=== PATIENT | male | born 1945 | race Caucasian/White ===

== ENCOUNTER → 2017-09-01 13:26 | Outpatient (CLI) | payer MEDICARE, SELFPAY ==
[2017-09-01 15:04] LABS: Hematocrit 43.4 % (40-54); Hemoglobin 14.4 g/dl (13.0-16.5); Mean Corp Hgb Conc 33.2 g/gl (32-36); Mean Corpuscular Hgb 28.2 pg (27.0-32.0); Mean Corpuscular Volume 84.9 fL (80-94); Mean Platelet Vol. 11.1 fl (6.2-12.0); Platelet Count 225 K/mm3 (150-450); Red Blood Count 5.11 M/mm3 (4.6-6.2); White Blood Count 7.2 K/mm3 (4.4-11.0)
[2017-09-01 15:23] LABS: Hemoglobin A1c 6.5 % (4.2-6.3)
[2017-09-01 15:40] LABS: Scan Indicated on CBC? Y/N NO
[2017-09-01 16:55] LABS: Albumin, Serum 3.4 g/dL (3.2-5.0); BUN 24 mg/dL (7-18); BUN/Creat Ratio 15.9 RATIO (10-20); Calcium,Total 8.8 mg/dL (8.5-10.1); Chloride 97 mmol/L (98-107); Creatinine, Serum 1.51 mg/dL (0.70-1.30); EST Glomerular Filtration Rate 49 mL/min (>60); Est Glom Filt Rate - Afr Amer 59 mL/min (>60); Glucose 75 mg/dL (74-106); Magnesium 2.2 mg/dL (1.6-2.6); Phosphorus 2.7 mg/dL (2.5-4.9); Potassium 3.1 mmol/L (3.5-5.1); Sodium Level 137 mmol/L (136-145)
[2017-09-02 10:30] LABS: PTHIN 116.3 pg/mL (18.4-80.1)
[2017-09-02 10:34] LABS: Vitamin D,25 Hydroxy 11.1 ng/mL (19.95-100.01)
== END ==
PROVIDERS: Visit Provider Internal Medicine Nephrology
DX: E11.22 Type 2 diabetes mellitus with diabetic chronic kidney disease (principal); N18.3 Chronic kidney disease, stage 3 (moderate); E55.9 Vitamin D deficiency, unspecified
CPT/HCPCS: 36415; 80069; 82043; 82306; 82570; 83036; 83735; 83970; 85027

== ENCOUNTER → 2017-09-05 10:18 | Outpatient (CLI) | payer MEDICARE, SELFPAY ==
[2017-09-05 13:13] LABS: Microalbumin:Creatinine Ratio 166.4 mg/g CRE (<30 mg/g CRE)
== END ==
PROVIDERS: Visit Provider Internal Medicine Nephrology
DX: E55.9 Vitamin D deficiency, unspecified (principal); N18.3 Chronic kidney disease, stage 3 (moderate); E11.69 Type 2 diabetes mellitus with other specified complication
CPT/HCPCS: 36415; 82043; 82570

== ENCOUNTER → 2017-10-21 09:37 | Outpatient (CLI) | payer MEDICARE, SELFPAY ==
--- NOTE | 2017-10-21 09:45 | RAD_ITS ---
STUDY: X-RAY CHEST REASON FOR EXAM: Male, 72 years old. Patient has a history of lung cancer. TECHNIQUE: PA and lateral views of the chest. COMPARISON: Comparison is made with prior examination dated July 01, 2017. FINDINGS: There is a 4 cm x 3.5 cm nodular density in the medial aspect of the right upper lobe. Increased markings at the lung bases suggestive of scarring worse on the left side. There is blunting of the left costophrenic angle. Normal size heart. Normal mediastinum and sal. Prominence of the pulmonary arteries bilaterally. There is atherosclerotic calcification of the aortic arch with tortuosity. There are diffuse degenerative changes of the visualized thoracic spine. Normal visualized ribs, clavicles, and shoulders. There is no demonstrated abnormality of the visualized soft tissue structures of the upper abdomen. RAD/Chest PA and Lateral IMPRESSION: Persistent nodular density in the medial aspect of the right upper lobe. Pleural parenchymal changes at the left lung base. Electronically Signed: Uriah Tyson MD at 14:31 EDT Tel [phone], Service support ,
== END ==
PROVIDERS: PCP Family Medicine; Visit Provider Student in an Organized Health Care Education/Training Program
DX: C34.90 Malignant neoplasm of unspecified part of unspecified bronchus or lung (principal)
CPT/HCPCS: 71046

== ENCOUNTER → 2017-12-22 07:40 | Outpatient (CLI) | payer MEDICARE, SELFPAY ==
[2017-10-26 09:45] VITALS: BMI 34.0
--- NOTE | 2017-12-22 08:02 | CT_ITS ---
STUDY: CT CHEST WITHOUT CONTRAST REASON FOR EXAM: Male, 72 years old. History of lung cancer, nodule follow-up RADIATION DOSAGE (If Supplied By Facility): CTDIvol = ( 15.53 ) mGy, DLP = ( 574.52 ) mGycm TECHNIQUE: Transaxial imaging was performed without the administration of intravenous contrast material. Multiplanar coronal and sagittal images were reformatted. Individualized dose optimization techniques were used for this CT. COMPARISON: 06/01/2017 FINDINGS: Lung windows show underlying emphysema. There is a fibrotic scar in the right apex seen on axial image 13. A previously described mass in the posterior right upper lobe is again identified on axial image 27 measuring 2.94 x 1.96 cm essentially unchanged from the previous study. There are scattered interstitial changes in both lung bhat but no other suspicious mass or nodule noted. There is a small left pleural effusion with associated atelectasis in the left lung base. Soft tissue windows show normal-appearing left thyroid lobe. The right lobe has likely been removed. There are scattered subcentimeter axillary and mediastinal lymph nodes. Nodes measure up to 9 mm in short axis dimension largest is in the precarinal space on axial image 47. Dense peripheral calcifications noted in the thoracic aorta without aneurysm. There are calcified coronary vessels. There is a tiny pericardial effusion. Limited cuts through the upper abdomen show dense calcifications in the right lobe of liver unchanged from the previous study. Bony structures show degenerative change CT/Chest without Contrast IMPRESSION: Underlying emphysema. Previously described spiculated mass in the right upper lobe is essentially unchanged from the previous study. Stable fibrotic scar in the right apex No new suspicious noncalcified mass or nodule. Small left pleural effusion with associated atelectasis. Stable scattered axillary and mediastinal lymphadenopathy. Degenerative bony changes Stable hepatic calcifications Electronically Signed: Javier Machuca MD at 10:24 EDT , Service support ,
== END ==
PROVIDERS: PCP Family Medicine; Visit Provider Student in an Organized Health Care Education/Training Program
DX: C34.90 Malignant neoplasm of unspecified part of unspecified bronchus or lung (principal)
CPT/HCPCS: 71250

== ENCOUNTER 2018-01-08 09:00 | Outpatient (RCR) | payer MEDICARE, SELFPAY ==
[2017-10-26 09:45] VITALS: BMI 34.0
[2017-12-11 10:32] VITALS: BP 104/68; PULSE 71; RESP 18; TEMP 36.6; BMI 34.4
--- NOTE | 2017-12-11 13:09 | PCM.WC.HP ---
(1) Peripheral vascular occlusive disease Status: Acute Current Visit: Yes Code(s): I73.9 - Peripheral vascular disease, unspecified (2) Chronic a-fib Status: Chronic Current Visit: Yes Code(s): I48.2 - Chronic atrial fibrillation (3) Diabetes mellitus without complication Status: Chronic Current Visit: Yes Code(s): E11.9 - Type 2 diabetes mellitus without complications (4) Hypertension Status: Chronic Current Visit: Yes Qualifiers: Code(s): I10 - Essential (primary) hypertension (5) Hypothyroidism Status: Chronic Current Visit: Yes Code(s): E03.9 - Hypothyroidism, unspecified (6) Peripheral vascular disease Status: Chronic Current Visit: Yes Code(s): I73.9 - Peripheral vascular disease, unspecified (7) Lymphedema Status: Acute Current Visit: Yes Code(s): I89.0 - Lymphedema, not elsewhere classified History of Present Illness Date of Service: 12/11/17 Chief Complaint: Follow-up on bilateral lower leg edema and open areas History of Wound: 72-year-old white male patient that sees Dr. Rubalcava as primary care. Patient usually goes to the [facility] for his lower leg edema. They have only been changing dressings and they gave him a pump. The patient has never had any vascular studies done and therefore his legs have never really decreased in size and they have been fighting this for 20 years. He sleeps in a chair not in his bed because of a anand going up his back. Bilateral lower leg well-demarcated erythematous raised rash covering both ankles to knees on both bilateral legs. Bilateral feet are crusted and swollen. The was there in the room with us and she will help with dressing changes the ulcers on his legs are really skin tears and superficial breaks in skin from the seepage of the serous drainage that is soaking his bandages. Today we will start using Xeroform dressings to the superficial skin tear areas and put him in double layer Tubigrip's and get vascular studies and then probably have him follow-up with Dr. Dee. 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) Chronic respiratory failure (Chronic) COPD (chronic obstructive pulmonary disease) (Chronic) Chronic a-fib (Chronic) Past Medical History: Lymphedema peripheral vascular occlusive disease superficial ulcers of bilateral lower legs Surgical History: - - Thyroidectomy, left nephrectomy, appendectomy, skin biopsy Allergies/Adverse Reactions: Allergies Penicillins Adverse Reaction (Verified 12/11/17 11:25) Rash cephalixin Allergy (Uncoded 12/11/17 11:25) gi upset Home Medications: Ambulatory Orders Medication Instructions Recorded Levothyroxine [Synthroid] 100 mcg PO DAILY 03/31/14 Metoprolol Succinate 50 mg PO DAILY 03/31/14 Tamsulosin HCl [Flomax] 0.4 mg PO DAILY 03/31/14 Potassium 99 mg PO DAILY 10/12/15 traMADol [Ultram] 50 mg PO Q6H PRN PRN 10/12/15 Albuterol IH (ProAir) [Proair Hfa] 1 - 2 puff INHALATION Q6H PRN PRN 05/06/17 Fluticasone/Vilanterol [Breo 1 puff INHALATION DAILY 05/06/17 Ellipta 200-25 Mcg INH] Naproxen Sodium [Aleve] 220 mg PO Q12H PRN PRN 10/26/17 cyclobenzaprine 10 mg tablet 10 mg PO TID PRN 11/20/17 furosemide 40 mg tablet 40 mg PO QDAY 11/20/17 rivaroxaban 15 mg tablet 15 mg PO QPM 11/20/17 Digoxin [Lanoxin] 250 mcg PO DAILY 12/11/17 Finasteride [Proscar] 5 mg PO DAILY 12/11/17 - Family History Paternal Family History: Family History (Last Reviewed 11/20/17 @ 10:33 by Shayla Vigil) Father Cancer Cancer - Lung cancer Maternal Family History: Family History (Last Reviewed 11/20/17 @ 10:33 by Shayla Vigil) Father Cancer Heart Disease Lives: Spouse/ Significant Other Smoking Status: Former smoker Review of Systems Constitutional: Denies: Chills, Fever Eyes: Denies: Blurred vision, Drainage, Pain HEENT: Denies: Difficulty Hearing, Difficulty Swallowing, Sore Throat, Visual Changes Cardiovascular: Denies: Chest Pain, Palpitations, Syncope Respiratory: Denies: Cough, Shortness of Breath Gastrointestinal: Denies: Abdominal Pain, Nausea, Vomiting Genitourinary: Denies: Dysuria, Frequency Musculoskeletal: Denies: Joint Pain, Muscle pain Skin: Denies: Jaundice, Rash Neurological: Denies: Balance problems, Change in Speech, Difficulty swallowing, Focal weakness Psychiatric: Denies: Anxiety, Depression Endocrine: Denies: Change in Body Habitus Hematologic/ Lymphatic: Denies: Adenopathy - Physical Exam Vital Signs Temp Pulse Resp BP 97.8 F 71 18 104/68 12/11/17 10:32 12/11/17 10:32 12/11/17 10:32 12/11/17 10:32 General: Oriented x3, Cooperative, Well developed HEENT: Atraumatic, PERRLA Oral: Moist Mucosa Neck: Supple, No JVD Lungs: Clear to auscultation, Normal air movement Cardiovascular: Regular rate, Regular Rhythm Abdomen: Bowel Sounds Present, Soft, Non Tender, No Hepato-splenomegaly Extremities: No clubbing, Diminished Peripheral Pulses, Edema, - - Tamiko discolored lower extremities with superficial skin tears on both legs Wound Measurements and Assessment WC - Nurse 1 - General Ulcer Measurement Start: 12/11/17 09:49 Freq: Status: Active Protocol: Activity Type Activity Date Activity User E-Sign Co-Sign Detail Recorded Client Recorded Date Recorded By Document 12/11/17 10:32 [facility] [id number] 12/11/17 11:11 [facility] 12/11/17 10:32 Wound Center Nurse 1 [Ulcer Assessment] #7- LT LOWER CALF -Combined with other wound No -Current Size (cm) - Length 7.9 -Current Size (cm) - Width 3.5 -Current Size (cm) - Depth 0.1 -Total Square Cm 27.65 -Date of Last Picture (Recall this 12/11/17 field) -Photo Taken Yes -Epithelialization None Present -Tunneling No -Undermining/Tunneling No -Circular Undermining No -Exudate Amt Medium (34-66%) -Exudate Type Serous -Wound Margin Distinct, Outline Attached -Granulation Amt Large (67-100%) -Granulation Quality Red -Slough/Fibrin No -Necrosis Amt None Present (0 %) -Structure Exposed None/Limited to Skin Breakdown -Texture (Shani-wound Skin Appearance) Scarring -Moisture (Shani-wound Skin Appearance Maceration ) Weeping -Color (Shani-wound Skin Appearance) Erythema Hemosiderin Staining -Temperature (Shani-wound Skin No Abnormality Appearance) (Pt Warm) -Tenderness on Palpation (Shani-wound No Skin Appearance) -Ulcer Cleansing Wound Cleanser -Foul Odor after Cleansing No -Anesthetic Used 4% Lidocaine Solution #6- L LAT LEG SUPERIOR -Combined with other wound No -Current Size (cm) - Length 0.7 -Current Size (cm) - Width 0.5 -Current Size (cm) - Depth 0.1 -Total Square Cm 0.35 -Date of Last Picture (Recall this 12/11/17 field) -Photo Taken Yes -Epithelialization None Present -Tunneling No -Undermining/Tunneling No -Circular Undermining No -Exudate Amt Small (1-33%) -Exudate Type Serous -Wound Margin Distinct, Outline Attached -Granulation Amt Large (67-100%) -Granulation Quality Red -Slough/Fibrin No -Necrosis Amt None Present (0 %) -Structure Exposed N/A -Texture (Shani-wound Skin Appearance) Scarring -Moisture (Shani-wound Skin Appearance Maceration ) Weeping -Color (Shani-wound Skin Appearance) Erythema Hemosiderin Staining -Temperature (Shani-wound Skin No Abnormality Appearance) (Pt Warm) -Tenderness on Palpation (Shani-wound No Skin Appearance) -Ulcer Cleansing Wound Cleanser -Foul Odor after Cleansing No -Anesthetic Used 4% Lidocaine Solution #5- LT LAT LEG INFERIOR -Combined with other wound No -Current Size (cm) - Length 0.9 -Current Size (cm) - Width 0.3 -Current Size (cm) - Depth 0.1 -Total Square Cm 0.27 -Date of Last Picture (Recall this 12/11/17 field) -Photo Taken Yes -Epithelialization None Present -Tunneling No -Undermining/Tunneling No -Circular Undermining No -Exudate Amt Small (1-33%) -Exudate Type Serous -Wound Margin Distinct, Outline Attached -Granulation Amt None Present (0 %) -Slough/Fibrin Yes -Necrosis Amt Large (67-100%) -Necrotic Tissue Type Adherent Slough -Structure Exposed None/Limited to Skin Breakdown -Texture (Shani-wound Skin Appearance) Scarring -Moisture (Shani-wound Skin Appearance Maceration ) Weeping -Color (Shani-wound Skin Appearance) Erythema Hemosiderin Staining -Temperature (Shani-wound Skin No Abnormality Appearance) (Pt Warm) -Tenderness on Palpation (Shani-wound No Skin Appearance) -Ulcer Cleansing Wound Cleanser -Foul Odor after Cleansing No -Anesthetic Used 4% Lidocaine Solution #4- L LAT LEG CLUSTER -Combined with other wound No -Current Size (cm) - Length 8.4 -Current Size (cm) - Width 6.9 -Current Size (cm) - Depth 0.1 -Total Square Cm 57.96 -Date of Last Picture (Recall this 12/11/17 field) -Photo Taken Yes -Epithelialization None Present -Tunneling No -Undermining/Tunneling No -Circular Undermining No -Exudate Amt Medium (34-66%) -Exudate Type Serous -Wound Margin Distinct, Outline Attached -Granulation Amt Large (67-100%) -Granulation Quality Red -Slough/Fibrin No -Necrosis Amt None Present (0 %) -Structure Exposed None/Limited to Skin Breakdown -Texture (Shani-wound Skin Appearance) Scarring -Moisture (Shani-wound Skin Appearance Maceration ) Weeping -Color (Shani-wound Skin Appearance) Erythema Hemosiderin Staining -Temperature (Shani-wound Skin No Abnormality Appearance) (Pt Warm) -Tenderness on Palpation (Shani-wound No Skin Appearance) -Ulcer Cleansing Wound Cleanser -Foul Odor after Cleansing No -Anesthetic Used 4% Lidocaine Solution #3- LT BERNARD -Combined with other wound No -Current Size (cm) - Length 1.2 -Current Size (cm) - Width 0.2 -Current Size (cm) - Depth 0.1 -Total Square Cm 0.24 -Date of Last Picture (Recall this 12/11/17 field) -Photo Taken Yes -Epithelialization None Present -Tunneling No -Undermining/Tunneling No -Circular Undermining No -Exudate Amt Small (1-33%) -Exudate Type Serous -Wound Margin Distinct, Outline Attached -Granulation Amt Large (67-100%) -Granulation Quality Red -Slough/Fibrin No -Necrosis Amt None Present (0 %) -Structure Exposed None/Limited to Skin Breakdown -Texture (Shani-wound Skin Appearance) Scarring -Moisture (Shani-wound Skin Appearance Maceration ) Weeping -Color (Shani-wound Skin Appearance) Erythema Hemosiderin Staining -Temperature (Shani-wound Skin No Abnormality Appearance) (Pt Warm) -Tenderness on Palpation (Shani-wound No Skin Appearance) -Ulcer Cleansing Rinsed/ Irrigated with Saline -Foul Odor after Cleansing No -Anesthetic Used 4% Lidocaine Solution #2- LT UPPER MEDIAL LEG -Combined with other wound No -Current Size (cm) - Length 1.3 -Current Size (cm) - Width 0.9 -Current Size (cm) - Depth 0.1 -Total Square Cm 1.17 -Date of Last Picture (Recall this 12/11/17 field) -Photo Taken Yes -Epithelialization None Present -Tunneling No -Undermining/Tunneling No -Circular Undermining No -Exudate Amt Small (1-33%) -Exudate Type Serous -Wound Margin Distinct, Outline Attached -Granulation Amt Large (67-100%) -Granulation Quality Red -Slough/Fibrin No -Necrosis Amt None Present (0 %) -Structure Exposed None/Limited to Skin Breakdown -Texture (Shani-wound Skin Appearance) Scarring -Moisture (Shani-wound Skin Appearance Maceration ) Weeping -Color (Shani-wound Skin Appearance) Erythema Hemosiderin Staining -Temperature (Shani-wound Skin No Abnormality Appearance) (Pt Warm) -Tenderness on Palpation (Shani-wound No Skin Appearance) -Ulcer Cleansing Wound Cleanser -Foul Odor after Cleansing No -Anesthetic Used 4% Lidocaine Solution #1- RT LAT LEG -Combined with other wound No -Current Size (cm) - Length 1.8 -Current Size (cm) - Width 3.2 -Current Size (cm) - Depth 0.1 -Total Square Cm 5.76 -Date of Last Picture (Recall this 12/11/17 field) -Photo Taken Yes -Epithelialization None Present -Tunneling No -Undermining/Tunneling No -Circular Undermining No -Exudate Amt Medium (34-66%) -Exudate Type Serous -Wound Margin Distinct, Outline Attached -Granulation Amt Large (67-100%) -Granulation Quality Red -Slough/Fibrin No -Necrosis Amt None Present (0 %) -Structure Exposed None/Limited to Skin Breakdown -Texture (Shani-wound Skin Appearance) Scarring -Moisture (Shani-wound Skin Appearance Maceration ) Weeping -Color (Shani-wound Skin Appearance) Erythema Hemosiderin Staining -Temperature (Shani-wound Skin No Abnormality Appearance) (Pt Warm) -Tenderness on Palpation (Shani-wound No Skin Appearance) -Ulcer Cleansing Wound Cleanser -Foul Odor after Cleansing No -Anesthetic Used 4% Lidocaine Solution [Edema Assessment] -Lower Limb Edema Present Yes -Right Calf (cm) 47.1 -Right Ankle (cm) 30 -Left Calf (cm) 41 -Left Ankle (cm) 28.4 Musculoskeletal: No Tenderness to Palpation of Joints or Extremities Lymphatic: No Cervical, Supraclavicular, or Inguinal Adenopathy Neurological: Cranial nerves II-XII grossly intact, Neuro grossly intact Psych/Mental Status: Normal Affect, Appropriate, Alert and oriented to time, place, person, mood and affect Debridement Note No debridement was completed today Assessment/Plan Active Problems (Last Updated 11/06/17 @ 14:15 by Shayla Vigil) Peripheral vascular occlusive disease (Acute) Lymphedema (Acute) Diabetes mellitus without complication (Chronic) Hypertension (Chronic) Peripheral vascular disease (Chronic) Hypothyroidism (Chronic) Chronic a-fib (Chronic) Assessment: peripheral vascular occlusive disease. Lymphedema. Skin tears for superficial ulcers bilateral lower legs. A. fib Plan: Wash legs with Hibiclens. Apply Xeroform dressings to all open areas. Then gauze legs and wrap with Geovani Tubigrip's. Get the ultrasounds and the arterial brachial studies done of bilateral lower legs. follow Up in 1 week
--- NOTE | 2018-01-04 12:29 | VDLE_ITS ---
Reason For Study: edema, nonhealing wounds RIGHT LEFT CFV is compressible, spontaneous, phasic, CFV is compressible, spontaneous, phasic, competent and demonstrates normal competent, and demonstrates normal augmentation. augmentation. FV is compressible, spontaneous, phasic, FV is compressible, spontaneous, phasic, competent and demonstrates normal competent and demonstrates normal augmentation. augmentation. POP V is compressible, spontaneous, phasic, POP V is compressible, spontaneous, phasic, competent and demonstrates normal competent and demonstrates normal augmentation. augmentation. T/P Trunk is compressible. T/P Trunk is compressible. PTV is compressible. PTV is compressible. RT PerV is compressible. LT PerV is compressible. S-F Junction is competent. S-F Junction is competent. GSV is competent throughout. GSV is coompetent throughout. SSV is competent. SSV is incompetent for greater than .5 seconds. SSv measures .625 x .661 cm. Interpretation Summary Deep veins of the lower extremities are bilaterally patent and compressible segmentally. There is no evidence of deep vein thrombosis on either side. Valvular competence appears intact within the proximal deep venous systems bilaterally. The greater saphenous veins appear bilaterally patent and compressible segmentally. Sapheno-femoral junctions are bilaterally competent . Valvular competence appears to be intact segmentally within the greater saphenous veins bilaterally. The right small saphenous vein is patent and competent. The left small saphenous vein is patent and incompetent. Ordering Physician: ILEANA PERES Performed By: Calderon Sewell RVT
--- NOTE | 2018-01-05 14:41 | LEAS ---
Arterial Study - Arterial Study Arterial Study: This is a 72-year-old male who presents with a history of atrial fibrillation, chronic obstructive pulmonary disease, diabetes mellitus, hypertension, and smoking. The patient also has a history of peripheral arterial occlusive disease. He is brought to the noninvasive vascular laboratory at this time for the purpose of bilateral noninvasive lower extremity arterial assessment. Doppler signal assessment was used to evaluate the pulses at ankle level bilaterally. The posterior tibial and dorsalis pedis pulses were triphasic bilaterally. Segmental limb pressures were obtained bilaterally. The right ankle pressure, as determined by posterior tibial pulse, was measured at 127 mmHg. The right ankle pressure, as determined by dorsalis pedis pulse, was measured at 143 mmHg. The right digital pressure was measured at 109 mmHg. The left ankle pressure, as determined by posterior tibial pulse, was measured at 138 mmHg. The left ankle pressure, as determined by dorsalis pedis pulse, was measured at 145 mmHg. The left digital pressure was measured at 100 mmHg. Pulse-volume recordings were obtained bilaterally and segmentally. Waveform amplitudes appeared to be satisfactory at all levels bilaterally, including low thigh, calf, ankle, and digital levels. Resting ankle-brachial indices were calculated bilaterally. The resting right ankle-brachial index was calculated to be 1.22. The resting left ankle-brachial index was calculated to be 1.24. Digital-brachial indices were calculated bilaterally. The right digital-brachial index was calculated to be 0.93. The left digital-brachial index was calculated to be 0.85. Impression: Based upon the findings of this resting noninvasive lower extremity arterial study, there is no evidence of significant atherosclerotic peripheral arterial occlusive disease in the lower extremities bilaterally. Triphasic waveforms were noted at ankle level bilaterally. Resting ankle-brachial indices were bilaterally normal. Digital-brachial indices were also normal bilaterally. In summary, this represents a normal resting noninvasive lower extremity arterial study bilaterally.
--- NOTE | 2018-01-05 14:49 | LEAS_ITS ---
Arterial Study - Arterial Study Arterial Study: This is a 72-year-old male who presents with a history of atrial fibrillation, chronic obstructive pulmonary disease, diabetes mellitus, hypertension, and smoking. The patient also has a history of peripheral arterial occlusive disease. He is brought to the noninvasive vascular laboratory at this time for the purpose of bilateral noninvasive lower extremity arterial assessment. Doppler signal assessment was used to evaluate the pulses at ankle level bilaterally. The posterior tibial and dorsalis pedis pulses were triphasic bilaterally. Segmental limb pressures were obtained bilaterally. The right ankle pressure, as determined by posterior tibial pulse, was measured at 127 mmHg. The right ankle pressure, as determined by dorsalis pedis pulse, was measured at 143 mmHg. The right digital pressure was measured at 109 mmHg. The left ankle pressure, as determined by posterior tibial pulse, was measured at 138 mmHg. The left ankle pressure, as determined by dorsalis pedis pulse, was measured at 145 mmHg. The left digital pressure was measured at 100 mmHg. Pulse-volume recordings were obtained bilaterally and segmentally. Waveform amplitudes appeared to be satisfactory at all levels bilaterally, including low thigh, calf, ankle, and digital levels. Resting ankle-brachial indices were calculated bilaterally. The resting right ankle-brachial index was calculated to be 1.22. The resting left ankle- brachial index was calculated to be 1.24. Digital-brachial indices were calculated bilaterally. The right digital- brachial index was calculated to be 0.93. The left digital-brachial index was calculated to be 0.85. Impression: Based upon the findings of this resting noninvasive lower extremity arterial study, there is no evidence of significant atherosclerotic peripheral arterial occlusive disease in the lower extremities bilaterally. Triphasic waveforms were noted at ankle level bilaterally. Resting ankle-brachial indices were bilaterally normal. Digital-brachial indices were also normal bilaterally. In summary, this represents a normal resting noninvasive lower extremity arterial study bilaterally.
[2018-01-08 08:50] VITALS: BP 100/60; PULSE 65; RESP 18; TEMP 36.9; BMI 34.4
--- NOTE | 2018-01-08 11:41 | PCM.WC.PN ---
(1) Peripheral vascular occlusive disease Status: Acute Current Visit: Yes Code(s): I73.9 - Peripheral vascular disease, unspecified (2) Chronic a-fib Status: Chronic Current Visit: Yes Code(s): I48.2 - Chronic atrial fibrillation (3) Diabetes mellitus without complication Status: Chronic Current Visit: Yes Code(s): E11.9 - Type 2 diabetes mellitus without complications (4) Hypertension Status: Chronic Current Visit: Yes Qualifiers: Code(s): I10 - Essential (primary) hypertension (5) Hypothyroidism Status: Chronic Current Visit: Yes Code(s): E03.9 - Hypothyroidism, unspecified (6) Peripheral vascular disease Status: Chronic Current Visit: Yes Code(s): I73.9 - Peripheral vascular disease, unspecified (7) Lymphedema Status: Acute Current Visit: Yes Code(s): I89.0 - Lymphedema, not elsewhere classified (8) Peripheral arterial occlusive disease Status: Acute Current Visit: Yes Code(s): I77.9 - Disorder of arteries and arterioles, unspecified Type of Wound Date of Service: 01/08/18 Chief Complaint: Follow-up on bilateral lower leg edema and open areas History of Wound: 72-year-old white male patient that sees Dr. Rubalcava as primary care. Patient usually goes to the [facility] for his lower leg edema. They have only been changing dressings and they gave him a pump. The patient has never had any vascular studies done and therefore his legs have never really decreased in size and they have been fighting this for 20 years. He sleeps in a chair not in his bed because of a anand going up his back. Bilateral lower leg well-demarcated erythematous raised rash covering both ankles to knees on both bilateral legs. Bilateral feet are crusted and swollen. The was there in the room with us and she will help with dressing changes the ulcers on his legs are really skin tears and superficial breaks in skin from the seepage of the serous drainage that is soaking his bandages. Today we will start using Xeroform dressings to the superficial skin tear areas and put him in double layer Tubigrip's and get vascular studies and then probably have him follow-up with Dr. Dee. Progress of Wound: Today we went over his arterial brachial and venous studies. They show minimal venous occlusion in the left calf area. The arterial study shows some suggestion of severe arterial disease with some narrowing as he goes into his toes. Patient is going to be referred to Dr. Dee for further evaluation and treatment. Patient has had his leg squeezed down enough now that he can wear his stockings which is new and a good sign. Patient was in much better spirits than his last visit with us. His was quite thankful for getting the studies done and getting to the right Dr. - Physical Exam Vital Signs Temp Pulse Resp BP 98.4 F 65 18 100/60 01/08/18 08:50 01/08/18 08:50 01/08/18 08:50 01/08/18 08:50 General: Oriented x3, Cooperative, Well developed HEENT: Atraumatic, PERRLA Oral: Moist Mucosa Neck: Supple, No JVD Lungs: Clear to auscultation, Normal air movement Cardiovascular: Regular rate, Regular Rhythm Abdomen: Bowel Sounds Present, Soft, Non Tender, No Hepato-splenomegaly Extremities: No clubbing, Edema, - - Peripheral vascular and peripheral arterial disease bilateral lower legs Skin: Rash Present Wound Measurements and Assessment WC - Nurse 1 - General Ulcer Measurement Start: 12/11/17 09:49 Freq: Status: Active Protocol: Activity Type Activity Date Activity User E-Sign Co-Sign Detail Recorded Client Recorded Date Recorded By Document 01/08/18 08:50 [id number] 01/08/18 09:19 01/08/18 08:50 Wound Center Nurse 1 [Ulcer Assessment] #8- LT LOWER CALF -Combined with other wound No -Current Size (cm) - Length 1.5 -Current Size (cm) - Width 1.5 -Current Size (cm) - Depth 0.1 -Total Square Cm 2.25 -Photo Taken No -Epithelialization Small 1-33% -Tunneling No -Undermining/Tunneling No -Circular Undermining No -Classification - Thickness Full Thickness without Exposed Support Structure -Exudate Amt Small (1-33%) -Exudate Type Serous -Wound Margin Distinct, Outline Attached -Granulation Amt Large (67-100%) -Granulation Quality [place] -Slough/Fibrin Yes -Necrosis Amt Small (1-33%) -Necrotic Tissue Type Adherent Slough -Structure Exposed Fascia Fat Layer Exposed -Texture (Shani-wound Skin Appearance) Assessed Localized Edema Scarring -Moisture (Shani-wound Skin Appearance No Abnormality ) -Color (Shani-wound Skin Appearance) Erythema Hemosiderin Staining -Temperature (Shani-wound Skin No Abnormality Appearance) (Pt Warm) -Tenderness on Palpation (Shani-wound No Skin Appearance) -Ulcer Cleansing hibiclens -Foul Odor after Cleansing No -Anesthetic Used 4% Lidocaine Solution #7- L LAT LEG SUPERIOR -Combined with other wound No -Current Size (cm) - Length 0 -Current Size (cm) - Width 0 -Current Size (cm) - Depth 0 -Total Square Cm 0 -Date of Last Picture (Recall this 01/08/18 field) -Photo Taken Yes -Epithelialization Large 67-100% -Tunneling No -Undermining/Tunneling No -Circular Undermining No -Classification - Thickness Full Thickness without Exposed Support Structure -Exudate Amt None Present (0 %) -Wound Margin Distinct, Outline Attached -Granulation Amt Large (67-100%) -Granulation Quality [place] -Slough/Fibrin No -Necrosis Amt None Present (0 %) -Structure Exposed None/Limited to Skin Breakdown -Texture (Shani-wound Skin Appearance) Localized Edema Scarring -Moisture (Shani-wound Skin Appearance Dry/Scaly ) -Color (Shani-wound Skin Appearance) Hemosiderin Staining -Temperature (Shani-wound Skin No Abnormality Appearance) (Pt Warm) -Tenderness on Palpation (Shani-wound No Skin Appearance) -Ulcer Cleansing hibiclens -Foul Odor after Cleansing No #6- LT LAT LEG INFERIOR -Combined with other wound No -Current Size (cm) - Length 0 -Current Size (cm) - Width 0 -Current Size (cm) - Depth 0 -Total Square Cm 0 -Date of Last Picture (Recall this 01/08/18 field) -Photo Taken Yes -Epithelialization Large 67-100% -Tunneling No -Undermining/Tunneling No -Circular Undermining No -Classification - Thickness Full Thickness without Exposed Support Structure -Exudate Amt None Present (0 %) -Wound Margin Distinct, Outline Attached -Granulation Amt Large (67-100%) -Granulation Quality [place] -Slough/Fibrin No -Necrosis Amt None Present (0 %) -Structure Exposed None/Limited to Skin Breakdown -Texture (Shani-wound Skin Appearance) Localized Edema Scarring -Moisture (Shani-wound Skin Appearance Dry/Scaly ) -Color (Shani-wound Skin Appearance) Hemosiderin Staining -Temperature (Shani-wound Skin No Abnormality Appearance) (Pt Warm) -Tenderness on Palpation (Shani-wound No Skin Appearance) -Ulcer Cleansing hibclens -Foul Odor after Cleansing No #5- L LAT LEG CLUSTER -Combined with other wound No -Current Size (cm) - Length 6.0 -Current Size (cm) - Width 6.5 -Current Size (cm) - Depth 0.1 -Total Square Cm 39.00 -Epithelialization Small 1-33% -Tunneling No -Undermining/Tunneling No -Circular Undermining No -Classification - Thickness Full Thickness without Exposed Support Structure -Exudate Amt Medium (34-66%) -Exudate Type Serous -Wound Margin Fibrotic Scar, Thickened Scar -Granulation Amt Large (67-100%) -Granulation Quality [place] -Slough/Fibrin Yes -Necrosis Amt Small (1-33%) -Necrotic Tissue Type Adherent Slough -Structure Exposed Fascia Fat Layer Exposed -Texture (Shani-wound Skin Appearance) Friable Localized Edema Scarring -Moisture (Shani-wound Skin Appearance Weeping ) -Color (Shani-wound Skin Appearance) Erythema Hemosiderin Staining -Temperature (Shani-wound Skin No Abnormality Appearance) (Pt Warm) -Tenderness on Palpation (Shani-wound No Skin Appearance) -Ulcer Cleansing hibiclens -Foul Odor after Cleansing No -Anesthetic Used 4% Lidocaine Solution #4- LT BERNARD -Combined with other wound No -Current Size (cm) - Length 0 -Current Size (cm) - Width 0 -Current Size (cm) - Depth 0 -Total Square Cm 0 -Date of Last Picture (Recall this 01/08/18 field) -Photo Taken Yes -Epithelialization Large 67-100% -Tunneling No -Undermining/Tunneling No -Circular Undermining No -Classification - Thickness Full Thickness without Exposed Support Structure -Exudate Amt None Present (0 %) -Wound Margin Distinct, Outline Attached -Granulation Quality [place] -Slough/Fibrin No -Necrosis Amt None Present (0 %) -Structure Exposed None/Limited to Skin Breakdown -Texture (Shani-wound Skin Appearance) Localized Edema Scarring -Moisture (Shani-wound Skin Appearance Dry/Scaly ) -Color (Shani-wound Skin Appearance) Erythema Hemosiderin Staining -Temperature (Shani-wound Skin No Abnormality Appearance) (Pt Warm) -Ulcer Cleansing hibiclens -Foul Odor after Cleansing No #3- LT UPPER MEDIAL LEG -Combined with other wound No -Current Size (cm) - Length 0 -Current Size (cm) - Width 0 -Current Size (cm) - Depth 0 -Total Square Cm 0 -Date of Last Picture (Recall this 01/08/18 field) -Photo Taken Yes -Epithelialization Large 67-100% -Tunneling No -Undermining/Tunneling No -Circular Undermining No -Classification - Thickness Full Thickness without Exposed Support Structure -Exudate Amt None Present (0 %) -Wound Margin Distinct, Outline Attached -Granulation Amt Large (67-100%) -Granulation Quality [place] -Slough/Fibrin No -Necrosis Amt None Present (0 %) -Structure Exposed None/Limited to Skin Breakdown -Texture (Shani-wound Skin Appearance) Localized Edema Scarring -Moisture (Shani-wound Skin Appearance Dry/Scaly ) -Color (Shani-wound Skin Appearance) Hemosiderin Staining -Temperature (Shani-wound Skin No Abnormality Appearance) (Pt Warm) -Tenderness on Palpation (Shani-wound No Skin Appearance) -Ulcer Cleansing hibiclens -Foul Odor after Cleansing No #2- RT LAT LEG -Combined with other wound No -Current Size (cm) - Length 0 -Current Size (cm) - Width 0 -Current Size (cm) - Depth 0 -Total Square Cm 0 -Date of Last Picture (Recall this 01/08/18 field) -Photo Taken Yes -Epithelialization Large 67-100% -Tunneling No -Undermining/Tunneling No -Circular Undermining No -Classification - Thickness Full Thickness without Exposed Support Structure -Exudate Amt None Present (0 %) -Wound Margin Distinct, Outline Attached -Granulation Amt Large (67-100%) -Granulation Quality [place] -Slough/Fibrin No -Necrosis Amt None Present (0 %) -Structure Exposed None/Limited to Skin Breakdown -Texture (Shani-wound Skin Appearance) Localized Edema Scarring -Moisture (Shani-wound Skin Appearance Dry/Scaly ) -Color (Shani-wound Skin Appearance) Erythema Hemosiderin Staining -Temperature (Shani-wound Skin No Abnormality Appearance) (Pt Warm) -Tenderness on Palpation (Shani-wound No Skin Appearance) -Ulcer Cleansing hibiclens -Foul Odor after Cleansing No [Edema Assessment] -Lower Limb Edema Present Yes -Right Calf (cm) 42.0 -Right Ankle (cm) 29.0 -Left Calf (cm) 40.5 -Point of Measurement (cm from the 28.0 medial instep) Musculoskeletal: No Tenderness to Palpation of Joints or Extremities Lymphatic: No Cervical, Supraclavicular, or Inguinal Adenopathy Neurological: Cranial nerves II-XII grossly intact, Neuro grossly intact Psych/Mental Status: Normal Affect, Appropriate, Alert and oriented to time, place, person, mood and affect Debridement Note No debridement was completed today Assessment/Plan Active Problems (Last Updated 11/06/17 @ 14:15 by Shayla Vigil) Peripheral vascular occlusive disease (Acute) Lymphedema (Acute) Peripheral arterial occlusive disease (Acute) Diabetes mellitus without complication (Chronic) Hypertension (Chronic) Peripheral vascular disease (Chronic) Hypothyroidism (Chronic) Chronic a-fib (Chronic) Assessment: peripheral vascular occlusive disease. Lymphedema. Skin tears for superficial ulcers bilateral lower legs. A. fib. Peripheral arterial occlusive disease Plan: Patient was instructed to use amLactin cream to all dry areas on his lower legs and to continue wearing his compression stockings. A referral has been made to Dr. Dee for further evaluation of his venous and arterial occlusive problem.
== END 2018-01-09 23:59 ==
LOC: WC 09:00
PROVIDERS: PCP Family Medicine; Visit Provider Nurse Practitioner
DX: E11.51 Type 2 diabetes mellitus with diabetic peripheral angiopathy without gangrene (principal); I10 Essential (primary) hypertension; I89.0 Lymphedema, not elsewhere classified; J44.9 Chronic obstructive pulmonary disease, unspecified; I48.0 Paroxysmal atrial fibrillation; Z79.899 Other long term (current) drug therapy; Z87.891 Personal history of nicotine dependence; S81.812A Laceration without foreign body, left lower leg, initial encounter; S81.811A Laceration without foreign body, right lower leg, initial encounter; X58.XXXA Exposure to other specified factors, initial encounter; R60.0 Localized edema
CPT/HCPCS: 11042; 93923; 93970; 99212; 99214; G0463

== ENCOUNTER → 2018-02-12 14:48 | Outpatient (CLI) | payer MEDICARE, SELFPAY ==
[2017-10-26 09:45] VITALS: BMI 34.0
[2018-02-12 15:57] LABS: Hematocrit 39.1 % (40-54); Hemoglobin 12.1 g/dl (13.0-16.5); Mean Corp Hgb Conc 30.9 g/gl (32-36); Mean Corpuscular Hgb 26.2 pg (27.0-32.0); Mean Corpuscular Volume 84.6 fL (80-94); Mean Platelet Vol. 10.1 fl (6.2-12.0); Platelet Count 226 K/mm3 (150-450); RBC Distribution Width CV 18.5 % (11.6-14.6); RBC Distribution Width SD 57.1 fl (35.1-43.9); Red Blood Count 4.62 M/mm3 (4.6-6.2)
[2018-02-12 16:02] LABS: Scan Indicated on CBC? Y/N NO
[2018-02-12 16:07] LABS: Albumin, Serum 3.3 g/dL (3.2-5.0); BUN 25 mg/dL (7-18); BUN/Creat Ratio 19.7 RATIO (10-20); Calcium,Total 9.2 mg/dL (8.5-10.1); Chloride 98 mmol/L (98-107); Creatinine, Serum 1.27 mg/dL (0.70-1.30); EST Glomerular Filtration Rate 59 mL/min (>60); Est Glom Filt Rate - Afr Amer 72 mL/min (>60); Glucose 89 mg/dL (74-106); Magnesium 2.2 mg/dL (1.6-2.6); Phosphorus 3.3 mg/dL (2.5-4.9); Potassium 3.2 mmol/L (3.5-5.1); Sodium Level 141 mmol/L (136-145)
[2018-02-12 16:19] LABS: Vitamin D,25 Hydroxy 15.5 ng/mL (29.95-100.01)
[2018-02-12 16:34] LABS: Creatinine, Urine (random) < 13.00 mg/dL (NO RANGE EST.); Microalbumin,Random Urine 7.8 mg/L (NO RANGE EST.)
[2018-02-12 16:43] LABS: PTHIN 69.3 pg/mL (18.4-80.1)
== END ==
PROVIDERS: PCP Family Medicine; Visit Provider Internal Medicine Nephrology
DX: E11.22 Type 2 diabetes mellitus with diabetic chronic kidney disease (principal); N18.3 Chronic kidney disease, stage 3 (moderate); E55.9 Vitamin D deficiency, unspecified
CPT/HCPCS: 36415; 80069; 82043; 82306; 82570; 83036; 83735; 83970; 85027

== ENCOUNTER 2018-02-27 23:16 | Inpatient (IN) | payer MEDICARE, SELFPAY ==
[2017-10-26 09:45] VITALS: BMI 34.0
[2018-02-27 23:17] VITALS: BP 100/68; PULSE 73; RESP 16; TEMP 36.6; O2SAT 99; BMI 29.4
[2018-02-27 23:21] VITALS: O2SAT 99
[2018-02-27 23:34] VITALS: BP 88/54; PULSE 72; RESP 16; O2SAT 99
[2018-02-27 23:46] VITALS: PULSE 70; RESP 14
[2018-02-27] MEDS: Albuterol 2.5 MG/3 ML VIAL.NEB. INHALATION (23:46)
[2018-02-27] MEDS: Ipratropium/Albuterol Sulfate 3 ML AMPUL.NEB INHALATION (23:46)
--- NOTE | 2018-02-27 23:46 | ED.VISSUMM ---
- ER Visit Summary Date of Service: 02/27/18 Chief Complaint: Shortness of breath, generalized weakness and low blood pressure. History of Present Illness: The patient is a 72 M 3 of COPD on 5-6 L of oxygen at home. Also history of hmi-fkiymyv-asggdtnrh diabetes, treated for hypertension, history of A. fib on Xarelto. Patient had multiple cancers including lung, renal with a renal resection and thyroid cancer. He has had shortness of breath the last 2 days. And just been generally weak. He denies fever. He denies vomiting. He denies diarrhea or melena. He denies chest pain. Physical Examination: Older male vital signs initial blood pressure 100/38. Pulse ox is 99 but that is on 6 L of O2. He does not look septic or toxic currently. He does not look significantly dehydrated. H EENT exam unremarkable other than poor dentition. Neck nontender no JVD. No lymphadenopathy. Lungs coarse breath sounds bilaterally. No rales or rhonchi. Few scattered wheezes. Heart regular rhythm rate about 70. Abdomen soft nontender. Normal bowel sounds no peritoneal signs. Moving all 4 extremities. 1+ pitting edema both lower extremities. Equal symmetrical. Calves nontender. He does have compression stockings on his lower extremities. Neurologically is awake and alert moving all 4 extremities. Back is nontender. Test Results: EKG shows a sinus rhythm rate of 73 with a first-degree AV block. Right bundle branch block. Appears very similar to a prior EKG from April 2017. Chest x-ray shows chronic changes consistent with COPD and a right upper lung mass which is chronic. CBC shows a white count of 10. A hemoglobin of 7.7 within the last week his hemoglobin was 12. This is consistent with acute blood loss. I did a rectal exam on the patient is black stool consistent with an upper GI bleed. He is on Xarelto. Electrolytes show a BUN of 60 a creatinine of 1.38 which is his baseline renal insufficiency. Urinalysis is pending he is not given his urine yet his troponin is slightly elevated 0.049. His lactate is 3.0. Emergency Department Course and Treatment: Patient be treated with a liter normal saline bolus. Aerosol treatments with DuoNeb and albuterol. IV Solu-Medrol. I believe the patient's shortness of breath is from anemia. I believe the anemia is from an upper GI bleed. He is being typed and crossed. For 4 units. He will be transfused 2 units. He will also be started on Protonix. I spoke to Dr. Thomas the night hospitalist will admit him in the ICU. Also spoke to the on-call surgeon who can be consulted in the morning for upper endoscopy. Treatment Plan: ICU admission. Transfusion. Treated for an upper GI bleed. Disposition: Admission Impression: Acute dyspnea Acute hypotension Acute GI bleed suspect upper Anemia Critical care time 30 minutes. This note was generated with [employer] dictation software. It may contain incorrect words, spelling, and punctuation that were not noted in review of the chart prior to signing ED Disposition - Plan for ED Patient: Chief Complaint: Shortness of Breath Referrals: Thong Rubalcava MD [Primary Care Provider] -
--- NOTE | 2018-02-27 23:49 | ED.DCSUM_ITS ---
- ER Visit Summary Date of Service: 02/27/18 Chief Complaint: Shortness of breath, generalized weakness and low blood pressure. History of Present Illness: The patient is a 72 M 3 of COPD on 5-6 L of oxygen at home. Also history of vki-dhfykjm-eswvkybbn diabetes, treated for hypertension, history of A. fib on Xarelto. Patient had multiple cancers including lung, renal with a renal resection and thyroid cancer. He has had shortness of breath the last 2 days. And just been generally weak. He denies fever. He denies vomiting. He denies diarrhea or melena. He denies chest pain. Physical Examination: Older male vital signs initial blood pressure 100/38. Pulse ox is 99 but that is on 6 L of O2. He does not look septic or toxic currently. He does not look significantly dehydrated. H EENT exam unremarkable other than poor dentition. Neck nontender no JVD. No lymphadenopathy. Lungs coarse breath sounds bilaterally. No rales or rhonchi. Few scattered wheezes. Heart regular rhythm rate about 70. Abdomen soft nontender. Normal bowel sounds no peritoneal signs. Moving all 4 extremities. 1+ pitting edema both lower extremities. Equal symmetrical. Calves nontender. He does have compression stockings on his lower extremities. Neurologically is awake and alert moving all 4 extremities. Back is nontender. Test Results: EKG shows a sinus rhythm rate of 73 with a first-degree AV block. Right bundle branch block. Appears very similar to a prior EKG from April 2017. Chest x-ray shows chronic changes consistent with COPD and a right upper lung mass which is chronic. CBC shows a white count of 10. A hemoglobin of 7.7 within the last week his hemoglobin was 12. This is consistent with acute blood loss. I did a rectal exam on the patient is black stool consistent with an upper GI bleed. He is on Xarelto. Electrolytes show a BUN of 60 a creatinine of 1.38 which is his baseline renal insufficiency. Urinalysis is pending he is not given his urine yet his troponin is slightly elevated 0.049. His lactate is 3.0. Emergency Department Course and Treatment: Patient be treated with a liter normal saline bolus. Aerosol treatments with DuoNeb and albuterol. IV Solu- Medrol. I believe the patient's shortness of breath is from anemia. I believe the anemia is from an upper GI bleed. He is being typed and crossed. For 4 units. He will be transfused 2 units. He will also be started on Protonix. I spoke to Dr. Thomas the night hospitalist will admit him in the ICU. Also spoke to the on-call surgeon who can be consulted in the morning for upper endoscopy. Treatment Plan: ICU admission. Transfusion. Treated for an upper GI bleed. Disposition: Admission Impression: Acute dyspnea Acute hypotension Acute GI bleed suspect upper Anemia Critical care time 30 minutes. This note was generated with [employer] dictation software. It may contain incorrect words, spelling, and punctuation that were not noted in review of the chart prior to signing ED Disposition - Plan for ED Patient: Chief Complaint: Shortness of Breath Referrals: Thong Rubalcava MD [Primary Care Provider] -
[2018-02-27] MEDS: 0.9% Normal Saline 1,000 ML 999 ML IV (23:51)
[2018-02-27] MEDS: MethylPREDNISolone 125 MG/2 ML Vial IV (23:51)
[2018-02-28] VITALS (49 sets, daily range): BP systolic 92–117; BP diastolic 44–88; PULSE 68–86; RESP 11–20; TEMP 36.4–36.9; O2SAT 89–100; BMI 29.0; BMI 29.1
[2018-02-28 00:08] LABS: Anion Gap 7 (5-15); BUN 60 mg/dL (7-18); BUN/Creat Ratio 43.5 RATIO (10-20); Calcium,Total 8.6 mg/dL (8.5-10.1); Chloride 100 mmol/L (98-107); Creatinine, Serum 1.38 mg/dL (0.70-1.30); EST Glomerular Filtration Rate 54 mL/min (>60); Est Glom Filt Rate - Afr Amer 65 mL/min (>60); Glucose 106 mg/dL (74-106); Potassium 3.2 mmol/L (3.5-5.1); Sodium Level 140 mmol/L (136-145)
[2018-02-28 00:10] LABS: Absolute Lymphocyte Count 1.27 X10^3/ul (0.83-4.51); Absolute Neutrophil Count 8.4 X10^3/uL (2.0-7.7); Basophil# 0.06 X10^3/uL; Basophil% 0.5 % (0-1); Eosinophil# 0.07 X10^3/uL; Eosinophils% 0.6 % (0-5); Hemoglobin 7.7 g/dl (13.0-16.5); Lymphocyte # 1.27 X10^3/ul (4.0); Lymphocyte % 11.6 % (19-41); Mean Corp Hgb Conc 30.8 g/gl (32-36); Mean Corpuscular Hgb 25.8 pg (27.0-32.0); Mean Corpuscular Volume 83.9 fL (80-94); Mean Platelet Vol. 9.6 fl (6.2-12.0); Monocyte# 1.07 X10^3/uL; Monocyte% 9.8 % (0-10); Neutrophil # 8.42 X10^3/uL (2.7-7.7); Neutrophil % 77.2 % (47-70); Platelet Count 283 K/mm3 (150-450); RBC Distribution Width SD 54.6 fl (35.1-43.9); Red Blood Count 2.98 M/mm3 (4.6-6.2); White Blood Count 10.9 K/mm3 (4.4-11.0)
[2018-02-28 00:11] LABS: POSITIVE COUNT NO; POSITIVE DIFFERENTIAL NO; POSITIVE MORPHOLOGY NO
--- NOTE | 2018-02-28 00:43 | ED.RN ---
DR CORNEJO MADE AWARE OF LACTIC ACID 3.0.
[2018-02-28 00:50] LABS: Bacteria 0 SEEN /hpf (None Seen); Color, Urine Yellow (Yellow); Glucose, Dipstick Normal (Normal); Ketone-Dipstick Negative (Negative); Leukocyte Esterase-Dipstick Negative /ul (Negative); Mucous, Urine 0 SEEN /hpf (<or=2+); Nitrite-Dipstick Negative (Negative); Occult Blood-Urine Negative /ul (Negative); Protein-Dipstick Negative (Negative); Red Blood Cells-Urine 0 SEEN /hpf (0-5); Urine Bilirubin Dipstick Negative (Negative); Urine Clarity Sl. Cloudy (Clear); Urine Urobilinogen 1 mg/dl (Normal); Urine pH 6.5 (5.0 - 8.0); White Blood Cells 0 SEEN /hpf (0-5)
[2018-02-28 00:58] LABS: Amorphous Sediment 1+ URATE; Squamous Epithelial Cells - UA 0-5 SEEN /hpf (0-5)
--- NOTE | 2018-02-28 01:36 | PCM.HP.STD ---
Problem List (1) GIB (gastrointestinal bleeding) Status: Acute (2) Pulmonary hypertension Status: Chronic (3) Paroxysmal atrial fibrillation Status: Chronic (4) Diabetes mellitus without complication Status: Chronic (5) Hypertension Status: Chronic Qualifiers: (6) Chronic respiratory failure Status: Chronic Qualifiers: (7) Renal cell carcinoma Status: Resolved Qualifiers: (8) COPD (chronic obstructive pulmonary disease) Status: Chronic History of Present Illness Date of Admission: 02/28/18 Chief Complaint: GIB The patient is a 72 year old male w/ h/o renal cell carcinoma status post nephrectomy, history of thyroid cancer status post thyroidectomy, chronic COPD requiring home oxygen of 5 L, and parosymal A. fib. on xarelto admitted for GIB. He has been SOB and usually on 5L of oxygen. However after radiation therapy, he has been weak and has been falling. Today, he whenever he stands up, he develops dizziness and had to sit back down. He fell today because his legs suddenly became weak. He also developed progressively worsening SOB. Nothing made it better or worse. His SOB is not associated with any other symptoms. No bright red blood per rectum. He did not notice any black tarry stool. Code status discussed and he wants to be full code. 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) Chronic respiratory failure (Chronic) COPD (chronic obstructive pulmonary disease) (Chronic) Chronic a-fib (Chronic) Medical History: Medical History (Last Reviewed 02/28/18 @ 01:55 by Johann Thomas MD) Ascites, malignant (Chronic) R18.0 Diabetes mellitus without complication (Chronic) E11.9 Hypertension (Chronic) I10 Peripheral vascular disease (Chronic) I73.9 Hypothyroidism (Chronic) E03.9 Supraventricular tachycardia (Chronic) I47.1 Typical atrial flutter (Chronic) I48.3 Other secondary pulmonary hypertension (Chronic) I27.29 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) I45.2 Chronic respiratory failure (Chronic) J96.10 Renal cell carcinoma (Resolved) C64.9 COPD (chronic obstructive pulmonary disease) (Chronic) J44.9 Pneumonia (Acute) J18.9 Chronic a-fib (Chronic) I48.2 Afib I48.91 Anxiety F41.9 Candidal stomatitis B37.0 Diabetes E11.9 Erectile dysfunction N52.9 Hearing deficit H91.90 History of kidney cancer Z85.528 Hypothyroidism E03.9 Hypoxemia R09.02 Lung cancer C34.90 RIGHT UPPER LOBE Nicotine dependence F17.200 PND (paroxysmal nocturnal dyspnea) R06.00 Pulmonary nodule R91.1 Renal disease N28.9 Thyroid cancer C73 Vascular disease I99.9 HTN (hypertension) I10 Allergies Penicillins Adverse Reaction (Verified 02/27/18 23:20) Rash cephalixin Allergy (Uncoded 02/27/18 23:20) gi upset Home Medications: Ambulatory Orders Medication Instructions Recorded Levothyroxine [Synthroid] 100 mcg PO DAILY 03/31/14 Metoprolol Succinate 50 mg PO DAILY 03/31/14 Tamsulosin HCl [Flomax] 0.4 mg PO DAILY 03/31/14 Potassium 99 mg PO DAILY 10/12/15 traMADol [Ultram] 50 mg PO Q6H PRN PRN 10/12/15 Albuterol IH (ProAir) [Proair Hfa] 1 - 2 puff INHALATION Q6H PRN PRN 05/06/17 Fluticasone/Vilanterol [Breo 1 puff INHALATION DAILY 05/06/17 Ellipta 200-25 Mcg INH] Naproxen Sodium [Aleve] 220 mg PO Q12H PRN PRN 10/26/17 cyclobenzaprine 10 mg tablet 10 mg PO TID PRN 11/20/17 rivaroxaban 15 mg tablet 15 mg PO QPM 11/20/17 Digoxin [Lanoxin] 250 mcg PO DAILY 12/11/17 Finasteride [Proscar] 5 mg PO DAILY 12/11/17 furosemide 40 mg tablet 40 mg PO QDAY #90 tab 01/28/18 Surgical History: Surgical History (Last Reviewed 02/28/18 @ 01:55 by Johann Thomas MD) History of appendectomy Z90.49 History of nephrectomy Z90.5 LEFT History of tonsillectomy Z90.89 Previous back surgery Z98.890 1982 Surgical History: - - Thyroidectomy, left nephrectomy, appendectomy, skin biopsy Psychiatric History: No pertinent psych hx Lives: Spouse/ Significant Other Smoking Status: Former smoker Alcohol: None Drugs: None - *Family History Paternal Family History: Family History (Last Reviewed 11/20/17 @ 10:33 by Shayla Vigil) Father Cancer History Items: Cancer - Lung cancer Maternal Family History: Family History (Last Reviewed 11/20/17 @ 10:33 by Shayla Vigil) Father Cancer History Items: Heart Disease Review of Systems Constitutional: Denies: Chills, Fever, Weight Change HEENT: Denies: Head Aches, Sinus Congestion, Sinus Drainage Cardiovascular: Denies: Chest Pain, Palpitations Respiratory: Reports: Shortness of Breath, Shortness of breath at rest. Denies: Cough, Sputum production Gastrointestinal: Denies: Abdominal Pain, Nausea, Vomiting Genitourinary: Denies: Dysuria Musculoskeletal: Reports: - - Generalized weakness. Denies: Joint Pain, Joint Tenderness Skin: Denies: Rash, Wounds Neurological: Denies: Numbness, Tingling, Focal weakness Psychiatric: Denies: Anxiety, Depression, Homicidal Ideations, Suicidal Ideations Hematologic/ Lymphatic: Reports: Anemia. Denies: Easy Bruising, Easy Bleeding VTE Information - Inpt Only VTE Present on Admission: No VTE Mechan Device Prophylaxis: SCD's VTE Pharm Prophylaxis ordered?: No Patient Problems: Active and Suspected Problems (Last Reviewed 02/28/18 @ 01:55 by Johann Thomas MD) GIB (gastrointestinal bleeding) (Acute) - Physical Exam General: Alert, Oriented x3, Cooperative HEENT: Atraumatic, PERRLA, EOMI, Normocephalic Neck: Supple, No JVD, Negative Carotid Bruits Lungs: Clear to auscultation, Normal air movement Cardiovascular: Irregular Rate, Murmur - II/ systolic murmur Abdomen: Bowel Sounds Present, Soft, Non Tender Extremities: Capillary Refill Less than 3 Seconds, Edema - 2+ edema Skin: No rashes, No breakdown Musculoskeletal: No Tenderness to Palpation of Joints or Extremities Neurological: Cranial nerves II-XII grossly intact Psych/Mental Status: Normal Affect, Appropriate Vital Signs Temp Pulse Resp BP Pulse Ox 97.8 F 76 18 115/88 H 98 02/27/18 23:17 02/28/18 00:12 02/28/18 00:12 02/28/18 00:12 02/28/18 00:12 Assessment/Plan All Active Problems (Last Reviewed 02/28/18 @ 01:55 by Johann Thomas MD) Peripheral vascular occlusive disease (Acute) Lymphedema (Acute) Peripheral arterial occlusive disease (Acute) GIB (gastrointestinal bleeding) (Acute) Renal cell carcinoma (Resolved) Pneumonia (Acute) Thyroid cancer (Resolved) 72 year old male w/ h/o renal cell carcinoma status post nephrectomy, history of thyroid cancer status post thyroidectomy, chronic COPD requiring home oxygen of 5 L, and parosymal A. fib. on xarelto admitted for GIB. 1) GIB: Probably secondary to xarelto. Will hold anticoagulation. Serial H and H. Consulted surgery for EGD / colonoscopy. S/p 2 unit PRBC. H and H 12.1 -> 7.7 Will start protonix 40mg IV Q12H. 2) SJ: Likely secondary to relative hypotension. Cr 1.27 -> 1.38 S/p 2 units PRBC. Hold lasix. Monitor. 3) Parosymal afib: EKG disclosed first degree AV block. Unchanged from old EKG. C/w betablocker and digoxin. Digoxin level pending. 4) Chronic hypoxic respiratory failure: H/o underlying COPD and lung mass. Resume home meds. C/w oxygen. 5) Code status: Lengthy discussion. Pt wants full code. C/w full code.
[2018-02-28 02:55] LABS: Hematocrit 21.5 % (40-54); Hemoglobin 6.7 g/dl (13.0-16.5)
[2018-02-28 03:50] LABS: Anion Gap 12 (5-15); BUN 52 mg/dL (7-18); BUN/Creat Ratio 50.5 RATIO (10-20); Calcium,Total 7.2 mg/dL (8.5-10.1); Chloride 109 mmol/L (98-107); Creatinine, Serum 1.03 mg/dL (0.70-1.30); Digoxin Level 0.95 ng/mL (0.80-2.00); EST Glomerular Filtration Rate 76 mL/min (>60); Est Glom Filt Rate - Afr Amer 91 mL/min (>60); Glucose 106 mg/dL (74-106); Potassium 3.1 mmol/L (3.5-5.1); Sodium Level 146 mmol/L (136-145)
[2018-02-28 04:11] LABS: M R Staph aureus DNA By PCR Negative (Negative); Probe Check PASS; Specimen Processing Control PASS
[2018-02-28 04:13] LABS: Reflex Lactate? Y
--- NOTE | 2018-02-28 06:20 | PCM.CON.CC ---
Reason for Consult Date of Consultation: 02/28/18 Reason for Consultation: Blood loss anemia History of Present Illness: The patient is a 72-year-old male, with a history as outlined below, who presented to the emergency department on February 27 with complaints of shortness of breath, generalized weakness and hypotension. The patient has a history of paroxysmal atrial fibrillation for which she is currently treated with Xarelto. His history is also significant for suspected thyroid cancer status post thyroidectomy in 2013, kidney cancer status post nephrectomy, basal cell carcinoma of the nose status post resection, non-small cell lung cancer involving the right lung apex status post SBRT which concluded in September 2017, COPD of unknown severity and chronic hypoxemic respiratory failure. He has a 5 L/min baseline supplemental oxygen requirement. The patient follows with Dr. Moy on an outpatient basis. He denies a history of recent NSAID utilization. He denies the presence of abdominal pain, nausea or vomiting. On presentation to the emergency department, the patient was noted to be afebrile and hemodynamically stable. He was maintaining appropriate oxygen saturations on his baseline 5 L/min. Laboratory evaluation revealed no evidence of a leukocytosis. The patient had a hemoglobin and hematocrit of 7.7 and 25, respectively. The patient's last hemoglobin in our system from August 2017 was noted to be 14 g/dL. Chemistry profile was notable for hypokalemia and acute kidney injury with a creatinine 1.38. Serum lactate was elevated at 3.0. Troponin was increased to 0.049. The patient was given supplemental IV fluid hydration and started on PPI therapy. General surgery was contacted. Patient underwent type and cross for 2 units of packed red blood cells. He was subsequently transferred to the medical intensive care unit for ongoing management. 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) Chronic respiratory failure (Chronic) COPD (chronic obstructive pulmonary disease) (Chronic) Chronic a-fib (Chronic) Medical History: Medical History (Last Reviewed 02/28/18 @ 01:55 by Johann Thomas MD) Ascites, malignant (Chronic) R18.0 Diabetes mellitus without complication (Chronic) E11.9 Hypertension (Chronic) I10 Peripheral vascular disease (Chronic) I73.9 Hypothyroidism (Chronic) E03.9 Supraventricular tachycardia (Chronic) I47.1 Typical atrial flutter (Chronic) I48.3 Other secondary pulmonary hypertension (Chronic) I27.29 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) I45.2 Chronic respiratory failure (Chronic) J96.10 Renal cell carcinoma (Resolved) C64.9 COPD (chronic obstructive pulmonary disease) (Chronic) J44.9 Pneumonia (Acute) J18.9 Chronic a-fib (Chronic) I48.2 Afib I48.91 Anxiety F41.9 Candidal stomatitis B37.0 Diabetes E11.9 Erectile dysfunction N52.9 Hearing deficit H91.90 History of kidney cancer Z85.528 Hypothyroidism E03.9 Hypoxemia R09.02 Lung cancer C34.90 RIGHT UPPER LOBE Nicotine dependence F17.200 PND (paroxysmal nocturnal dyspnea) R06.00 Pulmonary nodule R91.1 Renal disease N28.9 Thyroid cancer C73 Vascular disease I99.9 HTN (hypertension) I10 Allergies Penicillins Adverse Reaction (Verified 02/27/18 23:20) Rash cephalixin Allergy (Uncoded 02/27/18 23:20) gi upset Home Medications: Ambulatory Orders Medication Instructions Recorded Levothyroxine [Synthroid] 100 mcg PO DAILY 03/31/14 Metoprolol Succinate 50 mg PO DAILY 03/31/14 Tamsulosin HCl [Flomax] 0.4 mg PO DAILY 03/31/14 Potassium 99 mg PO DAILY 10/12/15 traMADol [Ultram] 50 mg PO Q6H PRN PRN 10/12/15 Albuterol IH (ProAir) [Proair Hfa] 1 - 2 puff INHALATION Q6H PRN PRN 05/06/17 Fluticasone/Vilanterol [Breo 1 puff INHALATION DAILY 05/06/17 Ellipta 200-25 Mcg INH] Naproxen Sodium [Aleve] 220 mg PO Q12H PRN PRN 10/26/17 cyclobenzaprine 10 mg tablet 10 mg PO TID PRN 11/20/17 rivaroxaban 15 mg tablet 15 mg PO QPM 11/20/17 Digoxin [Lanoxin] 250 mcg PO DAILY 12/11/17 Finasteride [Proscar] 5 mg PO DAILY 12/11/17 furosemide 40 mg tablet 40 mg PO QDAY #90 tab 01/28/18 Surgical History: Surgical History (Last Reviewed 02/28/18 @ 01:55 by Johann Thomas MD) History of appendectomy Z90.49 History of nephrectomy Z90.5 LEFT History of tonsillectomy Z90.89 Previous back surgery Z98.890 1982 Surgical History: - - Thyroidectomy, left nephrectomy, appendectomy, skin biopsy Psychiatric History: No pertinent psych hx Lives: Spouse/ Significant Other Smoking Status: Former smoker Alcohol: None Drugs: None - *Family History Paternal Family History: Family History (Last Reviewed 11/20/17 @ 10:33 by Shayla Vigil) Father Cancer History Items: Cancer - Lung cancer Maternal Family History: Family History (Last Reviewed 11/20/17 @ 10:33 by Shayla Vigil) Father Cancer History Items: Heart Disease Review of Systems Constitutional: Reports: Malaise, Weakness. Denies: Chills, Fever, Night Sweats Eyes: Denies: Blurred vision, Double vision HEENT: Denies: Dysphasia, Head Aches, Sinus Congestion, Sinus Drainage Cardiovascular: Denies: Chest Pain, Palpitations Respiratory: Reports: Shortness of Breath Gastrointestinal: Denies: Abdominal Pain, Nausea, Vomiting Genitourinary: Denies: Dysuria Musculoskeletal: Denies: Joint Pain, Joint Tenderness Skin: Denies: Rash, Wounds Neurological: Denies: Numbness, Tingling, Focal weakness Psychiatric: Denies: Anxiety, Depression, Homicidal Ideations, Suicidal Ideations Hematologic/ Lymphatic: Reports: Anemia Patient Problems: Active and Suspected Problems (Last Reviewed 02/28/18 @ 01:55 by Johann Thomas MD) GIB (gastrointestinal bleeding) (Acute) Objective: The patient's most recent lab work, culture data and imaging studies have all been personally reviewed. - Physical Exam General: Alert, Oriented x3, Cooperative, No apparent distress HEENT: Atraumatic, PERRLA, Normocephalic Oral: No Gingival or Mucosal Lesions/ Ulcerations Neck: Supple, No Nodes, Trachea Midline Lungs: No rhonchi, No wheeze, No rales, Diminished Cardiovascular: Normal S1, Normal S2, Irregular Rate, Murmur, No rub noted, No Gallop Abdomen: Bowel Sounds Present, Soft, Non Tender Extremities: No clubbing, No cyanosis, Edema Skin: - - Chronic lower extremity venous stasis dermatitis with lichenified skin Musculoskeletal: No Tenderness to Palpation of Joints or Extremities Lymphatic: No Cervical, Supraclavicular, or Inguinal Adenopathy Neurological: Neuro grossly intact Psych/Mental Status: Alert and oriented to time, place, person, mood and affect Vital Signs Temp Pulse Resp BP Pulse Ox 97.7 F L 76 12 100/48 L 93 02/28/18 05:46 02/28/18 05:46 02/28/18 05:46 02/28/18 05:46 02/28/18 05:46 Oxygen Flow Rate (L/min) 3.5 Oxygen Delivery Method Room Air Weight: 185 lb 10.067 oz Body Mass Index (BMI) 29.0 Intake and Output for Last 24 Hours 02/26/18 02/27/18 02/28/18 23:59 23:59 23:59 Intake Total 1458 / 1458 Output Total 50 / 50 Balance 1408 / 1408 Laboratory Tests Past 24 Hrs 02/28/18 02/28/18 02/28/18 02:30 02:30 02:30 Hgb 6.7 L Hct 21.5 L Sodium 146 H Potassium 3.1 L Chloride 109 H Carbon Dioxide 25.0 Anion Gap 12 BUN 52 H Creatinine 1.03 Estim Creat Clear Calc 61.50 Est GFR (MDRD) Af Amer 91 Est GFR (MDRD) Non-Af 76 BUN/Creatinine Ratio 50.5 H Glucose 106 Lactic Acid Calcium 7.2 L Troponin I Digoxin 0.95 MRSA (PCR) 02/28/18 02/28/18 02/28/18 02:40 05:25 05:25 Hgb Hct Sodium Potassium Chloride Carbon Dioxide Anion Gap BUN Creatinine Estim Creat Clear Calc Est GFR (MDRD) Af Amer Est GFR (MDRD) Non-Af BUN/Creatinine Ratio Glucose Lactic Acid Pending Calcium Troponin I Pending Digoxin MRSA (PCR) Negative 02/28/18 05:25 Hgb Hct Sodium Potassium Chloride Carbon Dioxide Anion Gap BUN Creatinine Estim Creat Clear Calc Est GFR (MDRD) Af Amer Est GFR (MDRD) Non-Af BUN/Creatinine Ratio Glucose Lactic Acid Calcium Troponin I Pending Digoxin MRSA (PCR) Clinical Impression(s) from Imaging Studies Chest X-Ray 02/27/18 23:29 IMPRESSION: No acute cardiopulmonary disease. Density right lung apex in part accounted for by a known right apical spiculated mass worrisome for malignancy and best seen on the recent CT scan. Stable small left pleural effusion. Electronically Signed: Ed Rinaldi MD at 0:20 EDT , Service support , Assessment/Plan Active and Suspected Problems (Last Reviewed 02/28/18 @ 01:55 by Johann Thomas MD) GIB (gastrointestinal bleeding) (Acute) RECOMMENDATIONS: 1. Continue to hold Xarelto. 2. Maintain appropriate large-bore peripheral IV access. 3. Continue twice daily PPI therapy 4. Check H&H posttransfusion. Goal to maintain his hemoglobin at or above 7 g/dL. 5. Continue scheduled bronchodilators. 6. Potassium repletion as ordered. IMPRESSIONS: 1. Acute blood loss anemia with concern for gastrointestinal blood loss in the setting of Xarelto utilization Although the patient denied the use of NSAIDs in his home environment, Naprosyn was listed on his home medication list. However, bedside upper endoscopy this morning revealed no evidence of acute upper gastrointestinal bleeding. The patient remains hemodynamically stable. We will continue twice daily PPI therapy. Continue to hold Xarelto accordingly. Surgery is following with tentative plans for possible lower endoscopy early next week. Check H&H posttransfusion. Goal to maintain a hemoglobin at or above 7 g/dL. 2. Personal history of COPD of unknown severity along with chronic hypoxemic respiratory failure Continue supplemental oxygen and wean as tolerated. Continue scheduled bronchodilators. Worsening in the patient's shortness of breath is likely the consequence of his underlying anemia and less likely the result of a COPD exacerbation. 3. History of thyroid cancer/kidney cancer/non-small cell carcinoma status post radiation treatment Continue outpatient follow-up with oncology as scheduled. 4. Paroxysmal atrial fibrillation, on Xarelto Continue beta-sawyer for rate control. Continue to hold Xarelto as noted above. 5. Acute kidney injury/hypokalemia Likely prerenal in etiology. The patient's creatinine has improved following volume expansion. We will continue to monitor. No indication for renal replacement therapy at this time. Electrolyte repletion is underway. 6. Troponin elevation Likely a type II demand ischemia in the setting of anemia. 7. BPH/hypothyroidism/peripheral vascular disease Complicates care, management, recovery and prognosis. Holding Synthroid pending outcome of upper endoscopy. This note was generated with [employer] dictation software. It may contain incorrect words, spelling, and punctuation that were not noted in checking the note before signing. Code Visit Inpatient E&M: 57924 Init Hosp L3
[2018-02-28] MEDS: Budesonide Respules 0.5 MG/2 ML AMPUL.NEB. INHALATION ×2 (07:18→18:43)
[2018-02-28] MEDS: Albuterol 2.5 MG/3 ML VIAL.NEB. INHALATION ×3 (07:18→18:43)
[2018-02-28] MEDS: Propofol 200 MG/20 ML Vial 60 MG IV BOLUS (09:01)
--- NOTE | 2018-02-28 09:12 | PCM.PN.HOSP ---
Patient Problems: Active and Suspected Problems (Last Reviewed 02/28/18 @ 01:55 by Johann Thomas MD) GIB (gastrointestinal bleeding) (Acute) Subjective: Patient notes less dizziness and dyspnea since initial presentation with endoscopy upper this morning with no acute findings. Discussed with surgery and patient and plan for allowance of clears today with transition to bowel prep the following day and endoscopy lower on Thursday secondary to recent anticoagulation for his paroxysmal atrial fibrillation. Patient denies any further tarry black stools since admission. Patient denies fevers, chills, nausea, emesis, abdominal pain, chest pain. Objective: Physical Examination: General: awake, alert, oriented x 3 and cooperative, seated upright in bed in no apparent distress. Skin: normal color, turgor, no icterus, cyanosis with chronic venous stasis changes bilateral lower extremity, very staged ecchymoses. HEENT: AT/NC, EOMI, PERRLA, moderately dry MM. Lungs: Diminished breath sounds bilaterally, greater bases, moderate effort, no wheezing, rales or rhonchi noted. Heart: Irregular; no gallop, rub audible, SM. Abdomen: soft, NTTP, ND, hyperactive BS. Extremities: no cyanosis, clubbing, BL LE chronic venous skin changes, dermatitis. Neurological: patient awake, alert, oriented x 3; cognitive function intact; pupils equally reactive to light and accomodation; cranial nerves II-XII grossly normal, moving all 4 extremities, no focal deficits, strength severely globally decreased secondary to acute presentation. Psychiatric: affect appears fatigued, no acute evidence of depressive or anxiety feelings. Vitals/I&O's: Vital Signs Temp Pulse Resp BP Pulse Ox 97.7 F L 85 18 100/50 L 95 02/28/18 06:00 02/28/18 07:57 02/28/18 07:20 02/28/18 06:00 02/28/18 07:20 Oxygen Flow Rate (L/min) 4 Oxygen Delivery Method Nasal Cannula Weight: 185 lb 10.067 oz Body Mass Index (BMI) 29.0 Intake and Output for Last 24 Hours 02/26/18 02/27/18 02/28/18 23:59 23:59 23:59 Intake Total 1458 / 1458 Output Total 50 / 50 Balance 1408 / 1408 Laboratory Results 02/28/18 02:30: Digoxin 0.95 02/28/18 02:30: Hgb 6.7 L, Hct 21.5 L 02/28/18 02:30: Sodium 146 H, Potassium 3.1 L, Chloride 109 H, Carbon Dioxide 25.0, Anion Gap 12, BUN 52 H, Creatinine 1.03, Estim Creat Clear Calc 61.50, Est GFR (MDRD) Af Amer 91, Est GFR (MDRD) Non-Af 76, BUN/Creatinine Ratio 50.5 H, Glucose 106, Calcium 7.2 L 02/28/18 02:30: Troponin I 0.047 H 02/28/18 02:40: MRSA (PCR) Negative 02/28/18 05:25: Lactic Acid 2.0 02/28/18 05:25: Troponin I 0.048 H Current Medications Albuterol Sulfate (Ventolin Aerosols) 2.5 mg INHALATION Q6HWA.RT [facility] Last Admin: 02/28/18 07:18 Dose: 2.5 mg Budesonide (Pulmicort Aerosol) 0.5 mg INHALATION Q12H.RT [facility] Last Admin: 02/28/18 07:18 Dose: 0.5 mg Cyclobenzaprine HCl (Flexeril) 10 mg PO TID PRN PRN PRN Reason: MUSCLE SPASM Digoxin (Lanoxin) 250 mcg PO DAILY [facility] Finasteride (Proscar) 5 mg PO DAILY [facility] Pantoprazole Sodium 40 mg/ (Sodium Chloride) 110 mls @ 330 mls/hr IV Q12 [facility] Last Admin: 02/28/18 09:03 Dose: 330 mls/hr Sodium Chloride () 250 mls @ 15 mls/hr IV .[id number] PRN PRN Reason: SALINE FLUSH Sodium Chloride () 250 mls @ 15 mls/hr IV .[id number] PRN PRN Reason: SALINE FLUSH Potassium Chloride (Kcl 10meq/100ml) 10 meq in 100 mls @ 100 mls/hr IV BOLUS Q1H [facility] Stop: 02/28/18 11:59 Last Admin: 02/28/18 08:11 Dose: 100 mls/hr Levothyroxine Sodium (Synthroid) 100 mcg PO DAILY@0600 [facility] Last Admin: 02/28/18 06:29 Dose: Not Given Magnesium Hydroxide (Milk Of Magnesia) 30 ml PO DAILY PRN PRN PRN Reason: Constipation Metoprolol Succinate (Toprol Xl (Beta Deborah)) 50 mg PO DAILY [facility] Sodium Chloride () 5 - 30 ml IV UD PRN PRN Reason: SALINE FLUSH Sodium Chloride/Electrolytes (Nulytely) 2,000 ml PO 0600,1800 [facility] Stop: 03/01/18 18:01 Tamsulosin HCl (Flomax) 0.4 mg PO DAILY [facility] Tramadol HCl (Ultram) 50 mg PO Q6H PRN PRN PRN Reason: PAIN Medical Necessity - Tobacco Use Smoking Status: Former smoker Assessment/Plan All Active Problems (Last Reviewed 02/28/18 @ 01:55 by Johann Thomas MD) Peripheral vascular occlusive disease (Acute) Lymphedema (Acute) Peripheral arterial occlusive disease (Acute) GIB (gastrointestinal bleeding) (Acute) Renal cell carcinoma (Resolved) Pneumonia (Acute) Thyroid cancer (Resolved) The patient is a 72 y/o M w/ PMHx: PVD following w/ [facility] for BL LE chronic lymphedema, venous stasis dermatitis and stasis ulcers, Chronic Atrial Fibrillation on anticoagulation, HTN, HLD, Hx Thyroid CA s/p resection w/ Hypothyroidism, Peripheral Arterial Occlusive Disease, Chronic COPD w/ Chronic Hypoxic Respiratory Failure (5L NC), Diabetes mellitus type II, Hx Renal Cell Carcinoma s/p nephrectomy following w/ Nephrology who presents to the [facility] ED on 02/28/18 with history of progressively worsening weakness, fatigue, dizziness, increased falls and worsened dyspnea following his most recent radiation therapy in addition to onset black tarry appearing stools. (1) Acute GI Bleed w/ resultant Acute Blood Loss Anemia and Hypotension on Chronic Normocytic Anemia on Chronic Anticoagulation Therapy: Patient w/ reported black tarry stools on anticoagulation, admission Hgb 7.7-->6.7, 2/4 u PRBC being currently administered, VS improved, maintained in the ICU, upper endoscopy per Dr. iHguera, Surgery performed with no marked findings. Will maintain on IV PPI, IVFs, trend serial HH, clears allowance with plan for mag citrate administration today, initiation bowel prep tomorrow and planned colonoscopy 03/02/18 secondary to recent anticoagulation therapy. CT A/P ordered per Surgery and pending w/ PO and IV contrast. 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 Will maintain on a monitored bed to assure no acute myocardial infarction with serial cardiac enzymes and EKGs. ECHO requested as no recent. Mag pending. No ASA/anticoagulation secondary to acute presentation with GI bleed, NG, morphine. (3) Hypokalemia: Admission K+ 3.1, supplementation given, repeat level in AM. (4) CKD stage III, LAB VALUES not consistent w/ SJ: s/p Nephrectomy secondary to Renal Cell Carcinoma, admission BUN/Cr 60/1.38, repeat following PRBC and hydration BUN/Cr 52/1.03, baseline 1.1-1.2, trend. Elevated BUN secondary to GI bleed most likely. (5) Chronic Atrial Fibrillation: Holding coagulation secondary to acute presentation, #1, maintain on digoxin with level appropriate, metoprolol w/ hold parameters. (6) Chronic COPD: Will maintain on home oxygen supplementation, continue ATC duonebs, PRN albuterol, HOB, IS parameters. (7) History of Thyroid Cancer, History Renal Cell Carcinoma, Non-Small Cell Carcinoma: s/p thyroidectomy, continued on synthroid supplementation, renal function baseline from comparison as noted, on radiation treatments. Continue to follow with oncology outpatient. Mag and Phos repletion as needed. (8) Chronic PVD, Venous Stasis Dermatitis: SCDs, FELIZ as needed, elevation, following w/ [facility]. (9) BPH: Maintain on home flomax regimen. (10) DVT Prophylaxis: FELIZ, SCDs, holding chemoprophylaxis as noted. (11) CODE status: Patient does not having a living will or HCPOA. Encouraged patient to consider setting these items up with his family. Discussed CODE status at length including difference between FULL code, DNR-CCA and DNR-CC status. Following discussions about the differences in these status, requested Full Code status despite severity of his co-morbidities. Advanced Care Planning Face to Face Time: 18 minutes. Patient Prolonged Care Time: Patient evaluation and discussions before and after EGD in addition to noted ACP required 50 minutes beyond initial 70 minute daily assessment beyond also the day of admission history and physical examination. Code Visit Procedures: Other Procedure - See Report - Hospitalist Billin (18 minutes) and [id number] (50 minutes)
--- NOTE | 2018-02-28 09:15 | CON.PCM_ITS ---
Problem List (1) GIB (gastrointestinal bleeding) Status: Acute Qualifiers: GI bleed type/associated pathology: unspecified gastrointestinal hemorrhage type Qualified Code(s): K92.2 - Gastrointestinal hemorrhage, unspecified Reason for Consult Date of Consultation: 02/28/18 Reason for Consultation: GI bleed History of Present Illness: The patient is a 72 year old M who is having weakness. He presented to the emergency room was found to have anemia. The patient reports he has been having black stools for a few weeks. He is having no abdominal pain at this time. He has no nausea or vomiting. He reports he has never had an EGD or colonoscopy. 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) Chronic respiratory failure (Chronic) COPD (chronic obstructive pulmonary disease) (Chronic) Chronic a-fib (Chronic) Medical History: Medical History (Last Reviewed 02/28/18 @ 01:55 by Johann Thomas MD) Ascites, malignant (Chronic) R18.0 Diabetes mellitus without complication (Chronic) E11.9 Hypertension (Chronic) I10 Peripheral vascular disease (Chronic) I73.9 Hypothyroidism (Chronic) E03.9 Supraventricular tachycardia (Chronic) I47.1 Typical atrial flutter (Chronic) I48.3 Other secondary pulmonary hypertension (Chronic) I27.29 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) I45.2 Chronic respiratory failure (Chronic) J96.10 Renal cell carcinoma (Resolved) C64.9 COPD (chronic obstructive pulmonary disease) (Chronic) J44.9 Pneumonia (Acute) J18.9 Chronic a-fib (Chronic) I48.2 Afib I48.91 Anxiety F41.9 Candidal stomatitis B37.0 Diabetes E11.9 Erectile dysfunction N52.9 Hearing deficit H91.90 History of kidney cancer Z85.528 Hypothyroidism E03.9 Hypoxemia R09.02 Lung cancer C34.90 RIGHT UPPER LOBE Nicotine dependence F17.200 PND (paroxysmal nocturnal dyspnea) R06.00 Pulmonary nodule R91.1 Renal disease N28.9 Thyroid cancer C73 Vascular disease I99.9 HTN (hypertension) I10 Allergies Penicillins Adverse Reaction (Verified 02/27/18 23:20) Rash cephalixin Allergy (Uncoded 02/27/18 23:20) gi upset Home Medications: Ambulatory Orders Medication Instructions Recorded Levothyroxine [Synthroid] 100 mcg PO DAILY 03/31/14 Metoprolol Succinate 50 mg PO DAILY 03/31/14 Tamsulosin HCl [Flomax] 0.4 mg PO DAILY 03/31/14 Potassium 99 mg PO DAILY 10/12/15 traMADol [Ultram] 50 mg PO Q6H PRN PRN 10/12/15 Albuterol IH (ProAir) [Proair Hfa] 1 - 2 puff INHALATION Q6H PRN PRN 05/06/17 Fluticasone/Vilanterol [Breo 1 puff INHALATION DAILY 05/06/17 Ellipta 200-25 Mcg INH] Naproxen Sodium [Aleve] 220 mg PO Q12H PRN PRN 10/26/17 cyclobenzaprine 10 mg tablet 10 mg PO TID PRN 11/20/17 rivaroxaban 15 mg tablet 15 mg PO QPM 11/20/17 Digoxin [Lanoxin] 250 mcg PO DAILY 12/11/17 Finasteride [Proscar] 5 mg PO DAILY 12/11/17 furosemide 40 mg tablet 40 mg PO QDAY #90 tab 01/28/18 Surgical History: Surgical History (Last Reviewed 02/28/18 @ 01:55 by Johann Thomas MD) History of appendectomy Z90.49 History of nephrectomy Z90.5 LEFT History of tonsillectomy Z90.89 Previous back surgery Z98.890 1981 Surgical History: - - Thyroidectomy, left nephrectomy, appendectomy, skin biopsy Psychiatric History: No pertinent psych hx Lives: Spouse/ Significant Other Smoking Status: Former smoker Alcohol: None Drugs: None - *Family History Paternal Family History: Family History (Last Reviewed 11/20/17 @ 10:33 by Shayla Vigil) Father Cancer History Items: Cancer - Lung cancer Maternal Family History: Family History (Last Reviewed 11/20/17 @ 10:33 by Shayla Vigil) Father Cancer History Items: Heart Disease Review of Systems Constitutional: Denies: Anorexia, Fever HEENT: Denies: Difficulty Swallowing Cardiovascular: Denies: Chest Pain Respiratory: Denies: Cough Gastrointestinal: Reports: Constipation, Melena. Denies: Abdominal Pain, Hematemesis, Hematochezia, Nausea, Vomiting Genitourinary: Denies: Dysuria Skin: Denies: Jaundice Neurological: Reports: Balance problems Psychiatric: Denies: Anxiety, Depression Hematologic/ Lymphatic: Reports: Anemia Patient Problems: Active and Suspected Problems (Last Reviewed 02/28/18 @ 01:55 by Johann Thomas MD) GIB (gastrointestinal bleeding) (Acute) - Physical Exam General: Alert, Oriented x3, Cooperative HEENT: PERRLA, EOMI Neck: Supple Lungs: Normal air movement Cardiovascular: Regular rate, Regular Rhythm Abdomen: Soft, Non Tender, Non-Distended Extremities: No clubbing Skin: No rashes Musculoskeletal: No Muscle Wasting Lymphatic: No Cervical, Supraclavicular, or Inguinal Adenopathy Neurological: Cranial nerves II-XII grossly intact Psych/Mental Status: Normal Affect Vital Signs Temp Pulse Resp BP Pulse Ox 97.7 F L 85 18 100/50 L 95 02/28/18 06:00 02/28/18 07:57 02/28/18 07:20 02/28/18 06:00 02/28/18 07:20 Oxygen Flow Rate (L/min) 4 Oxygen Delivery Method Nasal Cannula Weight: 185 lb 10.067 oz Body Mass Index (BMI) 29.0 Intake and Output for Last 24 Hours 02/26/18 02/27/18 02/28/18 23:59 23:59 23:59 Intake Total 1458 / 1458 Output Total 50 / 50 Balance 1408 / 1408 Laboratory Tests Past 24 Hrs 02/28/18 02/28/18 02/28/18 02:30 02:30 02:30 Hgb 6.7 L Hct 21.5 L Sodium 146 H Potassium 3.1 L Chloride 109 H Carbon Dioxide 25.0 Anion Gap 12 BUN 52 H Creatinine 1.03 Estim Creat Clear Calc 61.50 Est GFR (MDRD) Af Amer 91 Est GFR (MDRD) Non-Af 76 BUN/Creatinine Ratio 50.5 H Glucose 106 Lactic Acid Calcium 7.2 L Troponin I Digoxin 0.95 MRSA (PCR) 02/28/18 02/28/18 02/28/18 02:30 02:40 05:25 Hgb Hct Sodium Potassium Chloride Carbon Dioxide Anion Gap BUN Creatinine Estim Creat Clear Calc Est GFR (MDRD) Af Amer Est GFR (MDRD) Non-Af BUN/Creatinine Ratio Glucose Lactic Acid 2.0 Calcium Troponin I 0.047 H Digoxin MRSA (PCR) Negative 02/28/18 05:25 Hgb Hct Sodium Potassium Chloride Carbon Dioxide Anion Gap BUN Creatinine Estim Creat Clear Calc Est GFR (MDRD) Af Amer Est GFR (MDRD) Non-Af BUN/Creatinine Ratio Glucose Lactic Acid Calcium Troponin I 0.048 H Digoxin MRSA (PCR) Clinical Impression(s) from Imaging Studies Chest X-Ray 02/27/18 23:29 IMPRESSION: No acute cardiopulmonary disease. Density right lung apex in part accounted for by a known right apical spiculated mass worrisome for malignancy and best seen on the recent CT scan. Stable small left pleural effusion. Electronically Signed: Ed Rinaldi MD at 0:20 EDT , Service support , Assessment/Plan All Active Problems (Last Reviewed 02/28/18 @ 01:55 by Johann Thomas MD) Peripheral vascular occlusive disease (Acute) Lymphedema (Acute) Peripheral arterial occlusive disease (Acute) GIB (gastrointestinal bleeding) (Acute) Renal cell carcinoma (Resolved) Pneumonia (Acute) Thyroid cancer (Resolved) 72-year-old male with GI bleed 1. Patient is here with anemia and hypotension. He has been having black stools. He is also on Xarelto. He has never had an upper or lower scope. He does not complain of any abdominal pain or nausea or vomiting. There is concern for upper GI bleeding. I would recommend EGD and if that is negative proceeding with colonoscopy. 2. Transfuse as needed. Hold blood thinners. I will also order an abdominal CT scan to check for any other source of bleeding. Tom Higuera MD Pager: [facility] [address] [place] [address], [address] [place] [address] Office:
--- NOTE | 2018-02-28 09:15 | PCM.OPRPT ---
Problem List (1) GIB (gastrointestinal bleeding) Status: Acute Qualifiers: GI bleed type/associated pathology: unspecified gastrointestinal hemorrhage type Qualified Code(s): K92.2 - Gastrointestinal hemorrhage, unspecified Report of Operation Date of Procedure: 02/28/18 Pre-Operative Diagnosis: GI bleeding Post-Operative Diagnosis: Normal EGD Surgery/Procedure Performed:: EGD Description of Surgical Findings:: Patient had no signs of active or past bleeding. I would recommend that the patient have his anticoagulants held and I will perform a colonoscopy Thursday or Thursday of this week once the Xarelto is out of his system. Description of Procedure: After obtaining consent the patient was placed in a left lateral decubitus position in the ICU and moderate sedation was achieved by planograph operator. Once the patient was asleep the scope was advanced into the mouth and down into the esophagus and stomach and duodenum. There was no sign of blood in the esophagus stomach or duodenum. there were no blood clots or stigmata of recent bleeding. There were no ulcerations in the duodenum or pylorus. The stomach appeared normal with no ulceration or irritation. Retroflex views of the stomach were normal with no hiatal hernia or irritation. The GE junction was normal with no masses or bleeding. The scope was withdrawn into the esophagus the esophagus appeared normal as well. The scope was removed from the patient and the patient tolerated the procedure well.
[2018-02-28 09:26] LABS: Bedside Glucose 151 mg/dL (70-110)
[2018-02-28 09:36] LABS: Hematocrit 28.2 % (40-54); Hemoglobin 9.3 g/dl (13.0-16.5)
[2018-02-28 10:07] LABS: Magnesium 2.1 mg/dL (1.6-2.6)
[2018-02-28] MEDS: Magnesium Citrate 300 ML PO (10:09)
[2018-02-28] MEDS: Metoprolol(XL)Succ 50 MG Tablet PO (10:10)
[2018-02-28] MEDS: Tamsulosin HCl 0.4 MG Capsule PO (10:10)
[2018-02-28] MEDS: Digoxin 250 MCG Tablet PO (10:10)
[2018-02-28] MEDS: Finasteride 5 MG Tablet PO (10:10)
[2018-02-28] MEDS: Levothyroxine 100 MCG Tablet PO (10:11)
[2018-02-28 10:12] LABS: Phosphorus 3.3 mg/dL (2.5-4.9)
[2018-02-28 11:30] LABS: Bedside Glucose 149 mg/dL (70-110)
--- NOTE | 2018-02-28 13:30 | CM.UR ---
Met face to face with patient, his and multiple other family members. State he [facility]. Explained the process and that he will need to make a trip to [place]. They were agreeable to that. States he is going to need a w/c or scooter in the future. Instructed him on the [facility] processes for that. Left a vm for his pediatric care coordinator at the [facility] clinic. Explained that case management will continue to follow him should any additional needs arise. Verb understanding. Julien Minor RN, CCM.
[2018-02-28 14:29] LABS: Hematocrit 27.6 % (40-54); Hemoglobin 8.9 g/dl (13.0-16.5)
[2018-02-28 17:40] LABS: Bedside Glucose 138 mg/dL (70-110)
[2018-02-28] MEDS: 0.9% NaCl Peripheral Flush Adult/Peds IV ×2 (21:04→21:05)
[2018-02-28 21:45] LABS: Bedside Glucose 120 mg/dL (70-110)
[2018-02-28 21:48] LABS: Hematocrit 28.1 % (40-54); Hemoglobin 9.1 g/dl (13.0-16.5)
[2018-03-01] VITALS (27 sets, daily range): BP systolic 89–118; BP diastolic 48–85; PULSE 55–88; RESP 12–20; TEMP 36.3–36.7; O2SAT 95–100
[2018-03-01] MEDS: 0.9% NaCl Peripheral Flush Adult/Peds IV ×3 (00:15→21:04)
[2018-03-01 04:25] LABS: Absolute Lymphocyte Count 0.97 X10^3/ul (0.83-4.51); Absolute Neutrophil Count 8.1 X10^3/uL (2.0-7.7); Basophil# 0.01 X10^3/uL; Basophil% 0.1 % (0-1); Eosinophil# 0.01 X10^3/uL; Eosinophils% 0.1 % (0-5); Hemoglobin 8.6 g/dl (13.0-16.5); Lymphocyte # 0.97 X10^3/ul (4.0); Lymphocyte % 9.8 % (19-41); Mean Corp Hgb Conc 31.9 g/gl (32-36); Mean Corpuscular Volume 84.6 fL (80-94); Mean Platelet Vol. 9.4 fl (6.2-12.0); Monocyte# 0.82 X10^3/uL; Monocyte% 8.3 % (0-10); Neutrophil # 8.08 X10^3/uL (2.7-7.7); Neutrophil % 81.6 % (47-70); Platelet Count 211 K/mm3 (150-450); RBC Distribution Width CV 17.4 % (11.6-14.6); RBC Distribution Width SD 53.4 fl (35.1-43.9); Red Blood Count 3.19 M/mm3 (4.6-6.2); White Blood Count 9.9 K/mm3 (4.4-11.0)
[2018-03-01 04:32] LABS: Anion Gap 6 (5-15); BUN 34 mg/dL (7-18); BUN/Creat Ratio 33.3 RATIO (10-20); Calcium,Total 8.2 mg/dL (8.5-10.1); Chloride 106 mmol/L (98-107); Creatinine, Serum 1.02 mg/dL (0.70-1.30); EST Glomerular Filtration Rate 76 mL/min (>60); Est Glom Filt Rate - Afr Amer 92 mL/min (>60); Glucose 111 mg/dL (74-106); Potassium 3.5 mmol/L (3.5-5.1); Sodium Level 143 mmol/L (136-145)
[2018-03-01 04:54] LABS: POSITIVE COUNT NO; POSITIVE DIFFERENTIAL NO; POSITIVE MORPHOLOGY NO
[2018-03-01] MEDS: Electrolyte Solution/Peg's 4000 ML 2000 ML PO ×2 (06:18→14:55)
[2018-03-01] MEDS: Levothyroxine 100 MCG Tablet PO (06:18)
--- NOTE | 2018-03-01 06:30 | PCM.PN.INT ---
Subjective: Patient did well overnight. Patient has received a total of 2 units of packed red blood cells since admission. Patient reports good response to bowel prep thus far. Patient remains on 4 L nasal cannula and denies any orthostatic type symptoms. Patient states I am starting to feel stronger. General: Alert, Oriented x3, Cooperative, No apparent distress, - - Speaks in full sentences. HEENT: Atraumatic, PERRLA, EOMI, Normocephalic, - - No scleral icterus or injection noted. Oral: Moist Mucosa, No Gingival or Mucosal Lesions/ Ulcerations, - - Fair dentition. Neck: Supple, No JVD, No Nodes Lungs: No rhonchi, No wheeze, No rales, Diminished Cardiovascular: Normal S1, Normal S2, No murmurs, Irregular Rate, No rub noted, No Gallop Abdomen: Bowel Sounds Present, Soft, Non Tender, Non-Distended Extremities: No cyanosis, Clubbing, Edema Skin: - - Chronic venous stasis changes of the lower extremities. Musculoskeletal: No Tenderness to Palpation of Joints or Extremities Lymphatic: No Cervical, Supraclavicular, or Inguinal Adenopathy Neurological: Cranial nerves II-XII grossly intact, Neuro grossly intact, Motor Exam 5/5 strength throughout Psych/Mental Status: Alert and oriented to time, place, person, mood and affect Vital Signs Temp Pulse Resp BP Pulse Ox 36.3 C L 61 12 106/63 98 03/01/18 04:00 03/01/18 05:00 03/01/18 05:00 03/01/18 05:00 03/01/18 05:00 Oxygen Flow Rate (L/min) 4 Oxygen Delivery Method Nasal Cannula Weight: 83.8 kg Body Mass Index (BMI) 29.0 Intake and Output for Last 24 Hours 02/27/18 02/28/18 03/01/18 23:59 23:59 23:59 Intake Total 4000 / 4000 240 / 240 Output Total 600 / 600 Balance 3400 / 3400 240 / 240 Labs (Last 48 Hours) 02/28/18 02/28/18 02/28/18 02:30 02:30 02:30 WBC RBC Hgb 6.7 L Hct 21.5 L MCV MCH MCHC RDW RDW Differential Plt Count MPV Immature Gran % (Auto) Neut % (Auto) Lymph % (Auto) [place] % (Auto) Eos % (Auto) Baso % (Auto) Absolute Neuts (auto) Absolute Lymphs (auto) Total Counted Sodium 146 H Potassium 3.1 L Chloride 109 H Carbon Dioxide 25.0 Anion Gap 12 BUN 52 H Creatinine 1.03 Estim Creat Clear Calc 61.50 Est GFR (MDRD) Af Amer 91 Est GFR (MDRD) Non-Af 76 BUN/Creatinine Ratio 50.5 H Glucose 106 Lactic Acid Calcium 7.2 L Phosphorus Magnesium Troponin I Digoxin 0.95 MRSA (PCR) POC Glucose 02/28/18 02/28/18 02/28/18 02:30 02:40 05:25 WBC RBC Hgb Hct MCV MCH MCHC RDW RDW Differential Plt Count MPV Immature Gran % (Auto) Neut % (Auto) Lymph % (Auto) [place] % (Auto) Eos % (Auto) Baso % (Auto) Absolute Neuts (auto) Absolute Lymphs (auto) Total Counted Sodium Potassium Chloride Carbon Dioxide Anion Gap BUN Creatinine Estim Creat Clear Calc Est GFR (MDRD) Af Amer Est GFR (MDRD) Non-Af BUN/Creatinine Ratio Glucose Lactic Acid 2.0 Calcium Phosphorus Magnesium Troponin I 0.047 H Digoxin MRSA (PCR) Negative POC Glucose 02/28/18 02/28/18 02/28/18 05:25 05:25 05:25 WBC RBC Hgb Hct MCV MCH MCHC RDW RDW Differential Plt Count MPV Immature Gran % (Auto) Neut % (Auto) Lymph % (Auto) [place] % (Auto) Eos % (Auto) Baso % (Auto) Absolute Neuts (auto) Absolute Lymphs (auto) Total Counted Sodium Potassium Chloride Carbon Dioxide Anion Gap BUN Creatinine Estim Creat Clear Calc Est GFR (MDRD) Af Amer Est GFR (MDRD) Non-Af BUN/Creatinine Ratio Glucose Lactic Acid Calcium Phosphorus 3.3 Magnesium 2.1 Troponin I 0.048 H Digoxin MRSA (PCR) POC Glucose 02/28/18 02/28/18 02/28/18 09:21 09:25 11:26 WBC RBC Hgb 9.3 L Hct 28.2 L MCV MCH MCHC RDW RDW Differential Plt Count MPV Immature Gran % (Auto) Neut % (Auto) Lymph % (Auto) [place] % (Auto) Eos % (Auto) Baso % (Auto) Absolute Neuts (auto) Absolute Lymphs (auto) Total Counted Sodium Potassium Chloride Carbon Dioxide Anion Gap BUN Creatinine Estim Creat Clear Calc Est GFR (MDRD) Af Amer Est GFR (MDRD) Non-Af BUN/Creatinine Ratio Glucose Lactic Acid Calcium Phosphorus Magnesium Troponin I Digoxin MRSA (PCR) POC Glucose 151 H 149 H 02/28/18 02/28/18 02/28/18 14:25 17:37 21:07 WBC RBC Hgb 8.9 L 9.1 L Hct 27.6 L 28.1 L MCV MCH MCHC RDW RDW Differential Plt Count MPV Immature Gran % (Auto) Neut % (Auto) Lymph % (Auto) [place] % (Auto) Eos % (Auto) Baso % (Auto) Absolute Neuts (auto) Absolute Lymphs (auto) Total Counted Sodium Potassium Chloride Carbon Dioxide Anion Gap BUN Creatinine Estim Creat Clear Calc Est GFR (MDRD) Af Amer Est GFR (MDRD) Non-Af BUN/Creatinine Ratio Glucose Lactic Acid Calcium Phosphorus Magnesium Troponin I Digoxin MRSA (PCR) POC Glucose 138 H 02/28/18 03/01/18 03/01/18 21:39 04:10 04:10 WBC 9.9 RBC 3.19 L Hgb 8.6 L Hct 27.0 L MCV 84.6 MCH 27.0 MCHC 31.9 L RDW 17.4 H RDW Differential 53.4 H Plt Count 211 MPV 9.4 Immature Gran % (Auto) 0.100 Neut % (Auto) 81.6 H Lymph % (Auto) 9.8 L [place] % (Auto) 8.3 Eos % (Auto) 0.1 Baso % (Auto) 0.1 Absolute Neuts (auto) 8.1 H Absolute Lymphs (auto) 0.97 Total Counted Not Reportable Sodium 143 Potassium 3.5 Chloride 106 Carbon Dioxide 31.0 Anion Gap 6 BUN 34 H Creatinine 1.02 Estim Creat Clear Calc 62.10 Est GFR (MDRD) Af Amer 92 Est GFR (MDRD) Non-Af 76 BUN/Creatinine Ratio 33.3 H Glucose 111 H Lactic Acid Calcium 8.2 L Phosphorus Magnesium Troponin I Digoxin MRSA (PCR) POC Glucose 120 H Clinical Impression(s) from Imaging Studies Abdomen/Pelvis CT 02/28/18 09:12 IMPRESSION: There are fewer gallstones with a few tiny stones. There is very distended bladder. Other stable findings. Electronically Signed: Kayleen Marquez MD at 12:26 EDT , Service support , Medical Necessity - Tobacco Use Smoking Status: Former smoker Assessment/Plan All Active Problems (Last Reviewed 02/28/18 @ 01:55 by Johann Thomas MD) Peripheral vascular occlusive disease (Acute) Lymphedema (Acute) Peripheral arterial occlusive disease (Acute) GIB (gastrointestinal bleeding) (Acute) Renal cell carcinoma (Resolved) Pneumonia (Acute) Thyroid cancer (Resolved) RECOMMENDATIONS: 1. Continue to hold Xarelto. 2. Maintain appropriate large-bore peripheral IV access. 3. Consider transition to p.o. PPI therapy following colonoscopy 4. Likely okay to space out H&H. Goal to maintain his hemoglobin at or above 7 g/dL. 5. Continue scheduled bronchodilators. 6. Okay to leave the intensive care unit from my perspective IMPRESSIONS: 1. Acute blood loss anemia with concern for gastrointestinal blood loss in the setting of Xarelto utilization Upper endoscopy showed no acute evidence of GI bleed. Patient is currently being prepped for colonoscopy and appears to be tolerating this well. No obvious bleeding clinically and H&H has remained stable. Okay to leave the intensive care unit from my perspective. 2. Personal history of COPD of unknown severity along with chronic hypoxemic respiratory failure Continue supplemental oxygen and wean as tolerated. Continue scheduled bronchodilators. Patient's respiratory status appears to be stabilizing with H&H. Continue supplemental oxygen to keep saturations 88-92%. 3. History of thyroid cancer/kidney cancer/non-small cell carcinoma status post radiation treatment Continue outpatient follow-up with oncology as scheduled. 4. Paroxysmal atrial fibrillation, on Xarelto Continue beta-sawyer for rate control. Continue to hold Xarelto as noted above. If no lesion found in the colon, reinitiation of anticoagulation may be considered. Would recommend Eliquis therapy over Xarelto given decreased half-life. 5. Acute kidney injury/hypokalemia RESOLVED > likely prerenal in etiology. The patient's creatinine has improved following volume expansion. We will continue to monitor. No indication for renal replacement therapy at this time. Electrolyte repletion is underway. 6. Troponin elevation Likely a type II demand ischemia in the setting of anemia. 7. BPH/hypothyroidism/peripheral vascular disease Complicates care, management, recovery and prognosis. Likely okay to reinitiate Synthroid therapy This note was generated with [employer] dictation software. It may contain incorrect words, spelling, and punctuation that were not noted in checking the note before signing. Code Visit Inpatient E&M: 71274 Subs Hosp L2
[2018-03-01] MEDS: Budesonide Respules 0.5 MG/2 ML AMPUL.NEB. INHALATION ×2 (06:44→20:20)
[2018-03-01] MEDS: Albuterol 2.5 MG/3 ML VIAL.NEB. INHALATION ×3 (06:45→20:20)
--- NOTE | 2018-03-01 06:52 | PCM.PN.HOSP ---
Patient Problems: Active and Suspected Problems (Last Reviewed 02/28/18 @ 01:55 by Johann Thomas MD) GIB (gastrointestinal bleeding) (Acute) Subjective: Patient continues on bowel prep noting abdominal discomfort and cramping with stooling clear liquids with continued black flecks. He does have exertional dyspnea especially with any attempted movements in bed or for restroom. He states he is feeling better than initial presentation but still ongoing debility as noted. He is still amenable for endoscopy. Patient denies fevers, chills, chest pain. Objective: Physical Examination: General: awake, alert, oriented x 3 and cooperative, seated upright in bed, fatigued appearance. Skin: normal color, turgor, no icterus, cyanosis with chronic venous stasis changes bilateral lower extremity, very staged ecchymoses. HEENT: AT/NC, EOMI, PERRLA, less dry MM. Lungs: Continued, BL diminished breath sounds bilaterally, greater bases, moderate effort, no wheezing currently. Heart: Irregular; no gallop, rub audible, SM. Abdomen: soft, mild TTP diffusely, notes cramping, mildly distended, hyperactive BS. Extremities: no cyanosis, clubbing, BL LE chronic venous skin changes, dermatitis. Neurological: patient awake, alert, oriented x 3; cognitive function intact; pupils equally reactive to light and accomodation; cranial nerves II-XII grossly normal, moving all 4 extremities, no focal deficits, strength remains moderately to severely globally decreased secondary to acute presentation. Psychiatric: affect appears fatigued, no acute evidence of depressive or anxiety feelings. Vitals/I&O's: Vital Signs Temp Pulse Resp BP Pulse Ox 97.4 F L 61 16 92/48 L 99 03/01/18 04:00 03/01/18 06:44 03/01/18 06:44 03/01/18 06:00 03/01/18 06:44 Oxygen Flow Rate (L/min) 3.5 Oxygen Delivery Method Nasal Cannula Weight: 184 lb 11.958 oz Body Mass Index (BMI) 29.0 Intake and Output for Last 24 Hours 02/27/18 02/28/18 03/01/18 23:59 23:59 23:59 Intake Total 4000 / 4000 240 / 240 Output Total 600 / 600 Balance 3400 / 3400 240 / 240 Laboratory Results 02/28/18 02:30: Troponin I 0.047 H 02/28/18 05:25: Magnesium 2.1 02/28/18 05:25: Phosphorus 3.3 02/28/18 09:21: POC Glucose 151 H 02/28/18 09:25: Hgb 9.3 L, Hct 28.2 L 02/28/18 11:26: POC Glucose 149 H 02/28/18 14:25: Hgb 8.9 L, Hct 27.6 L 02/28/18 17:37: POC Glucose 138 H 02/28/18 21:07: Hgb 9.1 L, Hct 28.1 L 02/28/18 21:39: POC Glucose 120 H 03/01/18 04:10: Sodium 143, Potassium 3.5, Chloride 106, Carbon Dioxide 31.0, Anion Gap 6, BUN 34 H, Creatinine 1.02, Estim Creat Clear Calc 62.10, Est GFR (MDRD) Af Amer 92, Est GFR (MDRD) Non-Af 76, BUN/Creatinine Ratio 33.3 H, Glucose 111 H, Calcium 8.2 L 03/01/18 04:10: WBC 9.9, RBC 3.19 L, Hgb 8.6 L, Hct 27.0 L, MCV 84.6, MCH 27.0, MCHC 31.9 L, RDW 17.4 H, RDW Differential 53.4 H, Plt Count 211, MPV 9.4, Immature Gran % (Auto) 0.100, Neut % (Auto) 81.6 H, Lymph % (Auto) 9.8 L, [place] % (Auto) 8.3, Eos % (Auto) 0.1, Baso % (Auto) 0.1, Absolute Neuts (auto) 8.1 H, Absolute Lymphs (auto) 0.97, Total Counted Not Reportable Current Medications Acetaminophen (Tylenol) 650 mg PO Q6H PRN PRN PRN Reason: Non-cardiac pain (mod-severe) Hydrocodone Bitart/Acetaminophen ([place] 5mg-325mg) 1 - 2 tablet PO Q6H PRN PRN PRN Reason: Moderate-severe pain Albuterol Sulfate (Ventolin Aerosols) 2.5 mg INHALATION Q6HWA.RT JHONNY Last Admin: 03/01/18 06:45 Dose: 2.5 mg Budesonide (Pulmicort Aerosol) 0.5 mg INHALATION Q12H.RT [facility] Last Admin: 03/01/18 06:44 Dose: 0.5 mg Cyclobenzaprine HCl (Flexeril) 10 mg PO TID PRN PRN PRN Reason: MUSCLE SPASM Last Admin: 02/28/18 10:09 Dose: 10 mg Digoxin (Lanoxin) 250 mcg PO DAILY [facility] Last Admin: 02/28/18 10:10 Dose: 250 mcg Finasteride (Proscar) 5 mg PO DAILY [facility] Last Admin: 02/28/18 10:10 Dose: 5 mg Pantoprazole Sodium 40 mg/ (Sodium Chloride) 110 mls @ 330 mls/hr IV Q12 [facility] Last Admin: 02/28/18 21:03 Dose: 330 mls/hr Sodium Chloride () 250 mls @ 15 mls/hr IV .[id number] PRN PRN Reason: SALINE FLUSH Sodium Chloride () 250 mls @ 15 mls/hr IV .[id number] PRN PRN Reason: SALINE FLUSH Levothyroxine Sodium (Synthroid) 100 mcg PO DAILY@0600 [facility] Last Admin: 03/01/18 06:18 Dose: 100 mcg Magnesium Hydroxide (Milk Of Magnesia) 30 ml PO DAILY PRN PRN PRN Reason: Constipation Metoprolol Succinate (Toprol Xl (Beta Deborah)) 50 mg PO DAILY [facility] Last Admin: 02/28/18 10:10 Dose: 50 mg Morphine Sulfate () 1 - 2 mg IV Q4H PRN PRN PRN Reason: PAIN Sodium Chloride () 5 - 30 ml IV UD PRN PRN Reason: SALINE FLUSH Last Admin: 03/01/18 00:15 Dose: 10 ml Sodium Chloride/Electrolytes (Nulytely) 2,000 ml PO 0600,1800 [facility] Stop: 03/01/18 18:01 Last Admin: 03/01/18 06:18 Dose: 2,000 ml Tamsulosin HCl (Flomax) 0.4 mg PO DAILY [facility] Last Admin: 02/28/18 10:10 Dose: 0.4 mg Medical Necessity - Tobacco Use Smoking Status: Former smoker Assessment/Plan All Active Problems (Last Reviewed 02/28/18 @ 01:55 by Johann Thomas MD) Peripheral vascular occlusive disease (Acute) Lymphedema (Acute) Peripheral arterial occlusive disease (Acute) GIB (gastrointestinal bleeding) (Acute) Renal cell carcinoma (Resolved) Pneumonia (Acute) Thyroid cancer (Resolved) The patient is a 72 y/o M w/ PMHx: PVD following w/ [facility] for BL LE chronic lymphedema, venous stasis dermatitis and stasis ulcers, Chronic Atrial Fibrillation on anticoagulation, HTN, HLD, Hx Thyroid CA s/p resection w/ Hypothyroidism, Peripheral Arterial Occlusive Disease, Chronic COPD w/ Chronic Hypoxic Respiratory Failure (5L NC), Diabetes mellitus type II, Hx Renal Cell Carcinoma s/p nephrectomy following w/ Nephrology who presents to the [facility] ED on 02/28/18 with history of progressively worsening weakness, fatigue, dizziness, increased falls and worsened dyspnea following his most recent radiation therapy in addition to onset black tarry appearing stools. (1) Acute GI Bleed w/ resultant Acute Blood Loss Anemia and Hypotension on Chronic Normocytic Anemia on Chronic Anticoagulation Therapy: Patient w/ reported black tarry stools on anticoagulation, admission Hgb 7.7-->6.7, 2/4 u PRBC being currently administered, VS improved, maintained in the ICU, upper endoscopy per Dr. Higuera, Surgery performed with no marked findings. Maintained on IV PPI, IVFs, trend serial HH, diet allowance per Surgery w/ planned bowel prep start today and planned colonoscopy 03/02/18 secondary to recent anticoagulation therapy. CT A/P ordered per Surgery and pending w/ PO and IV contrast w/ noted gallstones, tiny, distended bladder. 03/01/18 Hgb 8.6. 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 Will maintain on a monitored bed to assure no acute myocardial infarction with serial cardiac enzymes and EKGs. ECHO requested as no recent. Mag 2.1. No ASA/anticoagulation secondary to acute presentation with GI bleed, NG, morphine. (3) Hypokalemia: Admission K+ 3.1, supplementation given, repeat level 03/01/18 3.5, continue to monitor. (4) CKD stage III, LAB VALUES not consistent w/ SJ: s/p Nephrectomy secondary to Renal Cell Carcinoma, admission BUN/Cr 60/1.38, repeat following PRBC and hydration BUN/Cr 52/1.03, baseline 1.1-1.2, trend. Elevated BUN secondary to GI bleed most likely. 03/01/18 BUN/Cr 34/1.02. (5) Chronic Atrial Fibrillation: Holding coagulation secondary to acute presentation, #1, maintain on digoxin with level appropriate, metoprolol w/ hold parameters. (6) Chronic COPD: Will maintain on home oxygen supplementation, continue ATC duonebs, PRN albuterol, HOB, IS parameters. (7) History of Thyroid Cancer, History Renal Cell Carcinoma, Non-Small Cell Carcinoma: s/p thyroidectomy, continued on synthroid supplementation, renal function baseline from comparison as noted, on radiation treatments. Continue to follow with oncology outpatient. Mag and Phos normal. (8) Chronic PVD, Venous Stasis Dermatitis: SCDs, FELIZ as needed, elevation, following w/ [facility]. (9) BPH: Maintain on home flomax regimen. (10) DVT Prophylaxis: FELIZ, SCDs, holding chemoprophylaxis as noted. (11) CODE status: Full Code status. Code Visit Inpatient E&M: 72110 Subs Hosp L3
[2018-03-01 07:42] LABS: Hematocrit 28.3 % (40-54); Hemoglobin 8.8 g/dl (13.0-16.5)
--- NOTE | 2018-03-01 08:42 | PCM.PN.SRG ---
Patient Problems: Active and Suspected Problems (Last Reviewed 02/28/18 @ 01:55 by Johann Thomas MD) GIB (gastrointestinal bleeding) (Acute) Subjective: Patient is not complaining of any abdominal pain this morning. He did have 2 bowel movements overnight after a bottle mag citrate yesterday. He has no nausea or vomiting. - Physical Exam General: Alert, Oriented x3, Cooperative, No apparent distress Oral: Moist Mucosa Neck: No JVD Lungs: Normal air movement Cardiovascular: Regular rate, Regular Rhythm Abdomen: Soft, Non Tender, Non-Distended Musculoskeletal: No Muscle Wasting Neurological: Cranial nerves II-XII grossly intact Vital Signs Temp Pulse Resp BP Pulse Ox 97.4 F L 88 20 H 102/56 L 99 03/01/18 04:00 03/01/18 08:00 03/01/18 08:00 03/01/18 08:00 03/01/18 08:00 Oxygen Flow Rate (L/min) 4 Oxygen Delivery Method Nasal Cannula Weight: 184 lb 11.958 oz Body Mass Index (BMI) 29.0 Intake and Output for Last 24 Hours 02/27/18 02/28/18 03/01/18 23:59 23:59 23:59 Intake Total 4000 / 4000 240 / 240 Output Total 600 / 600 Balance 3400 / 3400 240 / 240 Laboratory Tests Past 24 Hrs 02/28/18 02/28/18 02/28/18 05:25 05:25 09:25 WBC RBC Hgb 9.3 L Hct 28.2 L MCV MCH MCHC RDW RDW Differential Plt Count MPV Immature Gran % (Auto) Neut % (Auto) Lymph % (Auto) [place] % (Auto) Eos % (Auto) Baso % (Auto) Absolute Neuts (auto) Absolute Lymphs (auto) Total Counted Sodium Potassium Chloride Carbon Dioxide Anion Gap BUN Creatinine Estim Creat Clear Calc Est GFR (MDRD) Af Amer Est GFR (MDRD) Non-Af BUN/Creatinine Ratio Glucose Calcium Phosphorus 3.3 Magnesium 2.1 02/28/18 02/28/18 03/01/18 14:25 21:07 04:10 WBC RBC Hgb 8.9 L 9.1 L Hct 27.6 L 28.1 L MCV MCH MCHC RDW RDW Differential Plt Count MPV Immature Gran % (Auto) Neut % (Auto) Lymph % (Auto) [place] % (Auto) Eos % (Auto) Baso % (Auto) Absolute Neuts (auto) Absolute Lymphs (auto) Total Counted Sodium 143 Potassium 3.5 Chloride 106 Carbon Dioxide 31.0 Anion Gap 6 BUN 34 H Creatinine 1.02 Estim Creat Clear Calc 62.10 Est GFR (MDRD) Af Amer 92 Est GFR (MDRD) Non-Af 76 BUN/Creatinine Ratio 33.3 H Glucose 111 H Calcium 8.2 L Phosphorus Magnesium 03/01/18 03/01/18 04:10 07:00 WBC 9.9 RBC 3.19 L Hgb 8.6 L 8.8 L Hct 27.0 L 28.3 L MCV 84.6 MCH 27.0 MCHC 31.9 L RDW 17.4 H RDW Differential 53.4 H Plt Count 211 MPV 9.4 Immature Gran % (Auto) 0.100 Neut % (Auto) 81.6 H Lymph % (Auto) 9.8 L [place] % (Auto) 8.3 Eos % (Auto) 0.1 Baso % (Auto) 0.1 Absolute Neuts (auto) 8.1 H Absolute Lymphs (auto) 0.97 Total Counted Not Reportable Sodium Potassium Chloride Carbon Dioxide Anion Gap BUN Creatinine Estim Creat Clear Calc Est GFR (MDRD) Af Amer Est GFR (MDRD) Non-Af BUN/Creatinine Ratio Glucose Calcium Phosphorus Magnesium POC Glucose 02/28/18 02/28/18 02/28/18 21:39 17:37 11:26 POC Glucose 120 H 138 H 149 H 02/28/18 09:21 POC Glucose 151 H Clinical Impression(s) from Imaging Studies Abdomen/Pelvis CT 02/28/18 09:12 IMPRESSION: There are fewer gallstones with a few tiny stones. There is very distended bladder. Other stable findings. Electronically Signed: Kayleen Marquez MD at 12:26 EDT , Service support , Medical Necessity - Tobacco Use Smoking Status: Former smoker Assessment/Plan All Active Problems (Last Reviewed 02/28/18 @ 01:55 by Johann Thomas MD) Peripheral vascular occlusive disease (Acute) Lymphedema (Acute) Peripheral arterial occlusive disease (Acute) GIB (gastrointestinal bleeding) (Acute) Renal cell carcinoma (Resolved) Pneumonia (Acute) Thyroid cancer (Resolved) 72-year-old male with GI bleed 1. Patient had EGD yesterday which was completely normal with no signs of bleeding. His hemoglobin did response to transfusion. His vitals are stable this morning and he is not having any bloody bowel movements. 2. Plan for colonoscopy tomorrow morning. Bowel prep this evening. Continue to hold blood thinners. 3. I explained endoscopy in detail to the patient. I explained the risks including but not limited to stroke or heart attack with anesthesia, perforation of the GI tract, bleeding, infection. I explained that any of these could necessitate further emergency surgery. The patient understands and all questions were answered sufficiently. The patient wishes to proceed with procedure. Tom Higuera MD Pager: [facility] [address] [place] [address], [address] [place] [address] Office:
--- NOTE | 2018-03-01 09:30 | NURSING ---
Echo in progress
[2018-03-01] MEDS: Metoprolol(XL)Succ 50 MG Tablet PO (10:01)
[2018-03-01] MEDS: Finasteride 5 MG Tablet PO (10:01)
[2018-03-01] MEDS: Tamsulosin HCl 0.4 MG Capsule PO (10:02)
[2018-03-01] MEDS: Digoxin 250 MCG Tablet PO (10:02)
[2018-03-01 15:23] LABS: Hematocrit 27.9 % (40-54); Hemoglobin 8.7 g/dl (13.0-16.5)
[2018-03-01 16:51] LABS: Bedside Glucose 117 mg/dL (70-110)
[2018-03-01 21:16] LABS: Bedside Glucose 90 mg/dL (70-110)
[2018-03-01 23:54] LABS: Hematocrit 27.3 % (40-54); Hemoglobin 8.6 g/dl (13.0-16.5)
[2018-03-02] VITALS (25 sets, daily range): BP systolic 83–124; BP diastolic 43–70; PULSE 62–86; RESP 16–22; TEMP 36.4–37.4; O2SAT 91–97; BMI 28.5
--- NOTE | 2018-03-02 | COLBX_PTH ---
PATIENT: MACARIO PARMAR LOC: [facility] U#:[id number] AGE/SX: 72/M ROOM: ICU03 RE02/28/[address]: Dr. Quoc Gipson MD : 1945 BED: 1 DIS: 03/04/2018 SPEC #: [id number] RECD: 03/02/18 14:36 STATUS: FEROZ REQ #: [id number] TING: 03/02/18 00:[address]: Tom Higuera DEPT: SURGICAL PATHOLOGY RECD BY: Bishop Brunner ENTERED: 03/02/18 14:36 SP TYPE: COLON BX OTHR DR: MD Dr. Margi Aguirre MD Dr. Derek Brown, DO Dr. Nhan Luu, MD Dr. Raymond Mason, MD Raymond Mason Tissues: Sigmoid colon biopsy Procedures: Surgery Specimen Level IV Comments: @ Ordering doctor for SUIV edited from to @ tom NOGUEIRA at 03/02/18 1556 @ Submitting doctor edited from to @ by RGOOD at 03/02/18 1556 HEADER OPERATION: Colonoscopy PRE-OP DIAGNOSIS: GI bleed TISSUE SUBMITTED: 30 cm sigmoid colon polyp MICROSCOPIC DIAGNOSIS Sigmoid colon polyp at 30 cm, biopsy: Fragments of tubulovillous adenoma. AM:kell 03/03/18 COMMENT Case has been reviewed in consultation with Dr. Rand who concurs with the above diagnosis. IDC:[email or web address] MICROSCOPIC DESCRIPTION Slides are reviewed. GROSS DESCRIPTION Received in fixative is one container labeled with the patient's name and designated 30 cm sigmoid colon polyp. The specimen consists of a piece of rios-pink polyp measuring 1 x 0.8 x 0.8 cm. Apparent base is inked black. The polyp is serially sectioned. Also present in the container are multiple fragments of rios soft tissue measuring in aggregate 2 x 0.5 x 0.2 cm. The entire specimen is submitted in two cassettes as follows: 1 ? serially sectioned polyp, 2 ? rest of the specimen. / Linsey 03/02/18 TC:5 CPT: 10753
[2018-03-02 04:25] LABS: Absolute Lymphocyte Count 0.94 X10^3/ul (0.83-4.51); Absolute Neutrophil Count 5.6 X10^3/uL (2.0-7.7); Basophil# 0.02 X10^3/uL; Basophil% 0.3 % (0-1); Eosinophil# 0.06 X10^3/uL; Eosinophils% 0.8 % (0-5); Hematocrit 28.2 % (40-54); Hemoglobin 8.7 g/dl (13.0-16.5); Lymphocyte # 0.94 X10^3/ul (4.0); Lymphocyte % 12.8 % (19-41); Mean Corp Hgb Conc 30.9 g/gl (32-36); Mean Corpuscular Hgb 26.9 pg (27.0-32.0); Mean Corpuscular Volume 87.3 fL (80-94); Mean Platelet Vol. 10.6 fl (6.2-12.0); Monocyte# 0.71 X10^3/uL; Monocyte% 9.7 % (0-10); Neutrophil # 5.61 X10^3/uL (2.7-7.7); Neutrophil % 76.3 % (47-70); Platelet Count 187 K/mm3 (150-450); RBC Distribution Width SD 57.4 fl (35.1-43.9); Red Blood Count 3.23 M/mm3 (4.6-6.2); White Blood Count 7.4 K/mm3 (4.4-11.0)
[2018-03-02 04:49] LABS: POSITIVE COUNT NO; POSITIVE DIFFERENTIAL NO; POSITIVE MORPHOLOGY NO
[2018-03-02] MEDS: Levothyroxine 100 MCG Tablet PO (06:01)
[2018-03-02 06:09] LABS: Anion Gap 13 (5-15); BUN 25 mg/dL (7-18); Chloride 105 mmol/L (98-107); EST Glomerular Filtration Rate 78 mL/min (>60); Est Glom Filt Rate - Afr Amer 95 mL/min (>60); Estimated Creatinine Clearance 63.35 ml/min; Glucose 79 mg/dL (74-106); Potassium 3.8 mmol/L (3.5-5.1); Sodium Level 141 mmol/L (136-145)
[2018-03-02 06:55] LABS: Bedside Glucose 86 mg/dL (70-110)
[2018-03-02] MEDS: Budesonide Respules 0.5 MG/2 ML AMPUL.NEB. INHALATION ×2 (07:30→19:37)
--- NOTE | 2018-03-02 08:20 | PCM.OPRPT ---
Problem List (1) GIB (gastrointestinal bleeding) Status: Acute Qualifiers: GI bleed type/associated pathology: unspecified gastrointestinal hemorrhage type Qualified Code(s): K92.2 - Gastrointestinal hemorrhage, unspecified Report of Operation Date of Procedure: 03/02/18 Pre-Operative Diagnosis: GI bleeding Post-Operative Diagnosis: Descending colon polyp Surgery/Procedure Performed:: Colonoscopy with snare polypectomy Description of Surgical Findings:: The patient had no blood clots or stigmata of bleeding in his colon. He had no diverticulosis. He did have a polyp which was rather large at the junction of his descending and sigmoid colon. This was removed with snare cautery. There were no AVMs noted. Specimen's removed: Distal descending colon polyp Description of Procedure: The major risks and benefits associated with the procedure were explained to the patient in detail. The patient verbalized understanding and agreement with the same. The patient was brought to the endoscopy suite. After adequate sedation was achieved, the patient was placed in the left lateral decubitus position and a digital rectal exam was performed. This examination was within normal limits. A well-lubricated colonoscope was then inserted into the rectum and advanced under direct visualization to the level of the cecum. The bowel prep was good. The cecum was identified by both visual and anatomic landmarks. A photograph was taken of the end of the cecum. There was no blood in the colon. There is no stigmata of bleeding such as blood clots. There were no AVMs. There were no diverticulosis. The scope was then fully withdrawn while examining the color, texture, anatomy and integrity of the mucosa from the cecum to the anal canal. The findings were consistent with normal colonic mucosa. The patient did have a pedunculated polyp at the junction of his descending and sigmoid colon. This was removed with snare cautery. The first snare did not remove the entire polyp but when I went back and I was able to get the snare around the stalk and have a clean base. Over 6 minutes were taken to examine the colonic mucosa. Upon reaching the rectum the scope was retroflexed to examine the distal rectal vault. The scope was then straightened and was completely retrieved upon exiting the anal canal and the procedure was terminated. The patient was then transferred to the recovery room in stable condition. Recommendations for follow up: Depending on pathology. The patient did not have any active bleeding in the colon or signs of past bleeding. From my standpoint he can resume his blood thinners in 2 days. The patient had no hematoma or sign of bleeding on CT or EGD either.
[2018-03-02] MEDS: Morphine 2 MG/ML Syringe IV (09:43)
[2018-03-02] MEDS: 0.9% NaCl Peripheral Flush Adult/Peds IV (09:44)
[2018-03-02] MEDS: Metoprolol(XL)Succ 50 MG Tablet PO (09:48)
[2018-03-02] MEDS: Digoxin 250 MCG Tablet PO (09:50)
[2018-03-02] MEDS: Tamsulosin HCl 0.4 MG Capsule PO (09:50)
[2018-03-02] MEDS: Finasteride 5 MG Tablet PO (09:51)
--- NOTE | 2018-03-02 10:41 | PCM.DC ---
- Discharge Diagnoses Current Active Problems: (1) Acute Suspected GI Bleed w/ resultant Acute Blood Loss Anemia and Hypotension on Chronic Normocytic Anemia on Chronic Anticoagulation Therapy (2) Indeterminate cardiac enzymes, likely demand ischemic secondary to acute presentation, #1 (3) Hypokalemia (4) CKD stage III, LAB VALUES not consistent w/ SJ (5) Chronic Atrial Fibrillation (6) Chronic COPD w/ Chronic Hypoxic Respiratory Failure (7) History of Thyroid Cancer, History Renal Cell Carcinoma, Non-Small Cell Carcinoma (8) Chronic PVD, Venous Stasis Dermatitis (9) Pulmonary Hypertension (10) BPH You will use the following diet at home:: Cardiac Your food should be the consistency of: Regular Your liquids should be the consistency of: Regular/Thin Discharge Activity: - - Advise continued fall precautions, continue with home health therapies to assure improvement. Weight Bearing Status: Weight bearing as tolerated Call your doctor if you observe: Fever of 101 or Higher, Inability to urinate, Inability to have a bowel movement, Shortness of breath, Dizziness, Fainting spells, Chest pain, Uncontrolled pain, - - Recurrent black or tarry stools. Instructions: When You Have Gastrointestinal (GI) Bleeding, Anemia Additional Instructions: Please continue with planned evaluation for outpatient cardiology follow-up to review admission and discuss consideration of further usage of anticoagulation. You may need to have this discontinued or you may have another trial and if recurrent bleeding it would be discontinuation. We did send rx for aspirin low dose to your pharmacy and this may also be a future consideration in 2 weeks instead of oral anticoagulation but may be discussed with your primary care physician. The endoscopies performed did not demonstrate any specific regions causing the anemia; however, sometimes we do not find the source. Please continue the high dose protonix twice daily. Please continue home therapies to assist in improving function and strength as well as lessen back discomfort. Allergies/Adverse Reactions: Allergies Penicillins Adverse Reaction (Verified 02/27/18 23:20) Rash cephalixin Allergy (Uncoded 02/27/18 23:20) gi upset Medications to take at Discharge Levothyroxine [Synthroid] 100 mcg PO DAILY 03/31/14 Metoprolol Succinate 50 mg PO DAILY 03/31/14 Tamsulosin HCl [Flomax] 0.4 mg PO DAILY 03/31/14 Potassium 99 mg PO DAILY 10/12/15 traMADol [Ultram] 50 mg PO Q6H PRN PRN 10/12/15 Albuterol IH (ProAir) [Proair Hfa] 1 - 2 puff INHALATION Q6H PRN PRN 05/06/17 Fluticasone/Vilanterol [Breo Ellipta 200-25 Mcg INH] 1 puff INHALATION DAILY 05/06/17 Naproxen Sodium [Aleve] 220 mg PO Q12H PRN PRN 10/26/17 cyclobenzaprine 10 mg tablet 10 mg PO TID PRN 11/20/17 Digoxin [Lanoxin] 250 mcg PO DAILY 12/11/17 Finasteride [Proscar] 5 mg PO DAILY 12/11/17 furosemide 40 mg tablet 40 mg PO QDAY #90 tab 01/28/18 Pantoprazole Sodium [Protonix] 40 mg PO BID #60 tab 03/02/18 The following prescriptions were given: Pantoprazole Sodium [Protonix] 40 mg PO BID #60 tab Primary Care Physician: Thong Rubalcava MD [Primary Care Provider] - Test Results: Test results from this visit will be discussed in further detail at your follow-up appointment, if applicable. Please Follow Up With: Thong Rubalcava MD When: 3-5 Days Please Follow Up With: Arnel Khalil DO When: As scheduled, 04/29/2018 Please Follow Up With: Jeff Plasencia MD When: Follow-up within 2 weeks to review admission and discuss anticoagulation Please Follow Up With: Gilberto Moy MD When: Please follow-up within 1-2 weeks to review pulmonary disease, hypertension Proposed Discharge Date: 03/02/18
--- NOTE | 2018-03-02 10:41 | PCM.DC ---
- Discharge Diagnoses Current Active Problems: Current Active and Chronic Problems (Last Reviewed 02/28/18 @ 01:55 by Johann Thomas MD) GIB (gastrointestinal bleeding) (Acute) You will use the following diet at home:: Calorie/Carbohydrate Controlled (specify 1200, 1400, etc) Discharge Activity: Return to Normal Activity Call your doctor if you observe: Fever of 101 or Higher, Shortness of breath, Dizziness, Fainting spells, Chest pain Additional Instructions: You will hold Xarelto for one week or until further advised by primary care physician. In the meantime, you will take baby aspirin, 81mg daily. Dr. Higuera's office will call you with biopsy results from testing. Allergies/Adverse Reactions: Allergies Penicillins Adverse Reaction (Verified 02/27/18 23:20) Rash cephalixin Allergy (Uncoded 02/27/18 23:20) gi upset Medications to take at Discharge Levothyroxine [Synthroid] 100 mcg PO DAILY 03/31/14 Metoprolol Succinate 50 mg PO DAILY 03/31/14 Tamsulosin HCl [Flomax] 0.4 mg PO DAILY 03/31/14 Potassium 99 mg PO DAILY 10/12/15 traMADol [Ultram] 50 mg PO Q6H PRN PRN 10/12/15 Albuterol IH (ProAir) [Proair Hfa] 1 - 2 puff INHALATION Q6H PRN PRN 05/06/17 Fluticasone/Vilanterol [Breo Ellipta 200-25 Mcg INH] 1 puff INHALATION DAILY 05/06/17 Naproxen Sodium [Aleve] 220 mg PO Q12H PRN PRN 10/26/17 cyclobenzaprine 10 mg tablet 10 mg PO TID PRN 11/20/17 Digoxin [Lanoxin] 250 mcg PO DAILY 12/11/17 Finasteride [Proscar] 5 mg PO DAILY 12/11/17 furosemide 40 mg tablet 40 mg PO QDAY #90 tab 01/28/18 Aspirin E.C. [Ecotrin] 81 mg PO DAILY@0800 #30 tab 03/02/18 Pantoprazole Sodium [Protonix] 40 mg PO DAILY #30 tab 03/02/18 The following prescriptions were given: Aspirin E.C. [Ecotrin] 81 mg PO DAILY@0800 #30 tab Pantoprazole Sodium [Protonix] 40 mg PO DAILY #30 tab Primary Care Physician: Thong Rubalcava MD [Primary Care Provider] - Test Results: Test results from this visit will be discussed in further detail at your follow-up appointment, if applicable. Please Follow Up With: Thong Rubalcava MD When: 3-5 Days Please Follow Up With: Arnel Khalil DO When: As scheduled, 04/29/2018 Please Follow Up With: Jeff Plasencia MD When: As scheduled for routine follow up Proposed Discharge Date: 03/02/18
--- NOTE | 2018-03-02 10:54 | PCM.DC.SUM ---
Discharge Date and Diagnosis Date of Admission: 02/28/18 Date of Discharge: 03/02/18 - Primary Discharge Diagnosis Active and Suspected Problems (Last Reviewed 02/28/18 @ 01:55 by Johann Thomas MD) 1. Acute blood loss anemia, suspect GI although source unclear on chronic normocytic anemia 2. Hypotension secondary to #1 3. Indeterminate cardiac enzymes, demand ischemia secondary to #1 4. Hyperkalemia-resolved. 5. Chronic kidney disease stage III, SJ ruled out 6. Chronic atrial fibrillation 7. Chronic COPD with chronic hypoxic respiratory failure 8. History of thyroid cancer, history of renal cell carcinoma, non-small cell carcinoma 9. Chronic PVD, venous stasis dermatitis 10. 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 Density right lung apex in part accounted for by a known right apical spiculated mass worrisome for malignancy and best seen on the recent CT scan. Stable small left pleural effusion. Electronically Signed: Ed Rinaldi MD at 0:20 EDT , Service support , Abdomen/Pelvis CT 02/28/18 09:12 IMPRESSION: There are fewer gallstones with a few tiny stones. There is very distended bladder. Other stable findings. Electronically Signed: Kayleen Marquez MD at 12:26 EDT cf, Service support , Dr. Martin- Energy Efficiency Engineer Dr. Higuera- Surgery Operations: None Procedures: 2-D Echocardiogram, Colonoscopy, EGD Summary of Care Provided: The patient is a 72 year old M admitted 02/28/2018 due to suspected GI bleed. He has a past medical history of PVD with venous stasis dermatitis, chronic atrial fibrillation on anticoagulation with Xarelto, hypertension, hyperlipidemia, history of thyroid cancer status post resection with hypothyroidism, peripheral arterial occlusive disease, chronic COPD with chronic hypoxic respiratory failure, type 2 diabetes mellitus, history of renal cell carcinoma status post nephrectomy with chronic kidney disease stage III, BPH. Patient was noted to have acute blood loss anemia, suspected secondary to GI loss although source unclear, on chronic normocytic anemia which required 2 units packed red blood cells transfusion. Home Xarelto regimen on hold. Patient underwent upper endoscopy with no acute findings. Colonoscopy 03/02/2018 with noted polyp however no evidence of bleeding. He will continue to hold Xarelto for 1 week. She will be started on baby aspirin 81 mg daily until patient resume Xarelto regimen. Patient started on Protonix 40 mg daily. Hemoglobin remained stable. Recommend repeat CBC in 3-5 days by primary care physician. Hypotension secondary to acute blood loss anemia resolved. Patient was noted to have indeterminate cardiac enzymes which is expected to be demand ischemia as a result of acute anemia. Other chronic medical conditions as noted above are stable at this time. Patient requires 5 L nasal cannula continuously at baseline due to chronic COPD. Echocardiogram completed which demonstrated an EF of 55%, stage I diastolic dysfunction, severe pulmonary hypertension with 100 mmHg RVSP. Patient previously followed with Dr. Moy. Recommend outpatient follow-up regarding increased RVSP. Discharge exam: Alert, awake, no acute distress. Chronic venous stasis dermatitis bilateral lower extremities. Lungs clear, diminished. Heart rate regular rate, no murmur. Abdomen soft, nontender, nondistended. No clubbing, no cyanosis, no edema. Neuro grossly intact. Normal affect. Patient seen exam prior to discharge. Physical assessment as noted above. Patient stable for discharge home with the follow-up her conditions as noted above. This patient was seen by LARA Calle under the supervision of Dr. Bustillo. Discharge Diet: Carb Control Diet Discharge Activity: Return to Normal Activity Call your doctor if you observe: Fever of 101 or Higher, Shortness of breath, Dizziness, Fainting spells, Chest pain Home Medications: Medications to take at Discharge Levothyroxine [Synthroid] 100 mcg PO DAILY 03/31/14 Metoprolol Succinate 50 mg PO DAILY 03/31/14 Tamsulosin HCl [Flomax] 0.4 mg PO DAILY 03/31/14 Potassium 99 mg PO DAILY 10/12/15 traMADol [Ultram] 50 mg PO Q6H PRN PRN 10/12/15 Albuterol IH (ProAir) [Proair Hfa] 1 - 2 puff INHALATION Q6H PRN PRN 05/06/17 Fluticasone/Vilanterol [Breo Ellipta 200-25 Mcg INH] 1 puff INHALATION DAILY 05/06/17 Naproxen Sodium [Aleve] 220 mg PO Q12H PRN PRN 10/26/17 cyclobenzaprine 10 mg tablet 10 mg PO TID PRN 11/20/17 Digoxin [Lanoxin] 250 mcg PO DAILY 12/11/17 Finasteride [Proscar] 5 mg PO DAILY 12/11/17 furosemide 40 mg tablet 40 mg PO QDAY #90 tab 01/28/18 Aspirin E.C. [Ecotrin] 81 mg PO DAILY@0800 #30 tab 03/02/18 Pantoprazole Sodium [Protonix] 40 mg PO BID #60 tab 03/02/18 Following Prescrptions Were Given to Patient: Aspirin E.C. [Ecotrin] 81 mg PO DAILY@0800 #30 tab Pantoprazole Sodium [Protonix] 40 mg PO BID #60 tab Primary Care Physician: Thong Rubalcava MD [Primary Care Provider] - Please Follow Up With: Thong Rubalcava MD When: 3-5 Days Please Follow Up With: Arnel Khalil DO When: As scheduled, 04/29/2018 Please Follow Up With: Jeff Plasencia MD When: As scheduled for routine follow up Disposition: Home Minutes spent on discharge:: 35 Patient Condition:: Stable Medical Necessity - Tobacco Use Smoking Status: Former smoker Meaningful Use Info Meaningful Use Diagnoses (Choose all that apply): None applicable
--- NOTE | 2018-03-02 10:59 | DS.PCM_ITS ---
Discharge Date and Diagnosis Date of Admission: 02/28/18 Date of Discharge: 03/02/18 - Primary Discharge Diagnosis Active and Suspected Problems (Last Reviewed 02/28/18 @ 01:55 by Johann Thomas MD) 1. Acute blood loss anemia, suspect GI although source unclear on chronic normocytic anemia 2. Hypotension secondary to #1 3. Indeterminate cardiac enzymes, demand ischemia secondary to #1 4. Hyperkalemia-resolved. 5. Chronic kidney disease stage III, SJ ruled out 6. Chronic atrial fibrillation 7. Chronic COPD with chronic hypoxic respiratory failure 8. History of thyroid cancer, history of renal cell carcinoma, non-small cell carcinoma 9. Chronic PVD, venous stasis dermatitis 10. 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 Density right lung apex in part accounted for by a known right apical spiculated mass worrisome for malignancy and best seen on the recent CT scan. Stable small left pleural effusion. Electronically Signed: Ed Rinaldi MD at 0:20 EDT , Service support , Abdomen/Pelvis CT 02/28/18 09:12 IMPRESSION: There are fewer gallstones with a few tiny stones. There is very distended bladder. Other stable findings. Electronically Signed: Kayleen Marquez MD at 12:26 EDT cf, Service support , Dr. Martin- Leather Heel Breaster Dr. Higuera- Surgery Operations: None Procedures: 2-D Echocardiogram, Colonoscopy, EGD Summary of Care Provided: The patient is a 72 year old M admitted 02/28/2018 due to suspected GI bleed. He has a past medical history of PVD with venous stasis dermatitis, chronic atrial fibrillation on anticoagulation with Xarelto, hypertension, hyperlipidemia, history of thyroid cancer status post resection with hypothyroidism, peripheral arterial occlusive disease, chronic COPD with chronic hypoxic respiratory failure, type 2 diabetes mellitus, history of renal cell carcinoma status post nephrectomy with chronic kidney disease stage III, BPH. Patient was noted to have acute blood loss anemia, suspected secondary to GI loss although source unclear, on chronic normocytic anemia which required 2 units packed red blood cells transfusion. Home Xarelto regimen on hold. Patient underwent upper endoscopy with no acute findings. Colonoscopy 2017 with noted polyp however no evidence of bleeding. He will continue to hold Xarelto for 1 week. She will be started on baby aspirin 81 mg daily until patient resume Xarelto regimen. Patient started on Protonix 40 mg daily. Hemoglobin remained stable. Recommend repeat CBC in 3-5 days by primary care physician. Hypotension secondary to acute blood loss anemia resolved. Patient was noted to have indeterminate cardiac enzymes which is expected to be demand ischemia as a result of acute anemia. Other chronic medical conditions as noted above are stable at this time. Patient requires 5 L nasal cannula continuously at baseline due to chronic COPD. Echocardiogram completed which demonstrated an EF of 55%, stage I diastolic dysfunction, severe pulmonary hypertension with 100 mmHg RVSP. Patient previously followed with Dr. Moy. Recommend outpatient follow-up regarding increased RVSP. Discharge exam: Alert, awake, no acute distress. Chronic venous stasis dermatitis bilateral lower extremities. Lungs clear, diminished. Heart rate regular rate, no murmur. Abdomen soft, nontender, nondistended. No clubbing, no cyanosis, no edema. Neuro grossly intact. Normal affect. Patient seen exam prior to discharge. Physical assessment as noted above. Patient stable for discharge home with the follow-up her conditions as noted above. This patient was seen by LARA Calle under the supervision of Dr. Bustillo. Discharge Diet: Carb Control Diet Discharge Activity: Return to Normal Activity Call your doctor if you observe: Fever of 101 or Higher, Shortness of breath, Dizziness, Fainting spells, Chest pain Home Medications: Medications to take at Discharge Levothyroxine [Synthroid] 100 mcg PO DAILY 03/31/14 Metoprolol Succinate 50 mg PO DAILY 03/31/14 Tamsulosin HCl [Flomax] 0.4 mg PO DAILY 03/31/14 Potassium 99 mg PO DAILY 10/12/15 traMADol [Ultram] 50 mg PO Q6H PRN PRN 10/12/15 Albuterol IH (ProAir) [Proair Hfa] 1 - 2 puff INHALATION Q6H PRN PRN 05/06/17 Fluticasone/Vilanterol [Breo Ellipta 200-25 Mcg INH] 1 puff INHALATION DAILY Naproxen Sodium [Aleve] 220 mg PO Q12H PRN PRN 10/26/17 cyclobenzaprine 10 mg tablet 10 mg PO TID PRN 11/20/17 Digoxin [Lanoxin] 250 mcg PO DAILY 12/11/17 Finasteride [Proscar] 5 mg PO DAILY 12/11/17 furosemide 40 mg tablet 40 mg PO QDAY #90 tab 01/28/18 Aspirin E.C. [Ecotrin] 81 mg PO DAILY@0800 #30 tab 03/02/18 Pantoprazole Sodium [Protonix] 40 mg PO BID #60 tab 03/02/18 Following Prescrptions Were Given to Patient: Aspirin E.C. [Ecotrin] 81 mg PO DAILY@0800 #30 tab Pantoprazole Sodium [Protonix] 40 mg PO BID #60 tab Primary Care Physician: Thong Rubalcava MD [Primary Care Provider] - Please Follow Up With: Thong Rubalcava MD When: 3-5 Days Please Follow Up With: Arnel Khalil DO When: As scheduled, 04/29/2018 Please Follow Up With: Jeff Plasencia MD When: As scheduled for routine follow up Disposition: Home Minutes spent on discharge:: 35 Patient Condition:: Stable Medical Necessity - Tobacco Use Smoking Status: Former smoker Meaningful Use Info Meaningful Use Diagnoses (Choose all that apply): None applicable
--- NOTE | 2018-03-02 11:19 | CASEMGMT ---
DELFINO THOMPSON NOTE: Intro role to RN DONNA. Pt resting in bed. Aware of discharge orders. Pt states has no concerns about returning home, stating he has a lot of family support of his , kids, and grandkids. Discussed option of HHC with patient. Pt declines HHC at this time. CM to follow for any discharge planning needs that may arise. Gerard HORNN DELFINO THOMPSON
--- NOTE | 2018-03-02 13:17 | CASEMGMT ---
Addendum entered by Mahad Wong 03/02/18 13:37: Received call from Quynh @ [facility] who stated they are unable to accept pt at this time d/t [facility] not credentialed with [place] at this time. Original Note: DELFINO THOPMSON NOTE: Pt's and family requesting HHC at this time and pt is agreeable. Agreeable to [facility]. Referral made to OLIVER Beauchamp, @ [facility]. Gerard CASTRO RN CM
--- NOTE | 2018-03-02 14:24 | CASEMGMT ---
Addendum entered by Barbi Tompkins 03/02/18 14:31: SW spoke with patient and he does reluctantly agree to going to TCU. NESTOR told him we will have to wait on insurance to approve before he can go. Barbi LOZADA Original Note: Physician and RN DONNA spoke with patient's family and they would prefer patient go to TCU. They will talk with patient to see if he is in agreement. Per RN CM patient agreed to [facility]CU. NESTOR spoke with Dayna in TCU and they will have a bed for patient. She will start the pre-cert. Plan: [facility] TCU pending insurance approval Barbi LOZADA
--- NOTE | 2018-03-02 14:27 | PCM.EXTCARCO ---
- Diet 03/02/18 08:31 Diabetic [Diet: Calorie Controlled] Is pt able to select menu?: Yes How many daily calories?: 1800 calorie - Routine Orders/Code Status Enema Type: Fleetz Enema Frequency: Daily PRN Suppository Type: Dulcolax 10mg Suppository Frequency: Daily PRN O2 Liters per Minute: 4-6 O2 Frequency: Continuous Keep PO Greater than or Equal to (%): 90 Routine Lab Work: - - CBC daily for 3 days and then Q Week. BMP weekly. Code Status: Full Code - Suggestions for Active Care Change Position every (hours): 2 Times a day to sit in chair: 3 - Therapies Physical Therapy: Eval and Treat Occupational Therapy: Eval and Treat - Problem/Diagnosis (1) Peripheral vascular occlusive disease Status: Chronic Current Visit: No (2) Lymphedema Status: Chronic Current Visit: No (3) Peripheral arterial occlusive disease Status: Chronic Current Visit: No (4) GIB (gastrointestinal bleeding) Status: Suspected Current Visit: Yes (5) Pulmonary hypertension Status: Chronic Current Visit: No (6) Paroxysmal atrial fibrillation Status: Chronic Current Visit: No (7) Ascites, malignant Status: Chronic Current Visit: No (8) Diabetes mellitus without complication Status: Chronic Current Visit: No (9) Hypertension Status: Chronic Current Visit: No (10) Hypothyroidism Status: Chronic Current Visit: No (11) Supraventricular tachycardia Status: Chronic Current Visit: No (12) Other secondary pulmonary hypertension Status: Chronic Current Visit: No (13) 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 Current Visit: No (14) Chronic respiratory failure Status: Chronic Comment: With hypoxia Current Visit: No (15) Renal cell carcinoma Status: Resolved Current Visit: No (16) COPD (chronic obstructive pulmonary disease) Status: Chronic Current Visit: No (17) Chronic a-fib Status: Chronic Current Visit: No - Allergies/Procedures Done in Hospital Allergies/Adverse Reactions: Allergies Penicillins Adverse Reaction (Verified 02/27/18 23:20) Rash cephalixin Allergy (Uncoded 02/27/18 23:20) gi upset Procedures: 2-D Echocardiogram, Colonoscopy, EGD - Type of Care/Length of Stay Estimated LOS: Convalescent Care Less Than 30 days Type of Care Needed: Skilled Rehab Potential: Fair Prognosis: Fair - Additional Orders/Day of Discharge H&P will serve as current which was dated: 02/28/18 Day of Discharge: 03/02/18 - Dietary and Speech Recommendations Dietitian Recommendations/Changes: Rec KERWIN to regular, low residue when medically able. Will provide ensure clear while on liquid diet for increased nutrition if consumed - Follow Up Care Primary Care Physician: Thnog Rubalcava MD [Primary Care Provider] - Please Follow Up With: Thong Rubalcava MD When: 3-5 Days Please Follow Up With: Arnel Khalil DO When: As scheduled, 04/29/2018 Please Follow Up With: Jeff Plasencia MD When: Follow-up within 2 weeks to review admission and discuss anticoagulation Please Follow Up With: Gilberto Moy MD When: Please follow-up within 1-2 weeks to review pulmonary disease, hypertension Please Follow Up With: Srinivasa Hampton MD
--- NOTE | 2018-03-02 14:37 | PCM.PROGNOTE ---
Patient Problems: Active and Suspected Problems (Last Reviewed 02/28/18 @ 01:55 by Johann Thomas MD) GIB (gastrointestinal bleeding) (Suspected) Subjective: Patient seen and examined. Complains of significant back pain. Denies other current complaints. - Physical Exam General: Alert, Oriented x3, Cooperative, No apparent distress HEENT: Atraumatic, PERRLA, EOMI, Normocephalic Neck: Supple, No JVD, Negative Carotid Bruits Lungs: Clear to auscultation, Diminished Cardiovascular: - - Atrial fibrillation, rate controlled. Abdomen: Bowel Sounds Present, Soft, Non Tender, Non-Distended Extremities: No clubbing, No cyanosis, Capillary Refill Less than 3 Seconds, Edema - Bilateral extremities. Skin: - - Chronic skin changes bilateral lower extremities. Musculoskeletal: No Tenderness to Palpation of Joints or Extremities Neurological: Cranial nerves II-XII grossly intact, Neuro grossly intact Psych/Mental Status: Normal Affect, Appropriate Vital Signs Temp Pulse Resp BP Pulse Ox 98.5 F 80 20 H 108/51 L 93 03/02/18 09:48 03/02/18 09:48 03/02/18 09:48 03/02/18 09:48 03/02/18 09:48 Oxygen Flow Rate (L/min) 6 Oxygen Delivery Method Nasal Cannula Weight: 181 lb 14.102 oz Body Mass Index (BMI) 28.5 Intake and Output for Last 24 Hours 02/28/18 03/01/18 03/02/18 23:59 23:59 23:59 Intake Total 4000 / 4000 589.5 / 589.5 500 / 500 Output Total 600 / 600 Balance 3400 / 3400 589.5 / 589.5 500 / 500 Laboratory Tests Past 24 Hrs 03/01/18 03/01/18 03/02/18 15:10 23:14 04:00 WBC 7.4 RBC 3.23 L Hgb 8.7 L 8.6 L 8.7 L Hct 27.9 L 27.3 L 28.2 L MCV 87.3 MCH 26.9 L MCHC 30.9 L RDW 18.0 H RDW Differential 57.4 H Plt Count 187 MPV 10.6 Immature Gran % (Auto) 0.100 Neut % (Auto) 76.3 H Lymph % (Auto) 12.8 L [place] % (Auto) 9.7 Eos % (Auto) 0.8 Baso % (Auto) 0.3 Absolute Neuts (auto) 5.6 Absolute Lymphs (auto) 0.94 Total Counted Not Reportable Sodium Potassium Chloride Carbon Dioxide Anion Gap BUN Creatinine Estim Creat Clear Calc Est GFR (MDRD) Af Amer Est GFR (MDRD) Non-Af BUN/Creatinine Ratio Glucose Calcium 03/02/18 05:14 WBC RBC Hgb Hct MCV MCH MCHC RDW RDW Differential Plt Count MPV Immature Gran % (Auto) Neut % (Auto) Lymph % (Auto) [place] % (Auto) Eos % (Auto) Baso % (Auto) Absolute Neuts (auto) Absolute Lymphs (auto) Total Counted Sodium 141 Potassium 3.8 Chloride 105 Carbon Dioxide 23.0 Anion Gap 13 BUN 25 H Creatinine 1.00 Estim Creat Clear Calc 63.35 Est GFR (MDRD) Af Amer 95 Est GFR (MDRD) Non-Af 78 BUN/Creatinine Ratio 25.0 H Glucose 79 Calcium 8.0 L POC Glucose 03/02/18 03/01/18 03/01/18 06:04 21:09 16:40 POC Glucose 86 90 117 H Medical Necessity - Tobacco Use Smoking Status: Former smoker Assessment/Plan All Active Problems (Last Reviewed 02/28/18 @ 01:55 by Johann Thomas MD) Renal cell carcinoma (Resolved) Thyroid cancer (Resolved) 1. Acute blood loss anemia, suspect GI although source unclear on chronic normocytic anemia-EGD/colonoscopy without evidence of acute bleeding. Continue to hold the Xarelto. Continue PPI twice daily. Trend CBC. 2. Hypotension secondary to #1-resolved. 3. Indeterminate cardiac enzymes, demand ischemia secondary to #1 4. Hyperkalemia-resolved. 5. Chronic kidney disease stage III, SJ ruled out-trend BMP. 6. Chronic atrial fibrillation-rate controlled. The Xarelto on hold secondary to #1. 7. Chronic COPD with chronic hypoxic respiratory failure-chronically on 5 L nasal cannula continuously. Continue supplement oxygen to maintain O2 at or above 90%. 8. History of thyroid cancer, history of renal cell carcinoma, non-small cell carcinoma-continue outpatient follow-up. 9. Chronic PVD, venous stasis dermatitis-follows at [facility]. 10. BPH-continue home Flomax regimen. DVT prophylaxis-SCDs. This patient was seen by LARA Calle under the supervision of Dr. Bustillo.
--- NOTE | 2018-03-02 18:56 | NURSING ---
Pt has refused all BG checks this shift. made aware.
[2018-03-02] MEDS: Albuterol 2.5 MG/3 ML VIAL.NEB. INHALATION (19:37)
[2018-03-02] MEDS: 0.9% Normal Saline 1,000 ML 999 ML IV (22:28)
--- NOTE | 2018-03-02 22:47 | NURSING ---
spoke with Holden, son, about patient's Hgb. he called in to ask what the last result was and I informed him it was 8.7
[2018-03-03] VITALS (48 sets, daily range): BP systolic 65–143; BP diastolic 33–63; PULSE 60–117; RESP 12–27; TEMP 36.3–37.2; O2SAT 89–100
[2018-03-03 00:30] LABS: Bedside Glucose 107 mg/dL (70-110)
[2018-03-03] MEDS: 0.9% Normal Saline 1,000 ML 999 ML IV (00:30)
[2018-03-03 00:55] LABS: Hematocrit 28.6 % (40-54); Hemoglobin 8.8 g/dl (13.0-16.5)
[2018-03-03 02:58] LABS: Anion Gap 8 (5-15); BUN 27 mg/dL (7-18); BUN/Creat Ratio 19.9 RATIO (10-20); Calcium,Total 7.5 mg/dL (8.5-10.1); Chloride 103 mmol/L (98-107); Creatinine, Serum 1.36 mg/dL (0.70-1.30); EST Glomerular Filtration Rate 55 mL/min (>60); Est Glom Filt Rate - Afr Amer 67 mL/min (>60); Estimated Creatinine Clearance 46.58 ml/min; Glucose 109 mg/dL (74-106); Magnesium 2.3 mg/dL (1.6-2.6); Potassium 4.4 mmol/L (3.5-5.1); Sodium Level 136 mmol/L (136-145)
--- NOTE | 2018-03-03 04:28 | PCM.HOSP.N ---
Hospitalist Note Please see my paper progress note during [employer] downtime patient had hypotension about 8:30 PM, 85/47 persistent for 3 hours even patient received 2 L of IV fluid normal saline bolus. Heart rate in 70s per minute. Patient has severe pulmonary hypertension, RVSP more than 100 mmHg, 4+ severe TR, right ventricular dilated with gross systolic dysfunction. Right atrium severely enlarged. LA normal. EF 55% with a stage I diastolic dysfunction. Patient has transferred to ICU. Started on IV levo fed. Patient has chronic shortness of breath secondary to severe pulmonary hypertension. Denies any chest pain. H&H was done and showed stable; 8.8/28.6. BMP does not show much change except creatinine 1.36 from 1.0. Troponin 0.14 from baseline 0.04. EKG was ordered. Well Drill Operator is already been consulted. Blood pressures has improved 119/50, 73 on Levophed 5 mics per kg per minute. Repeat 2 more troponins to see the trend. Assessment Severe pulmonary hypertension with 4+ to ER secondary to chronic cor pulmonale Right-sided heart failure Hypotension
--- NOTE | 2018-03-03 04:35 | CCHN_ITS ---
Hospitalist Note Please see my paper progress note during [employer] downtime patient had hypotension about 8:30 PM, 85/47 persistent for 3 hours even patient received 2 L of IV fluid normal saline bolus. Heart rate in 70s per minute. Patient has severe pulmonary hypertension, RVSP more than 100 mmHg, 4+ severe TR , right ventricular dilated with gross systolic dysfunction. Right atrium severely enlarged. LA normal. EF 55% with a stage I diastolic dysfunction. Patient has transferred to ICU. Started on IV levo fed. Patient has chronic shortness of breath secondary to severe pulmonary hypertension. Denies any chest pain. H&H was done and showed stable; 8.8/28.6. BMP does not show much change except creatinine 1.36 from 1.0. Troponin 0.14 from baseline 0.04. EKG was ordered. In Class Special Education Teacher is already been consulted. Blood pressures has improved 119/50, 73 on Levophed 5 mics per kg per minute. Repeat 2 more troponins to see the trend. Assessment Severe pulmonary hypertension with 4+ to ER secondary to chronic cor pulmonale Right-sided heart failure Hypotension
[2018-03-03 05:02] LABS: Absolute Lymphocyte Count 1.02 X10^3/ul (0.83-4.51); Absolute Neutrophil Count 6.5 X10^3/uL (2.0-7.7); Basophil# 0.03 X10^3/uL; Basophil% 0.4 % (0-1); Eosinophil# 0.02 X10^3/uL; Eosinophils% 0.2 % (0-5); Hematocrit 27.4 % (40-54); Hemoglobin 8.6 g/dl (13.0-16.5); Lymphocyte # 1.02 X10^3/ul (4.0); Lymphocyte % 11.9 % (19-41); Mean Corp Hgb Conc 31.4 g/gl (32-36); Mean Corpuscular Hgb 27.2 pg (27.0-32.0); Mean Corpuscular Volume 86.7 fL (80-94); Mean Platelet Vol. 10.1 fl (6.2-12.0); Monocyte# 0.96 X10^3/uL; Monocyte% 11.2 % (0-10); Neutrophil # 6.49 X10^3/uL (2.7-7.7); Neutrophil % 76.1 % (47-70); Platelet Count 187 K/mm3 (150-450); RBC Distribution Width CV 17.5 % (11.6-14.6); RBC Distribution Width SD 53.7 fl (35.1-43.9); Red Blood Count 3.16 M/mm3 (4.6-6.2); White Blood Count 8.5 K/mm3 (4.4-11.0)
[2018-03-03 05:04] LABS: POSITIVE COUNT NO; POSITIVE DIFFERENTIAL NO; POSITIVE MORPHOLOGY NO
[2018-03-03 05:16] LABS: BUN 27 mg/dL (7-18); Creatinine, Serum 1.26 mg/dL (0.70-1.30); EST Glomerular Filtration Rate 60 mL/min (>60); Estimated Creatinine Clearance 50.27 ml/min; Glucose 140 mg/dL (74-106)
[2018-03-03 05:17] LABS: Anion Gap 12 (5-15); BUN/Creat Ratio 21.4 RATIO (10-20); Calcium,Total 7.8 mg/dL (8.5-10.1); Chloride 103 mmol/L (98-107); Est Glom Filt Rate - Afr Amer 72 mL/min (>60); Potassium 4.1 mmol/L (3.5-5.1); Sodium Level 139 mmol/L (136-145)
[2018-03-03] MEDS: Levothyroxine 100 MCG Tablet PO (05:45)
--- NOTE | 2018-03-03 06:48 | PN_ITS ---
Subjective: Patient known to me from previous ICU stay. Overnight events were reviewed. Patient reports resolution of all symptoms. Patient is denying any pain at this time. Patient does remain on Levophed at 5. Patient denies any acute blood loss such as melena, hematochezia, hemoptysis or hematemesis. Patient reportedly a tolerated colonoscopy well without complication. Patient's oxygenation did improve with initiation of pressor therapy. General: Alert, Oriented x3, Cooperative, No apparent distress, - - Appears stated age. Speaking in full sentences. HEENT: Atraumatic, PERRLA, EOMI, Normocephalic, - - No scleral icterus or injection noted. Oral: Moist Mucosa, No Gingival or Mucosal Lesions/ Ulcerations Neck: Supple, No JVD, No Nodes, Trachea Midline Lungs: No rhonchi, No wheeze, No rales, Diminished Cardiovascular: Normal S1, Normal S2, No murmurs, Irregular Rate, No rub noted, No Gallop Abdomen: Bowel Sounds Present, Soft, Non Tender, Non-Distended Extremities: No cyanosis, No edema, Capillary Refill Less than 3 Seconds, Clubbing Skin: No rashes, No breakdown Musculoskeletal: No Tenderness to Palpation of Joints or Extremities Lymphatic: No Cervical, Supraclavicular, or Inguinal Adenopathy Neurological: Cranial nerves II-XII grossly intact, Neuro grossly intact, Motor Exam 5/5 strength throughout Psych/Mental Status: Alert and oriented to time, place, person, mood and affect Vital Signs Temp Pulse Resp BP Pulse Ox 36.6 C 65 15 143/52 H 93 03/03/18 03:45 03/03/18 05:00 03/03/18 05:00 03/03/18 05:14 03/03/18 05:49 Oxygen Flow Rate (L/min) 6 Oxygen Delivery Method Nasal Cannula Weight: 82.5 kg Body Mass Index (BMI) 28.5 Intake and Output for Last 24 Hours 03/01/18 03/02/18 03/03/18 23:59 23:59 23:59 Intake Total 589.5 / 589.5 2970 / 2970 868.7 / 868.7 Output Total 200 / 200 200 / 200 Balance 589.5 / 589.5 2770 / 2770 668.7 / 668.7 Labs (Last 48 Hours) 03/01/18 03/01/18 03/01/18 07:00 15:10 16:40 WBC RBC Hgb 8.8 L 8.7 L Hct 28.3 L 27.9 L MCV MCH MCHC RDW RDW Differential Plt Count MPV Immature Gran % (Auto) Neut % (Auto) Lymph % (Auto) [place] % (Auto) Eos % (Auto) Baso % (Auto) Absolute Neuts (auto) Absolute Lymphs (auto) Total Counted Sodium Potassium Chloride Carbon Dioxide Anion Gap BUN Creatinine Estim Creat Clear Calc Est GFR (MDRD) Af Amer Est GFR (MDRD) Non-Af BUN/Creatinine Ratio Glucose Calcium Magnesium Troponin I POC Glucose 117 H 03/01/18 03/01/18 03/02/18 21:09 23:14 04:00 WBC 7.4 RBC 3.23 L Hgb 8.6 L 8.7 L Hct 27.3 L 28.2 L MCV 87.3 MCH 26.9 L MCHC 30.9 L RDW 18.0 H RDW Differential 57.4 H Plt Count 187 MPV 10.6 Immature Gran % (Auto) 0.100 Neut % (Auto) 76.3 H Lymph % (Auto) 12.8 L [place] % (Auto) 9.7 Eos % (Auto) 0.8 Baso % (Auto) 0.3 Absolute Neuts (auto) 5.6 Absolute Lymphs (auto) 0.94 Total Counted Not Reportable Sodium Potassium Chloride Carbon Dioxide Anion Gap BUN Creatinine Estim Creat Clear Calc Est GFR (MDRD) Af Amer Est GFR (MDRD) Non-Af BUN/Creatinine Ratio Glucose Calcium Magnesium Troponin I POC Glucose 90 03/02/18 03/02/18 03/03/18 05:14 06:04 00:12 WBC RBC Hgb Hct MCV MCH MCHC RDW RDW Differential Plt Count MPV Immature Gran % (Auto) Neut % (Auto) Lymph % (Auto) [place] % (Auto) Eos % (Auto) Baso % (Auto) Absolute Neuts (auto) Absolute Lymphs (auto) Total Counted Sodium 141 Potassium 3.8 Chloride 105 Carbon Dioxide 23.0 Anion Gap 13 BUN 25 H Creatinine 1.00 Estim Creat Clear Calc 63.35 Est GFR (MDRD) Af Amer 95 Est GFR (MDRD) Non-Af 78 BUN/Creatinine Ratio 25.0 H Glucose 79 Calcium 8.0 L Magnesium Troponin I POC Glucose 86 107 03/03/18 03/03/18 03/03/18 00:40 01:15 04:50 WBC RBC Hgb 8.8 L Hct 28.6 L MCV MCH MCHC RDW RDW Differential Plt Count MPV Immature Gran % (Auto) Neut % (Auto) Lymph % (Auto) [place] % (Auto) Eos % (Auto) Baso % (Auto) Absolute Neuts (auto) Absolute Lymphs (auto) Total Counted Sodium 136 139 Potassium 4.4 4.1 Chloride 103 103 Carbon Dioxide 25.0 24.0 Anion Gap 8 12 BUN 27 H 27 H Creatinine 1.36 H 1.26 Estim Creat Clear Calc 46.58 50.27 Est GFR (MDRD) Af Amer 67 72 Est GFR (MDRD) Non-Af 55 L 60 BUN/Creatinine Ratio 19.9 21.4 H Glucose 109 H 140 H Calcium 7.5 L 7.8 L Magnesium 2.3 Troponin I 0.140 H POC Glucose 03/03/18 03/03/18 04:50 04:50 WBC 8.5 RBC 3.16 L Hgb 8.6 L Hct 27.4 L MCV 86.7 MCH 27.2 MCHC 31.4 L RDW 17.5 H RDW Differential 53.7 H Plt Count 187 MPV 10.1 Immature Gran % (Auto) 0.200 Neut % (Auto) 76.1 H Lymph % (Auto) 11.9 L [place] % (Auto) 11.2 H Eos % (Auto) 0.2 Baso % (Auto) 0.4 Absolute Neuts (auto) 6.5 Absolute Lymphs (auto) 1.02 Total Counted Not Reportable Sodium Potassium Chloride Carbon Dioxide Anion Gap BUN Creatinine Estim Creat Clear Calc Est GFR (MDRD) Af Amer Est GFR (MDRD) Non-Af BUN/Creatinine Ratio Glucose Calcium Magnesium Troponin I 0.144 H POC Glucose Medical Necessity - Tobacco Use Smoking Status: Former smoker Assessment/Plan All Active Problems (Last Reviewed 02/28/18 @ 01:55 by Johann Thomas MD) Renal cell carcinoma (Resolved) Thyroid cancer (Resolved) RECOMMENDATIONS: 1. Wean off pressor therapy 2. Possible initiation of stress dose steroids 3. Continue to follow H&H on a daily basis 4. Continue scheduled bronchodilators. IMPRESSIONS: 1. Acute blood loss anemia with concern for gastrointestinal blood loss in the setting of Xarelto utilization Patient has had upper and lower endoscopies and no obvious source of bleeding has been noted. Patient's hemoglobin has remained relatively stable. Patient with hypotension following administration of morphine therapy. No clinical signs of bleeding have been noted. Doubt hypotension is secondary to recurrent bleed 2. Personal history of COPD of unknown severity along with chronic hypoxemic respiratory failure Continue supplemental oxygen and wean as tolerated. Continue scheduled bronchodilators. Patient's respiratory status appears to be stabilizing with H& H. Continue supplemental oxygen to keep saturations 88-92%. 3. History of thyroid cancer/kidney cancer/non-small cell carcinoma status post radiation treatment Continue outpatient follow-up with oncology as scheduled. 4. Paroxysmal atrial fibrillation, on Xarelto Continue beta-sawyer for rate control. Continue to hold Xarelto as noted above. Reinitiation of anticoagulation may be considered. Would recommend Eliquis therapy over Xarelto given decreased half-life. 5. Acute kidney injury/hypokalemia RESOLVED > likely prerenal in etiology. The patient's creatinine has improved following volume expansion. We will continue to monitor. No indication for renal replacement therapy at this time. Electrolyte repletion is underway. 6. Troponin elevation Likely a type II demand ischemia in the setting of anemia. 7. BPH/hypothyroidism/peripheral vascular disease Complicates care, management, recovery and prognosis. Likely okay to reinitiate Synthroid therapy 8. Distributive/cardiogenic shock Patient was severely elevated right-sided blood pressures known previously. This will make patient very preload dependent. Patient did have a temporal relationship with the dosing of morphine therapy, which may have led to vasodilation and decreased right ventricular function. Patient did not respond initially to fluid therapy. Will attempt to wean off pressor therapy. If patient continues to have difficulty, Toprol will need to be decreased in stress dose steroids may be indicated. Patient does not have any fever or leukocytosis to suggest infectious etiology. Patient has not had a decrease in hemoglobin to suggest hypovolemic shock. This note was generated with [employer] dictation software. It may contain incorrect words, spelling, and punctuation that were not noted in checking the note before signing. TIME: 32 minutes critical care time spent addressing patient's acute hypotension, acute blood loss anemia, COPD, review of all data and collaboration with care team (5:30 AM to 6:30 AM) Code Visit [id number]: [id number] Critical care first hour
[2018-03-03] MEDS: Budesonide Respules 0.5 MG/2 ML AMPUL.NEB. INHALATION ×2 (07:12→18:32)
[2018-03-03] MEDS: Albuterol 2.5 MG/3 ML VIAL.NEB. INHALATION ×2 (07:12→13:03)
--- NOTE | 2018-03-03 09:47 | PCM.PN.SRG ---
Patient Problems: Active and Suspected Problems (Last Reviewed 02/28/18 @ 01:55 by Johann Thomas MD) GIB (gastrointestinal bleeding) (Suspected) Subjective: Patient moved back to ICU for hypotension overnight. No bloody bowel movements. He was tolerating a regular diet this morning when I saw him. - Physical Exam General: Alert, Oriented x3, Cooperative HEENT: PERRLA Neck: Supple Lungs: Normal air movement Cardiovascular: Regular rate, Regular Rhythm Abdomen: Soft, Non Tender, Non-Distended Vital Signs Temp Pulse Resp BP Pulse Ox 99 F 67 15 118/46 L 95 03/03/18 07:21 03/03/18 07:23 03/03/18 07:21 03/03/18 07:21 03/03/18 07:21 Oxygen Flow Rate (L/min) 6 Oxygen Delivery Method Nasal Cannula Weight: 199 lb 1.239 oz Body Mass Index (BMI) 28.5 Intake and Output for Last 24 Hours 03/01/18 03/02/18 03/03/18 23:59 23:59 23:59 Intake Total 589.5 / 589.5 2970 / 2970 868.7 / 868.7 Output Total 200 / 200 200 / 200 Balance 589.5 / 589.5 2770 / 2770 668.7 / 668.7 Laboratory Tests Past 24 Hrs 03/03/18 03/03/18 03/03/18 00:40 01:15 04:50 WBC RBC Hgb 8.8 L Hct 28.6 L MCV MCH MCHC RDW RDW Differential Plt Count MPV Immature Gran % (Auto) Neut % (Auto) Lymph % (Auto) [place] % (Auto) Eos % (Auto) Baso % (Auto) Absolute Neuts (auto) Absolute Lymphs (auto) Total Counted Sodium 136 139 Potassium 4.4 4.1 Chloride 103 103 Carbon Dioxide 25.0 24.0 Anion Gap 8 12 BUN 27 H 27 H Creatinine 1.36 H 1.26 Estim Creat Clear Calc 46.58 50.27 Est GFR (MDRD) Af Amer 67 72 Est GFR (MDRD) Non-Af 55 L 60 BUN/Creatinine Ratio 19.9 21.4 H Glucose 109 H 140 H Calcium 7.5 L 7.8 L Magnesium 2.3 Troponin I 0.140 H 03/03/18 03/03/18 03/03/18 04:50 04:50 09:00 WBC 8.5 RBC 3.16 L Hgb 8.6 L Hct 27.4 L MCV 86.7 MCH 27.2 MCHC 31.4 L RDW 17.5 H RDW Differential 53.7 H Plt Count 187 MPV 10.1 Immature Gran % (Auto) 0.200 Neut % (Auto) 76.1 H Lymph % (Auto) 11.9 L [place] % (Auto) 11.2 H Eos % (Auto) 0.2 Baso % (Auto) 0.4 Absolute Neuts (auto) 6.5 Absolute Lymphs (auto) 1.02 Total Counted Not Reportable Sodium Potassium Chloride Carbon Dioxide Anion Gap BUN Creatinine Estim Creat Clear Calc Est GFR (MDRD) Af Amer Est GFR (MDRD) Non-Af BUN/Creatinine Ratio Glucose Calcium Magnesium Troponin I 0.144 H 0.128 H POC Glucose 03/03/18 00:12 POC Glucose 107 Medical Necessity - Tobacco Use Smoking Status: Former smoker Assessment/Plan All Active Problems (Last Reviewed 02/28/18 @ 01:55 by Johann Thomas MD) Renal cell carcinoma (Resolved) Thyroid cancer (Resolved) 72-year-old male with anemia 1. Patient has had an EGD and colonoscopy with no source of bleeding. Patient is tolerating regular diet with no bloody bowel movements. Patient remains on Levophed. 2. Regular diet as tolerated. Patient has been started on aspirin for his A. fib. At this point I do not have a source of bleeding. CT scan was negative as well. He may see a petroleum engineer if he would like to pursue capsule endoscopy. Tom Higuera MD Pager: [facility] [address] [place] [address], [address] [place] [address] Office:
--- NOTE | 2018-03-03 09:59 | PCM.PROGNOTE ---
Patient Problems: Active and Suspected Problems (Last Reviewed 02/28/18 @ 01:55 by Johann Thomas MD) GIB (gastrointestinal bleeding) (Suspected) Subjective: Chief complaint: Follow-up after admission for acute GI bleed, acute blood loss anemia and overnight, patient became hypotensive, was transferred to ICU started on Levophed. Patient seen and examined. At this time, he feels better. He denied chest pain or shortness of breath. Denied dizziness or lightheadedness. He mentioned that last night, he was more short of breath and dizzy when he was hypotensive. He denied abdominal pain, hematemesis, hematochezia or melena. At this time, he is afebrile, heart rate stable, blood pressure is on the lower side, pulse ox is 95% on 6 L. - Physical Exam General: Alert, Oriented x3, Cooperative, - - Minimally short of breath. HEENT: Atraumatic, PERRLA, EOMI, Normocephalic Oral: Moist Mucosa, No Gingival or Mucosal Lesions/ Ulcerations Neck: Supple, No JVD, Negative Carotid Bruits, Trachea Midline, Thyroid Normal Size and Texture Lungs: No wheeze, Diminished, Rhonchi, Short of Breath, - - Decreased breath sounds at the bases, faint basilar crackles, scattered rhonchi. Cardiovascular: Regular rate, Regular Rhythm, Normal S1, Normal S2 Abdomen: Bowel Sounds Present, Soft, Non Tender, Non-Distended, No Hepato-splenomegaly Extremities: No clubbing, No cyanosis, Edema - Trace edema, stasis dermatitis. Skin: No rashes, No breakdown Lymphatic: No Cervical, Supraclavicular, or Inguinal Adenopathy Neurological: Cranial nerves II-XII grossly intact, Motor Exam 5/5 strength throughout Psych/Mental Status: Normal Affect, Appropriate, Alert and oriented to time, place, person, mood and affect Vital Signs Temp Pulse Resp BP Pulse Ox 99 F 67 15 118/46 L 95 03/03/18 07:21 03/03/18 07:23 03/03/18 07:21 03/03/18 07:21 03/03/18 07:21 Oxygen Flow Rate (L/min) 6 Oxygen Delivery Method Nasal Cannula Weight: 199 lb 1.239 oz Body Mass Index (BMI) 28.5 Intake and Output for Last 24 Hours 08/03/02/18 03/03/18 23:59 23:59 23:59 Intake Total 589.5 / 589.5 2970 / 2970 868.7 / 868.7 Output Total 200 / 200 200 / 200 Balance 589.5 / 589.5 2770 / 2770 668.7 / 668.7 Laboratory Tests Past 24 Hrs 03/03/18 03/03/18 03/03/18 00:40 01:15 04:50 WBC RBC Hgb 8.8 L Hct 28.6 L MCV MCH MCHC RDW RDW Differential Plt Count MPV Immature Gran % (Auto) Neut % (Auto) Lymph % (Auto) [place] % (Auto) Eos % (Auto) Baso % (Auto) Absolute Neuts (auto) Absolute Lymphs (auto) Total Counted Sodium 136 139 Potassium 4.4 4.1 Chloride 103 103 Carbon Dioxide 25.0 24.0 Anion Gap 8 12 BUN 27 H 27 H Creatinine 1.36 H 1.26 Estim Creat Clear Calc 46.58 50.27 Est GFR (MDRD) Af Amer 67 72 Est GFR (MDRD) Non-Af 55 L 60 BUN/Creatinine Ratio 19.9 21.4 H Glucose 109 H 140 H Calcium 7.5 L 7.8 L Magnesium 2.3 Troponin I 0.140 H 03/03/18 03/03/18 03/03/18 04:50 04:50 09:00 WBC 8.5 RBC 3.16 L Hgb 8.6 L Hct 27.4 L MCV 86.7 MCH 27.2 MCHC 31.4 L RDW 17.5 H RDW Differential 53.7 H Plt Count 187 MPV 10.1 Immature Gran % (Auto) 0.200 Neut % (Auto) 76.1 H Lymph % (Auto) 11.9 L [place] % (Auto) 11.2 H Eos % (Auto) 0.2 Baso % (Auto) 0.4 Absolute Neuts (auto) 6.5 Absolute Lymphs (auto) 1.02 Total Counted Not Reportable Sodium Potassium Chloride Carbon Dioxide Anion Gap BUN Creatinine Estim Creat Clear Calc Est GFR (MDRD) Af Amer Est GFR (MDRD) Non-Af BUN/Creatinine Ratio Glucose Calcium Magnesium Troponin I 0.144 H 0.128 H POC Glucose 03/03/18 00:12 POC Glucose 107 Medical Necessity - Tobacco Use Smoking Status: Former smoker Assessment/Plan All Active Problems (Last Reviewed 02/28/18 @ 01:55 by Johann Thomas MD) Renal cell carcinoma (Resolved) Thyroid cancer (Resolved) This is a 72 years old male patient admitted because of acute GI bleed with acute blood loss anemia as well as hypotension and he was found to have indeterminant cardiac enzymes. #1 acute GI bleed: Status post upper EGD and colonoscopy that revealed no evidence of active bleeding. Patient denies any more active bleeding from body orifices. Hemoglobin and hematocrit stabilized after blood transfusion. Xarelto held. He is hypotensive, on Levophed. Other vital signs are stable. Plan to keep patient in ICU tonight, wean Levophed as tolerated, repeat CBC and BMP tomorrow morning. #2 acute blood loss anemia: Secondary to above, received 2 units of packed RBCs. Today's hemoglobin is 8.6 g/dL. Status post upper EGD and colonoscopy as above, no active bleeding. Plan to monitor CBC tomorrow morning, transfuse if improved less than 8 g/dL. #3 hypotension/probable cardiogenic shock: He is on IV Levophed, blood pressure improved. 2D echocardiogram revealed ejection fraction 55%, severely dilated right ventricle and RVSP of about 100 consistent with severe pulmonary hypertension. Plan to wean IV Levophed as tolerated. #4 indeterminate cardiac enzymes: Likely secondary to demand ischemia from stress. EKG revealed normal sinus rhythm first degree AV block, T-wave inversion and ST segment depression on lateral chest leads and those are chronic, no acute ischemic changes. Patient denies any chest pain. No indication for further cardiac workup. #5 hypokalemia: Potassium replaced and corrected. #6 stage III chronic kidney disease: Baseline creatinine has been around 1.2-1.5 mg/dL. Today's creatinine is 1.26, stable at baseline. #7 chronic atrial fibrillation: Rate is controlled, blood pressure stable. Continue metoprolol for rate control as well as digoxin. Xarelto held. #8 COPD: He is on Pulmicort twice daily and albuterol as needed. Pulse ox is maintained on 5 days of oxygen. Plan to start DuoNeb every 6 hours. #9 history of thyroid cancer: Status post thyroidectomy, on levothyroxine for replacement. #10 benign prostatic hypertrophy: Continue Flomax and Proscar. #11 DVT prophylaxis: SCDs. This note was generated with [employer] software. It may contain incorrect words, spelling, and punctuation that were not noted in checking the note before signing. Code Visit Inpatient E&M: 38423 Subs Hosp L2
--- NOTE | 2018-03-03 11:10 | CASEMGMT ---
SW participated in ICU rounds this morning, several family members present. Plan continues to be for pt to go to TCU at discharge, SW let pt and family know that the precert w/insurance was started yesterday. It is anticipated pt may be ready for discharge tomorrow or Thursday. NESTOR let Yadi in TCU know this, she will continue to proceed w/attaining precert from pt's insurance. NESTOR will continue to follow. ARIELLA Reese, LACQUER SHADER
[2018-03-03] MEDS: Finasteride 5 MG Tablet PO (11:17)
[2018-03-03] MEDS: Tamsulosin HCl 0.4 MG Capsule PO (11:17)
[2018-03-03 16:31] LABS: Bedside Glucose 126 mg/dL (70-110)
[2018-03-03] MEDS: Ipratropium/Albuterol Sulfate 3 ML AMPUL.NEB INHALATION (18:32)
[2018-03-04] VITALS (18 sets, daily range): BP systolic 96–123; BP diastolic 40–57; PULSE 69–93; RESP 15–21; TEMP 36.7–37.1; O2SAT 92–100
[2018-03-04 00:35] LABS: Bedside Glucose 121 mg/dL (70-110)
[2018-03-04] MEDS: Ipratropium/Albuterol Sulfate 3 ML AMPUL.NEB INHALATION ×2 (01:05→06:40)
[2018-03-04 04:22] LABS: Absolute Lymphocyte Count 1.14 X10^3/ul (0.83-4.51); Absolute Neutrophil Count 6.6 X10^3/uL (2.0-7.7); Basophil# 0.03 X10^3/uL; Basophil% 0.3 % (0-1); Eosinophil# 0.06 X10^3/uL; Eosinophils% 0.7 % (0-5); Hemoglobin 8.5 g/dl (13.0-16.5); Lymphocyte # 1.14 X10^3/ul (4.0); Lymphocyte % 13.1 % (19-41); Mean Corp Hgb Conc 31.5 g/gl (32-36); Mean Corpuscular Hgb 27.1 pg (27.0-32.0); Mean Platelet Vol. 10.3 fl (6.2-12.0); Monocyte# 0.88 X10^3/uL; Monocyte% 10.1 % (0-10); Neutrophil # 6.55 X10^3/uL (2.7-7.7); Neutrophil % 75.5 % (47-70); Platelet Count 193 K/mm3 (150-450); RBC Distribution Width CV 17.6 % (11.6-14.6); RBC Distribution Width SD 53.9 fl (35.1-43.9); Red Blood Count 3.14 M/mm3 (4.6-6.2); White Blood Count 8.7 K/mm3 (4.4-11.0)
[2018-03-04 04:30] LABS: POSITIVE COUNT NO; POSITIVE DIFFERENTIAL NO; POSITIVE MORPHOLOGY NO
[2018-03-04 04:36] LABS: Anion Gap 12 (5-15); BUN 26 mg/dL (7-18); Calcium,Total 8.1 mg/dL (8.5-10.1); Chloride 105 mmol/L (98-107); Creatinine, Serum 1.24 mg/dL (0.70-1.30); EST Glomerular Filtration Rate 61 mL/min (>60); Est Glom Filt Rate - Afr Amer 74 mL/min (>60); Estimated Creatinine Clearance 51.09 ml/min; Glucose 108 mg/dL (74-106); Potassium 4.1 mmol/L (3.5-5.1); Sodium Level 141 mmol/L (136-145)
[2018-03-04] MEDS: Levothyroxine 100 MCG Tablet PO (05:26)
--- NOTE | 2018-03-04 06:31 | PCM.PN.INT ---
Subjective: Patient did okay overnight. Patient has remained on Levophed for most of the day secondary to marginal blood pressures. Patient has had some orthostatic type changes, but no fluid boluses have been given secondary to oxygenation requiring 6 L/min. No fever has been noted. No blood loss has been noted. Patient denies any symptoms while on Levophed therapy. General: Alert, Oriented x3, Cooperative, No apparent distress, Well developed, Well nourished, - - Speaking in full sentences HEENT: Atraumatic, PERRLA, EOMI, Normocephalic, - - No scleral icterus or injection noted. Oral: Moist Mucosa, No Gingival or Mucosal Lesions/ Ulcerations Neck: Supple, No Nodes, Trachea Midline, JVD, Right Lungs: No rhonchi, No wheeze, No rales, Diminished, - - Symmetric expansion. No dullness to percussion. Cardiovascular: Regular rate, Regular Rhythm, Normal S1, Normal S2, Murmur, No rub noted, No Gallop Abdomen: Bowel Sounds Present, Soft, Non Tender, Non-Distended Extremities: No cyanosis, Capillary Refill Less than 3 Seconds, Clubbing, Edema - Trace lower extremity Skin: No rashes, No breakdown Musculoskeletal: No Tenderness to Palpation of Joints or Extremities Lymphatic: No Cervical, Supraclavicular, or Inguinal Adenopathy Neurological: Cranial nerves II-XII grossly intact, Neuro grossly intact, Motor Exam 5/5 strength throughout Psych/Mental Status: Alert and oriented to time, place, person, mood and affect Vital Signs Temp Pulse Resp BP Pulse Ox 36.7 C 69 20 H 101/51 L 97 03/04/18 05:00 03/04/18 06:00 03/04/18 06:00 03/04/18 06:00 03/04/18 06:00 Oxygen Flow Rate (L/min) 6 Oxygen Delivery Method Nasal Cannula Weight: 91.7 kg Body Mass Index (BMI) 28.5 Intake and Output for Last 24 Hours 03/02/18 03/03/18 03/04/18 23:59 23:59 23:59 Intake Total 2970 / 2970 1633.7 / 1633.7 529.8 / 529.8 Output Total 200 / 200 975 / 975 800 / 800 Balance 2770 / 2770 658.7 / 658.7 -270.2 / -270.2 Labs (Last 48 Hours) 03/02/18 03/03/18 03/03/18 06:04 00:12 00:40 WBC RBC Hgb 8.8 L Hct 28.6 L MCV MCH MCHC RDW RDW Differential Plt Count MPV Immature Gran % (Auto) Neut % (Auto) Lymph % (Auto) [place] % (Auto) Eos % (Auto) Baso % (Auto) Absolute Neuts (auto) Absolute Lymphs (auto) Total Counted Sodium Potassium Chloride Carbon Dioxide Anion Gap BUN Creatinine Estim Creat Clear Calc Est GFR (MDRD) Af Amer Est GFR (MDRD) Non-Af BUN/Creatinine Ratio Glucose Calcium Magnesium Troponin I POC Glucose 86 107 03/03/18 03/03/18 03/03/18 01:15 04:50 04:50 WBC 8.5 RBC 3.16 L Hgb 8.6 L Hct 27.4 L MCV 86.7 MCH 27.2 MCHC 31.4 L RDW 17.5 H RDW Differential 53.7 H Plt Count 187 MPV 10.1 Immature Gran % (Auto) 0.200 Neut % (Auto) 76.1 H Lymph % (Auto) 11.9 L [place] % (Auto) 11.2 H Eos % (Auto) 0.2 Baso % (Auto) 0.4 Absolute Neuts (auto) 6.5 Absolute Lymphs (auto) 1.02 Total Counted Not Reportable Sodium 136 139 Potassium 4.4 4.1 Chloride 103 103 Carbon Dioxide 25.0 24.0 Anion Gap 8 12 BUN 27 H 27 H Creatinine 1.36 H 1.26 Estim Creat Clear Calc 46.58 50.27 Est GFR (MDRD) Af Amer 67 72 Est GFR (MDRD) Non-Af 55 L 60 BUN/Creatinine Ratio 19.9 21.4 H Glucose 109 H 140 H Calcium 7.5 L 7.8 L Magnesium 2.3 Troponin I 0.140 H POC Glucose 03/03/18 03/03/18 03/03/18 04:50 09:00 16:26 WBC RBC Hgb Hct MCV MCH MCHC RDW RDW Differential Plt Count MPV Immature Gran % (Auto) Neut % (Auto) Lymph % (Auto) [place] % (Auto) Eos % (Auto) Baso % (Auto) Absolute Neuts (auto) Absolute Lymphs (auto) Total Counted Sodium Potassium Chloride Carbon Dioxide Anion Gap BUN Creatinine Estim Creat Clear Calc Est GFR (MDRD) Af Amer Est GFR (MDRD) Non-Af BUN/Creatinine Ratio Glucose Calcium Magnesium Troponin I 0.144 H 0.128 H POC Glucose 126 H 03/04/18 03/04/18 03/04/18 00:25 04:08 04:08 WBC 8.7 RBC 3.14 L Hgb 8.5 L Hct 27.0 L MCV 86.0 MCH 27.1 MCHC 31.5 L RDW 17.6 H RDW Differential 53.9 H Plt Count 193 MPV 10.3 Immature Gran % (Auto) 0.300 Neut % (Auto) 75.5 H Lymph % (Auto) 13.1 L [place] % (Auto) 10.1 H Eos % (Auto) 0.7 Baso % (Auto) 0.3 Absolute Neuts (auto) 6.6 Absolute Lymphs (auto) 1.14 Total Counted Not Reportable Sodium 141 Potassium 4.1 Chloride 105 Carbon Dioxide 24.0 Anion Gap 12 BUN 26 H Creatinine 1.24 Estim Creat Clear Calc 51.09 Est GFR (MDRD) Af Amer 74 Est GFR (MDRD) Non-Af 61 BUN/Creatinine Ratio 21.0 H Glucose 108 H Calcium 8.1 L Magnesium Troponin I POC Glucose 121 H Clinical Impression(s) from Imaging Studies Chest X-Ray 03/03/18 04:48 IMPRESSION: Increasing infiltration in the left lower lobe with blunting of the left costophrenic angle. Stable right upper lobe infiltration and findings suggestive of spectral mass which is better seen on the CT scan of the thorax. Electronically Signed: Uriah Tyson MD at 8:05 EDT Tel [phone], Service support , Medical Necessity - Tobacco Use Smoking Status: Former smoker Assessment/Plan All Active Problems (Last Reviewed 02/28/18 @ 01:55 by Johann Thomas MD) Renal cell carcinoma (Resolved) Thyroid cancer (Resolved) RECOMMENDATIONS: 1. Wean off pressor therapy 2. Possible initiation of stress dose steroids 3. Obtain echocardiogram, limited to ensure stability of function 4. Continue scheduled bronchodilators. 5. Obtain random cortisol IMPRESSIONS: 1. Acute blood loss anemia with concern for gastrointestinal blood loss in the setting of Xarelto utilization Patient has had upper and lower endoscopies and no obvious source of bleeding has been noted. Patient's hemoglobin has remained relatively stable. Patient with hypotension following administration of morphine therapy. No clinical signs of bleeding have been noted. Doubt hypotension is secondary to recurrent bleed given stable hemoglobin. 2. Personal history of COPD of unknown severity along with chronic hypoxemic respiratory failure Continue supplemental oxygen and wean as tolerated. Continue scheduled bronchodilators. Patient's respiratory status appears to be stabilizing with H&H. Continue supplemental oxygen to keep saturations 88-92%. Patient does have an element of pulmonary hypertension that complicates overall disease status. Will obtain a limited echo for evaluation. Troponins were not consistent with acute infarction. 3. History of thyroid cancer/kidney cancer/non-small cell carcinoma status post radiation treatment Continue outpatient follow-up with oncology as scheduled. 4. Paroxysmal atrial fibrillation, on Xarelto Continue beta-sawyer for rate control. Continue to hold Xarelto as noted above. Reinitiation of anticoagulation may be considered. Would recommend Eliquis therapy over Xarelto given decreased half-life. 5. Acute kidney injury/hypokalemia RESOLVED > likely prerenal in etiology. The patient's creatinine has improved following volume expansion. We will continue to monitor. No indication for renal replacement therapy at this time. Electrolyte repletion is underway. 6. Troponin elevation Likely a type II demand ischemia in the setting of anemia. 7. BPH/hypothyroidism/peripheral vascular disease Complicates care, management, recovery and prognosis. Likely okay to reinitiate Synthroid therapy 8. Distributive/cardiogenic shock Unclear etiology at this time. Patient does not act as though he is septic or having ongoing blood loss. Patient does have a history of malignancy and patient may have an element of adrenal insufficiency. Will check a cortisol for evaluation. We will also check a limited echocardiogram for comparison. Patient just had one 3 days ago, but was normotensive at that time. Patient's troponin levels are not consistent with an acute ischemic event. Patient's oxygenation is marginal at 6 L/min. Patient has been off of anticoagulation, so a pulmonary embolism with elevated right-sided pressures cannot be excluded. If workup is unremarkable, possible initiation of Midodrin later today. This note was generated with [employer] software. It may contain incorrect words, spelling, and punctuation that were not noted in checking the note before signing. Addendum 10 AM: At approximately 8:20 AM, patient had asked to sit at the side of the bed. Patient was placed on the side of the bed and per the started to complain of shortness of breath. Patient's eyes rolled in the back of his head and he felt back unresponsive. Patient did receive approximately 25 minutes of CPR with epinephrine, 3 A of bicarb and compressions. Patient was intubated during the code. At 8:47 AM, patient's rhythm was checked and patient was noted to be in asystole with no pulse. Patient was pronounced by myself. Patient had a cortisol level drawn prior to code situation, but echocardiogram was not obtained. Clinical suspicion for right heart failure with possible pulmonary embolism, but autopsy would be needed to clarify cause of . Patient was off of anticoagulation for a number of days secondary to a GI bleed. TIME: 33 minutes critical care time spent addressing patient's acute hypotension, acute blood loss anemia, COPD, review of all data and collaboration with care team (5:30 AM to 6:45 AM) Code Visit 9xxxx: [id number] Critical care first hour
[2018-03-04] MEDS: Budesonide Respules 0.5 MG/2 ML AMPUL.NEB. INHALATION (06:42)
--- NOTE | 2018-03-04 08:07 | PCM.PN.SRG ---
Patient Problems: Active and Suspected Problems (Last Reviewed 02/28/18 @ 01:55 by Johann Thomas MD) GIB (gastrointestinal bleeding) (Suspected) Subjective: Patient is tolerating regular diet with no ongoing bleeding. - Physical Exam General: Alert, Oriented x3, Cooperative Lungs: Normal air movement Abdomen: Soft, Non Tender, Non-Distended Vital Signs Temp Pulse Resp BP Pulse Ox 98.4 F 89 21 H 96/48 L 93 03/04/18 08:00 03/04/18 08:00 03/04/18 08:00 03/04/18 08:00 03/04/18 08:00 Oxygen Flow Rate (L/min) 5 Oxygen Delivery Method Nasal Cannula Weight: 202 lb 2.622 oz Body Mass Index (BMI) 28.5 Intake and Output for Last 24 Hours 03/02/18 03/03/18 03/04/18 23:59 23:59 23:59 Intake Total 2970 / 2970 1633.7 / 1633.7 529.8 / 529.8 Output Total 200 / 200 975 / 975 800 / 800 Balance 2770 / 2770 658.7 / 658.7 -270.2 / -270.2 Laboratory Tests Past 24 Hrs 03/03/18 03/04/18 03/04/18 09:00 04:08 04:08 WBC 8.7 RBC 3.14 L Hgb 8.5 L Hct 27.0 L MCV 86.0 MCH 27.1 MCHC 31.5 L RDW 17.6 H RDW Differential 53.9 H Plt Count 193 MPV 10.3 Immature Gran % (Auto) 0.300 Neut % (Auto) 75.5 H Lymph % (Auto) 13.1 L [place] % (Auto) 10.1 H Eos % (Auto) 0.7 Baso % (Auto) 0.3 Absolute Neuts (auto) 6.6 Absolute Lymphs (auto) 1.14 Total Counted Not Reportable Sodium 141 Potassium 4.1 Chloride 105 Carbon Dioxide 24.0 Anion Gap 12 BUN 26 H Creatinine 1.24 Estim Creat Clear Calc 51.09 Est GFR (MDRD) Af Amer 74 Est GFR (MDRD) Non-Af 61 BUN/Creatinine Ratio 21.0 H Glucose 108 H Calcium 8.1 L Troponin I 0.128 H Cortisol 08/23/18 06:20 WBC RBC Hgb Hct MCV MCH MCHC RDW RDW Differential Plt Count MPV Immature Gran % (Auto) Neut % (Auto) Lymph % (Auto) [place] % (Auto) Eos % (Auto) Baso % (Auto) Absolute Neuts (auto) Absolute Lymphs (auto) Total Counted Sodium Potassium Chloride Carbon Dioxide Anion Gap BUN Creatinine Estim Creat Clear Calc Est GFR (MDRD) Af Amer Est GFR (MDRD) Non-Af BUN/Creatinine Ratio Glucose Calcium Troponin I Cortisol Pending POC Glucose 03/04/18 03/03/18 00:25 16:26 POC Glucose 121 H 126 H Medical Necessity - Tobacco Use Smoking Status: Former smoker Assessment/Plan All Active Problems (Last Reviewed 02/28/18 @ 01:55 by Johann Thomas MD) Renal cell carcinoma (Resolved) Thyroid cancer (Resolved) 72-year-old male with anemia 1. Patient is not showing any signs of ongoing GI bleeding. He had an EGD and colonoscopy which were both negative for bleeding. Hemoglobin is stable. 2. I reviewed the patient's pathology with him. 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 I recommend repeat colonoscopy in 3 years. Tom Higuera MD Pager: [facility] [address] [place] [address], [address] [place] [address] Office:
--- NOTE | 2018-03-04 08:18 | NURSING ---
Addendum entered by Bishop Gordon 03/04/18 09:11: patient was sat at edge of bed to eat breakfast per DIRECTOR [employer]OP[employer]OFT Sienna. Pt was conversing with Sienna when he stated that he was feeling dizzy and short of breath, Sienna called out of the room to this RN for help. Upon arriving to the room, the patient was witnessed falling back into bed and became rigid all over. Jaw was clamped shut, patient had pressured respirations, eyes open, was not responding to verbal or noxious stimuli. Respirations then became agonal and Rhythm on manager monitoring was witnessed going into asystole, no pulse was found, compressions initiated and code called. See code blue record for further documentation. Original Note: Alicia
[2018-03-04 08:31] LABS: Bedside Glucose 90 mg/dL (70-110)
[2018-03-04 08:46] LABS: Allen Test NEG; Base Excess -2 mmol/L (-2 to +2); Bicarbonate 25.1 mmol/L (22-26); Blood Gas Specimen Type ART; FI02 100; PO2 51 mmHG (75-100); SITE L Radial; SO2 79 % (95-99); Time Given 839; Total Carbon Dioxide 27 mmol/L; pCO2 57.2 mmHg (35-45); pH 7.25 (7.35-7.45)
--- NOTE | 2018-03-04 08:57 | CASEMGMT ---
Support offered to and family after code, SW remains available for support to family. ARIELLA Reese, TELEPHONIC CASE MANAGER
--- NOTE | 2018-03-04 10:29 | PCM.PROGNOTE ---
Patient Problems: Active and Suspected Problems (Last Reviewed 02/28/18 @ 01:55 by Johann Thomas MD) GIB (gastrointestinal bleeding) (Suspected) Subjective: Chief complaint: Follow-up after admission for acute GI bleed, acute blood loss anemia and overnight, patient became hypotensive, was transferred to ICU started on Levophed. On my way to the ICU, CODE TAH[facility] announced overhead and it was because this patient went into cardiac arrest. According to nursing staff, patient was doing well this morning until this happened, was sitting on the edge of the bed to eat breakfast, felt dizzy and he collapsed. He was rigid all over, not responding to verbal stimuli and he has regular breathing and on the monitor, he was in asystole. radiation monitor showed asystole and CPR was initiated. Upon my arrival, chest compressions was going on and CPR protocol was going on. Patient was intubated by Dr. Padilla by using a glidescope while doing CPR. CPR was continued for around 30 minutes, IV epinephrine was given per Protocol, continued on IV Levophed drip and he received multiple doses of IV sodium bicarb. After around 30 minutes of CPR, patient continued to have no pulse and continued to have asystole on the monitor. announced at 8:43 AM. - Physical Exam General: - - Patient is nonresponsive, comatosed. No response to painful or verbal stimuli. HEENT: Atraumatic, - - Pupils are round reactive, no ocular movements. Oral: Moist Mucosa, No Gingival or Mucosal Lesions/ Ulcerations Neck: Supple, Trachea Midline, Thyroid Normal Size and Texture Lungs: No rhonchi, No wheeze, No rales, Diminished, - - Bilateral air entry with Ambu bag. No spontaneous respiratory efforts. Cardiovascular: - - Good pulses was felt during the chest compressions. No pulse on palpation while chest compressions held. Abdomen: Bowel Sounds Present, Soft, Non-Distended, No Hepato-splenomegaly Extremities: No clubbing, No cyanosis, No edema Skin: No rashes, No breakdown Neurological: - - Unable to assess, patient is unresponsive. Vital Signs Temp Pulse Resp BP Pulse Ox 98.4 F 89 21 H 96/48 L 93 03/04/18 08:00 03/04/18 08:00 03/04/18 08:00 03/04/18 08:00 03/04/18 08:00 Oxygen Flow Rate (L/min) 5 Oxygen Delivery Method Nasal Cannula Weight: 202 lb 2.622 oz Body Mass Index (BMI) 28.5 Intake and Output for Last 24 Hours 03/02/18 03/03/18 03/04/18 23:59 23:59 23:59 Intake Total 2970 / 2970 1633.7 / 1633.7 529.8 / 529.8 Output Total 200 / 200 975 / 975 800 / 800 Balance 2770 / 2770 658.7 / 658.7 -270.2 / -270.2 Laboratory Tests Past 24 Hrs 03/04/18 03/04/18 03/04/18 04:08 04:08 06:20 WBC 8.7 RBC 3.14 L Hgb 8.5 L Hct 27.0 L MCV 86.0 MCH 27.1 MCHC 31.5 L RDW 17.6 H RDW Differential 53.9 H Plt Count 193 MPV 10.3 Immature Gran % (Auto) 0.300 Neut % (Auto) 75.5 H Lymph % (Auto) 13.1 L Ida % (Auto) 10.1 H Eos % (Auto) 0.7 Baso % (Auto) 0.3 Absolute Neuts (auto) 6.6 Absolute Lymphs (auto) 1.14 Total Counted Not Reportable Specimen Type Sample Site pH Bicarbonate Actual POC Total CO2 Base Excess O2 Saturation O2 % ABG pCO2 ABG pO2 Ha Test O2 Delivery Device Blood Gas Notified Whom Blood Gas Notified Time Sodium 141 Potassium 4.1 Chloride 105 Carbon Dioxide 24.0 Anion Gap 12 BUN 26 H Creatinine 1.24 Estim Creat Clear Calc 51.09 Est GFR (MDRD) Af Amer 74 Est GFR (MDRD) Non-Af 61 BUN/Creatinine Ratio 21.0 H Glucose 108 H Calcium 8.1 L Cortisol Pending 03/04/18 08:41 WBC RBC Hgb Hct MCV MCH MCHC RDW RDW Differential Plt Count MPV Immature Gran % (Auto) Neut % (Auto) Lymph % (Auto) Ida % (Auto) Eos % (Auto) Baso % (Auto) Absolute Neuts (auto) Absolute Lymphs (auto) Total Counted Specimen Type ART Sample Site L Radial pH 7.25 L Bicarbonate Actual 25.1 POC Total CO2 27 Base Excess -2 O2 Saturation 79 L O2 % 100 ABG pCO2 57.2 H ABG pO2 51 L Ha Test NEG O2 Delivery Device Ambu Blood Gas Notified Whom ICU MD Blood Gas Notified Time 839 Sodium Potassium Chloride Carbon Dioxide Anion Gap BUN Creatinine Estim Creat Clear Calc Est GFR (MDRD) Af Amer Est GFR (MDRD) Non-Af BUN/Creatinine Ratio Glucose Calcium Cortisol POC Glucose 03/04/18 03/04/18 03/03/18 08:27 00:25 16:26 POC Glucose 90 121 H 126 H Medical Necessity - Tobacco Use Smoking Status: Former smoker Assessment/Plan All Active Problems (Last Reviewed 02/28/18 @ 01:55 by Johann Thomas MD) Renal cell carcinoma (Resolved) Thyroid cancer (Resolved) This is a 72 years old male patient admitted because of acute GI bleed with acute blood loss anemia as well as hypotension and he was found to have indeterminant cardiac enzymes. This morning, he went into asystole status post failed CPR and announced at 8:43 AM. #1 cardiac arrest/asystole: Status post CPR, completed around 30 minutes of CPR without response. Patient received IV epinephrine, sodium bicarb during the CPR and he continued to show asystole on the monitor. Patient was intubated by using a glidescope. CPR failed and announced at 8:43 AM. #1 acute GI bleed: Status post upper EGD and colonoscopy that revealed no evidence of active bleeding. Patient denies any more active bleeding from body orifices. Hemoglobin and hematocrit stabilized after blood transfusion. Today's hemoglobin was 8.5 g/dL. #2 acute blood loss anemia: Secondary to above, received 2 units of packed RBCs. Today's hemoglobin is 8.5 g/dL. Status post upper EGD and colonoscopy as above, no active bleeding. #3 hypotension/probable cardiogenic shock: Patient was on very small dose of Levophed drip this morning before he had this cardiac arrest. 2D echocardiogram revealed ejection fraction 55%, severely dilated right ventricle and RVSP of about 100 consistent with severe pulmonary hypertension. #4 indeterminate cardiac enzymes: Likely secondary to demand ischemia from stress. EKG revealed normal sinus rhythm first degree AV block, T-wave inversion and ST segment depression on lateral chest leads and those are chronic, no acute ischemic changes. #5 hypokalemia: Potassium replaced and corrected. #6 stage III chronic kidney disease: Baseline creatinine has been around 1.2-1.5 mg/dL. Today's creatinine is 1.24, stable at baseline. #7 chronic atrial fibrillation: Status post failed cardiac arrest. #8 COPD: #9 history of thyroid cancer: Status post thyroidectomy. #10 benign prostatic hypertrophy: This note was generated with [employer] software. It may contain incorrect words, spelling, and punctuation that were not noted in checking the note before signing.
--- NOTE | 2018-03-04 10:44 | PCM.DEATH ---
Preliminary Cause of Cardiac arrest, probably acute right heart failure with possible PE. Date of Admission: 02/28/18 Date of : 03/04/18 - Principle Diagnosis #1 Hypotension/probable cardiogenic shock. #2 indeterminate cardiac enzymes. #3 acute GI bleed. #4 acute blood loss anemia. #5 hypokalemia. Problem List: Active and Suspected Problems (Last Reviewed 02/28/18 @ 01:55 by Johann Thomas MD) GIB (gastrointestinal bleeding) (Suspected) Hospital Course This is a 72 years old male patient admitted because of acute GI bleed complicated by acute blood loss anemia as well as hypotension. Patient underwent upper EGD and colonoscopy that revealed no evidence of active GI bleed. Patient was on Xarelto for chronic atrial fibrillation and that was discontinued. Patient received blood transfusion as appropriate for his dropping hemoglobin and received a total of 2 units and his hemoglobin remained above 8 g/dL. During this hospital stay, patient become hypotensive and he was transferred to the ICU, was started on vasopressors for possible cardiogenic shock. His 2D echocardiogram revealed ejection fraction 55%, severely dilated right ventricle and RVSP of about 100 consistent with severe pulmonary hypertension. Patient remained on IV Levophed to maintain his blood pressure as well as IV fluids. He was found to have indeterminate cardiac enzymes which is attributed to demand ischemia and stress. His EKG revealed T-wave inversion and ST segment depression in lateral chest leads without evidence of acute ischemic changes. On the morning of day of , patient did okay and was asked to sit on the edge of the bed. He felt dizzy, short of breath and shortly after, he became rigid all over and with agonal breathing and he went into asystole. CPR was performed for around 30 minutes, IV epinephrine and bicarb was given with the appropriate chest compressions and ventilation. Patient was intubated. CPR was continued for about 30 minutes and patient remained in asystole with pulse check and he announced at 8:43 AM on March 04, 2018. Code Visit Inpatient E&M: 24406 Disch Hosp
== END 2018-03-04 12:20 | DRG 377 ==
LOC: ED 02-28 01:12 → ICU 02-28 01:21 → PCU 03-01 12:00 → ICU 03-03 00:32
PROVIDERS: Family Medicine; Internal Medicine; Internal Medicine Critical Care Medicine; Surgery; Admitting Provider Internal Medicine; Emergency Provider Emergency Medicine; PCP Family Medicine; Visit Provider Hospitalist
PROC: 0DJ08ZZ Inspection of Upper Intestinal Tract, Via Natural or Artificial Opening Endoscopic (ICD-10-PCS; CPT 43235; principal; 2018-02-28 08:00)
PROC: 0DJD8ZZ Inspection of Lower Intestinal Tract, Via Natural or Artificial Opening Endoscopic (ICD-10-PCS; CPT 45378; principal; 2018-03-02 07:25)
DX: K92.2 Gastrointestinal hemorrhage, unspecified (principal); I26.99 Other pulmonary embolism without acute cor pulmonale; D62 Acute posthemorrhagic anemia; I24.8 Other forms of acute ischemic heart disease; J96.11 Chronic respiratory failure with hypoxia; R57.0 Cardiogenic shock; I48.2 Chronic atrial fibrillation; I50.811 Acute right heart failure; I46.8 Cardiac arrest due to other underlying condition; Z99.81 Dependence on supplemental oxygen; I44.0 Atrioventricular block, first degree; E87.6 Hypokalemia; I87.2 Venous insufficiency (chronic) (peripheral); J44.9 Chronic obstructive pulmonary disease, unspecified; D12.4 Benign neoplasm of descending colon; I27.29 Other secondary pulmonary hypertension; E89.0 Postprocedural hypothyroidism; N40.0 Benign prostatic hyperplasia without lower urinary tract symptoms; I73.9 Peripheral vascular disease, unspecified; Z79.01 Long term (current) use of anticoagulants; Z87.891 Personal history of nicotine dependence; Z79.899 Other long term (current) drug therapy; Z85.528 Personal history of other malignant neoplasm of kidney; Z92.3 Personal history of irradiation; Z90.5 Acquired absence of kidney; Z85.850 Personal history of malignant neoplasm of thyroid
CPT/HCPCS: 31500; 36415; 36600; 71045; 71046; 74176; 80048; 80162; 81001; 82533; 82803; 82962; 83605; 83735; 84100; 84484; 85014; 85018; 85025; 86850; 86900; 86920; 86922; 87040; 87641; 88305; 92950; 93005; 93306; 94640; 97110; 97162; 97166; 97530; 97802; 99285; J7030; J7040; J7050; P9016; A4216; J3490